=== PATIENT | female | born 1955 | race Caucasian/White ===

== ENCOUNTER 2019-08-17 17:48 | Outpatient (CLI) | payer MEDICARE, OTHER, SELFPAY ==
[2019-08-20 09:13] LABS: Basophils Absolute Auto 0.02 K/mm3 (0.00-0.10); Basophils Percent Auto 0.3 % (0.0-1.0); Eosinophils Absolute Auto 0.15 K/mm3 (0.02-0.50); Eosinophils Percent Auto 1.9 % (1.0-6.0); Hematocrit 47.8 % (35.0-42.0); Hemoglobin 15.8 g/dL (11.7-13.8); Immature Granulocyte Absolute 0.03 K/mm3 (0.00-0.00); Immature Granulocyte Percent A 0.4 % (0.0-0.0); Immature Platelet Fraction Pct 4.9 % (1.0-7.0); Lymphocytes Absolute Auto 1.18 K/mm3 (1.10-4.50); Lymphocytes Percent Auto 14.8 % (18.0-42.0); Mean Corpuscular HGB Conc 33.1 g/dL (32.0-36.0); Mean Corpuscular Hemoglobin 31.2 pg (27.0-31.0); Mean Corpuscular Volume 94.5 fL (78.0-102.0); Mean Platelet Volume 11.8 fl (9.2-11.8); Monocytes Absolute Auto 0.42 K/mm3 (0.10-0.90); Monocytes Percent Auto 5.3 % (2.0-11.0); Neutrophils Absolute Auto 6.2 K/mm3 (1.7-7.2); Neutrophils Percent Auto 77.3 % (50.0-70.0); Platelet Count Result 118 K/mm3 (150-420); Red Blood Count 5.06 M/mm3 (4.20-5.40); Red Cell Distribution Width 16.6 % (11.6-14.4)
[2019-08-20 09:23] LABS: Alanine Aminotransferase 21 U/L (14-59); Albumin Level 4.2 g/dL (3.4-5.0); Alkaline Phosphatase 131 U/L (46-116); Anion Gap 11.8 mmol/L (7-16); Aspartate Amino Transferase 27 U/L (15-37); Blood Urea Nitrogen 45 mg/dL (7-18); Calcium 9.1 mg/dL (8.5-10.1); Carbon Dioxide 37 mmol/L (21-32); Chloride 91 mmol/L (98-108); Estimated Glomerular Filt Rate 26; Glucose 164 mg/dL (70-99); Osmolality Calculated 299 mOsm/kg (285-295); Potassium 2.8 mmol/L (3.5-5.1); Sodium 137 mmol/L (136-145); Total Protein 7.3 g/dL (6.4-8.2)
[2019-08-22 01:04] LABS: Immunoglobulin E 194 kU/L (<=114)
== END 2019-08-17 17:49 | disposition home or self-care (01) ==
LOC: CHSLAB 18:00
PROVIDERS: Internal Medicine Cardiovascular Disease; PCP Nurse Practitioner Family
DX: J43.9 Emphysema, unspecified (principal); I48.19 Other persistent atrial fibrillation; I50.32 Chronic diastolic (congestive) heart failure; R19.7 Diarrhea, unspecified
CPT/HCPCS: 36415; 80053; 82785; 85025; 85055

== ENCOUNTER 2019-08-22 14:43 | Outpatient (CLI) | payer MEDICARE, SELFPAY ==
[2019-08-22 15:47] LABS: Anion Gap 13.6 mmol/L (7-16); Blood Urea Nitrogen 42 mg/dL (7-18); Calcium 8.8 mg/dL (8.5-10.1); Carbon Dioxide 32 mmol/L (21-32); Chloride 95 mmol/L (98-108); Estimated Glomerular Filt Rate 34; Glucose 132 mg/dL (70-99); Osmolality Calculated 296 mOsm/kg (285-295); Potassium 3.6 mmol/L (3.5-5.1); Sodium 137 mmol/L (136-145)
== END 2019-08-22 14:44 | disposition home or self-care (01) ==
LOC: CHSLAB 14:47
PROVIDERS: PCP Nurse Practitioner Family
DX: E87.6 Hypokalemia (principal)
CPT/HCPCS: 80048

== ENCOUNTER 2019-08-23 12:10 | Outpatient (CLI) | payer MEDICARE, OTHER, SELFPAY ==
--- NOTE | ~2019-08-23 | MM_ITS ---
EXAMINATION: MM screening chester BI w toan HISTORY: Screening mammogram TECHNIQUE: Craniocaudal and mediolateral oblique 3-D tomosynthesis images were obtained and synthetic 2-D images were generated. CAD analysis was submitted and interpreted. COMPARISON: 04/13/2010 bilateral digital screening mammogram BREAST PARENCHYMAL COMPOSITION: There are scattered areas of fibroglandular density. FINDINGS: Numerous bilateral benign calcified microhematomas. There is no evidence of suspicious mass , calcification, or architectural distortion to suggest malignancy in either breast. There has been n o suspicious interval change. IMPRESSION: 1. No mammographic evidence of malignancy. 2. Recommend routine screening mammography in one year. BI-RADS Category 2: Benign finding(s). Reviewed, dictated and finalized at location B. S MELT OPERATOR
== END 2019-08-23 12:11 | disposition home or self-care (01) ==
LOC: CHSIMG 12:12
PROVIDERS: PCP Nurse Practitioner Family; Visit Provider Nurse Practitioner Family
DX: Z12.31 Encounter for screening mammogram for malignant neoplasm of breast (principal)
CPT/HCPCS: 77063; 77067

== ENCOUNTER 2019-12-02 07:51 | Outpatient (CLI) | payer MEDICARE, OTHER, SELFPAY ==
--- NOTE | ~2019-12-02 | CT_ITS ---
EXAMINATION:CT chest w con DATE: 12/02/2019 08:43 INDICATION: Non-small cell left lung cancer. TECHNIQUE: Computed tomography (CT) of the chest was performed with 75 mL Omnipaque 350 intravenous c ontrast. Automated exposure control and iterative reconstruction technique were employed. The dose-le ngth product (DLP) was 880.10 mGy-cm. COMPARISON: Chest CT 08/06/2019 FINDINGS: There is mild emphysema. There is a 5 mm nodule in right lower lobe. There is a 4 mm nodule in right lower lobe. There is a 6 mm nodule in right lower lobe. There is a 6 mm nodule in left lowe r lobe. There is a 4 mm nodule in left upper lobe. There is a 12 mm nodule in left upper lobe, decrea sed from 26 mm on 08/06/2019. There are mild groundglass opacities in left upper lobe, likely radiatio n pneumonitis. No pleural effusion. There is a 10 x 14 mm left hilar lymph node. Cardiomegaly is note d. There are coronary artery calcifications. No pericardial effusion. There are calcifications of the aortic valve. The central pulmonary arteries are enlarged, consistent with pulmonary arterial hypert ension. There is levoscoliosis of upper thoracic spine and dextroscoliosis of mid thoracic spine. The re is severe thoracic spondylosis. IMPRESSION: 1. 12 mm nodule in left lung upper lobe with improvement from 26 mm, consistent with primary bronchog enic carcinoma. 2. Stable borderline enlarged left hilar lymph node, which is indeterminate for metastatic disease. 3. Worsened small pulmonary nodules, which may be granulomatous disease or metastatic disease. Reviewed, dictated and finalized at location E. IMPRESSION: 1. 12 mm nodule in left lung upper lobe with improvement from 26 mm, consistent with primary bronchogenic carcinoma. 2. Stable borderline enlarged left hilar lymph node, which is indeterminate for metastatic disease. 3. Worsened small pulmonary nodules, which may be granulomatous disease or meta static disease.
[2019-12-02 08:13] LABS: Estimated Glomerular Filt Rate 31
== END 2019-12-02 07:52 | disposition home or self-care (01) ==
PROVIDERS: PCP Nurse Practitioner Family; Visit Provider Internal Medicine Medical Oncology
DX: C34.92 Malignant neoplasm of unspecified part of left bronchus or lung (principal)
CPT/HCPCS: 71260; Q9965

== ENCOUNTER 2019-12-12 11:28 | Outpatient (CLI) | payer MEDICARE, SELFPAY ==
[2019-12-12 12:57] LABS: Anion Gap 15.4 mmol/L (7-16); Blood Urea Nitrogen 35 mg/dL (7-18); Carbon Dioxide 30 mmol/L (21-32); Chloride 96 mmol/L (98-108); Estimated Glomerular Filt Rate 34; Glucose 136 mg/dL (70-99); Osmolality Calculated 296 mOsm/kg (285-295); Potassium 3.4 mmol/L (3.5-5.1); Sodium 138 mmol/L (136-145)
== END 2019-12-12 11:29 | disposition home or self-care (01) ==
LOC: CHSLAB 11:31
PROVIDERS: PCP Nurse Practitioner Family; Visit Provider Nurse Practitioner Adult Health
DX: I50.32 Chronic diastolic (congestive) heart failure (principal)
CPT/HCPCS: 36415; 80048

== ENCOUNTER 2020-03-03 07:31 | Outpatient (CLI) | payer MEDICARE, OTHER, SELFPAY ==
--- NOTE | ~2020-03-03 | CT_ITS ---
EXAMINATION: CT chest w con EXAM DATE: 03/03/2020 08:39 INDICATION: Follow-up non-small cell lung cancer. COPD. TECHNIQUE: Spiral CT of the chest following intravenous injection of 75 mL Omnipaque 350. Axial, cor onal and sagittal images were reviewed. Coronal maximum intensity pixel images of chest reviewed. T alvaro dose-length product (DLP) for this examination was 992.81 mGy-cm. The exposure was tailored accor ding to patient size (auto mA exposure control), and iterative reconstruction (ASIR) was used as juan alberto tional dose reduction technique. Comparison is made to prior examination from 12/02/2019. FINDINGS: Previously seen round left upper lobe nodule at 12 mm diameter has continued to decrease i n size, now is more narrow in one dimension at 12 x 8 mm. Several other small pulmonary nodules, 4 mm or less unchanged. These could be granulomas but metastatic disease not excludable. Left lung linear atelectasis is unchanged. No new nodules identified. There is mild to moderate emphysema. There is been interval increase in size of left hilar lymph node, measuring 3.0 x 1.7 cm on this exam versus 1.8 x 0.8 on prior study, likely metastatic disease. No other pathologically enlarged lymph n odes. There are no pleural or pericardial effusions. Tracheobronchial tree is patent. There is no pneumothorax. Heart normal in size. There is mild coronary arterial calcification, arterial scle rosis. Low-density left adrenal gland lesion incompletely imaged but measuring about 2 cm, consisten t with adenoma. There is moderate thoracic spondylosis and mild to moderate upper thoracic levoscoli osis, mid thoracic dextroscoliosis. IMPRESSION: 1. Decrease in size of left upper lobe nodule consistent with primary bronchogenic carcinoma. 2. Increase in size of left hilar lymph node, now pathologically enlarged, metastatic. 3. Several small nodules unchanged. Granulomata or possibly metastatic. 4. Mild to moderate emphysema. Reviewed, dictated and finalized at location B. IMPRESSION: 1. Decrease in size of left upper lobe nodule consistent with primary bronchog enic carcinoma. 2. Increase in size of left hilar lymph node, now pathologically enlarged, met astatic. 3. Several small nodules unchanged. Granulomata or possibly metastatic. 4. Mild to moderate emphysema.
[2020-03-03 07:54] LABS: Estimated Glomerular Filt Rate 36
== END 2020-03-03 07:32 | disposition home or self-care (01) ==
PROVIDERS: PCP Nurse Practitioner Family; Visit Provider Internal Medicine Medical Oncology
DX: C34.92 Malignant neoplasm of unspecified part of left bronchus or lung (principal); C34.12 Malignant neoplasm of upper lobe, left bronchus or lung
CPT/HCPCS: 71260; Q9965

== ENCOUNTER 2020-03-06 12:55 | Outpatient (CLI) | payer MEDICARE, SELFPAY ==
[2020-03-06 13:10] LABS: Basophils Absolute Auto 0.02 K/mm3 (0.00-0.10); Basophils Percent Auto 0.3 % (0.0-1.0); Eosinophils Absolute Auto 0.17 K/mm3 (0.02-0.50); Eosinophils Percent Auto 2.6 % (1.0-6.0); Hematocrit 35.2 % (35.0-42.0); Hemoglobin 11.1 g/dL (11.7-13.8); Immature Granulocyte Absolute 0.03 K/mm3 (0.00-0.00); Immature Granulocyte Percent A 0.5 % (0.0-0.0); Lymphocytes Absolute Auto 0.89 K/mm3 (1.10-4.50); Lymphocytes Percent Auto 13.8 % (18.0-42.0); Mean Corpuscular HGB Conc 31.5 g/dL (32.0-36.0); Mean Corpuscular Volume 98.3 fL (78.0-102.0); Mean Platelet Volume 10.6 fl (9.2-11.8); Monocytes Absolute Auto 0.29 K/mm3 (0.10-0.90); Monocytes Percent Auto 4.5 % (2.0-11.0); Neutrophils Absolute Auto 5.1 K/mm3 (1.7-7.2); Neutrophils Percent Auto 78.3 % (50.0-70.0); Platelet Count Result 119 K/mm3 (150-420); Red Blood Count 3.58 M/mm3 (4.20-5.40); Red Cell Distribution Width 16.5 % (11.6-14.4); White Blood Count 6.5 K/mm3 (4.8-10.8)
[2020-03-06 14:41] LABS: Alanine Aminotransferase 25 U/L (14-59); Albumin Level 3.5 g/dL (3.4-5.0); Alkaline Phosphatase 91 U/L (46-116); Anion Gap 9 mmol/L (8-16); Aspartate Amino Transferase 27 U/L (15-37); Bilirubin,Total 0.9 mg/dL (0.00-1.00); Blood Urea Nitrogen 22 mg/dL (7-18); Calcium 8.5 mg/dL (8.5-10.1); Carbon Dioxide 29 mmol/L (21-32); Chloride 101 mmol/L (98-108); Estimated Glomerular Filt Rate 41; Glucose 167 mg/dL (70-99); Osmolality Calculated 295 mOsm/kg (285-295); Potassium 3.8 mmol/L (3.5-5.1); Sodium 139 mmol/L (136-145); Total Protein 6.6 g/dL (6.4-8.2)
== END 2020-03-06 12:56 | disposition home or self-care (01) ==
LOC: CHSLAB 12:59
PROVIDERS: PCP Nurse Practitioner Family; Visit Provider Internal Medicine Cardiovascular Disease
DX: I50.32 Chronic diastolic (congestive) heart failure (principal); D73.2 Chronic congestive splenomegaly
CPT/HCPCS: 36415; 80053; 85025

== ENCOUNTER 2020-05-05 10:11 | Emergency (ER) | payer MEDICARE, OTHER, SELFPAY ==
[2020-05-05 11:00] VITALS: BP 118/65; PULSE 100; RESP 20; TEMP 36.1; O2SAT 96
--- NOTE | 2020-05-05 11:01 | ED.RECABL ---
HPI - Recheck/Abnormal Lab/Rx General Chief Complaint: Recheck/Abnormal Lab/Rx Stated Complaint: High blood surgar Time Seen by Provider: 05/05/20 11:02 Source: patient Mode of arrival: wheelchair Limitations: no limitations History of Present Illness HPI narrative: 64-year-old woman being treated for a lung nodule with radio and chemotherapy comes in today complaining of an elevated blood sugar. She states she got chemotherapy and some fluids yesterday and labs there showed a blood sugar of 300. She rechecked her blood sugar this morning using her 's glucometer and it was a high reading. She denies history of diabetes and a family history of diabetes. She states she does not believe she is taking any steroids. MD complaint: abnormal lab Initial visit (ago): day(s) (1) Returns today for: called because of abnormal lab/test Symptoms since prior visit: no new symptoms Associated symptoms: shortness of breath (chronic) and nausea (and one episode of vomiting in the last day) Related Data Home Medications Medication Instructions Recorded Confirmed apixaban 5 mg tablet 5 mg PO BID 08/05/19 05/05/20 carvedilol 25 mg tablet 37.5 mg PO DAILY tablet 08/05/19 05/05/20 diltiazem HCl 240 mg 240 mg PO DAILY 08/05/19 05/05/20 capsule,extended release 24 hr magnesium oxide 400 mg PO DAILY 08/05/19 05/05/20 calcium carbonate 600 mg (1,500 1 cap PO BID cap 12/20/19 05/05/20 mg)-vitamin D3 500 unit capsule metolazone 5 mg tablet 5 mg PO DAILY 12/20/19 05/05/20 potassium chloride 10 mEq 20 meq PO BID cap 12/20/19 05/05/20 capsule,extended release Allergies Allergy/AdvReac Type Severity Reaction Status Date / Time acetaminophen [Vicodin] Allergy Intermediate unkown Verified 03/06/20 07:52 hydrocodone [Vicodin] Allergy Intermediate unknown Verified 03/06/20 07:52 Review of Systems Constitutional: Constitutional: Denies chills, Denies fever(s) and Denies weakness Eyes: Eyes: Denies change in vision and Denies photophobia ENT: Denies dysphagia, Denies nasal congestion and Denies sore throat Cardiovascular: Cardiovascular: Denies chest pain and Denies radiating jaw, neck or arm pain Respiratory: Respiratory: Denies cough, Denies dyspnea and Denies wheezing Gastrointestinal: Gastrointestinal: Denies abdominal pain, Reports nausea and Reports vomiting Genitourinary: Genitourinary: Denies nocturia and Denies dysuria Musculoskeletal: Musculoskeletal: Denies arthralgias and Denies joint swelling Integumentary/Breasts: Skin/Breast: Denies pruritus, Denies erythema and Denies rash Neurologic: Denies vertigo, Denies dizziness and Denies syncope Hematologic/Lymphatic: Hematologic/Lymphatic: Reports easy bleeding and Reports easy bruising (on Apixiban) Allergic/Immunologic: Allergic/Immunologic: Denies lip swelling and Denies tongue swelling PMF Past Medical History Medical History (Updated 05/05/20 @ 13:20 by Niraj Gonzalez MD) Afib Benign hypertension CHF (congestive heart failure) COPD (chronic obstructive pulmonary disease) Generalized anxiety disorder Ileostomy present Nicotine dependence Non-small cell lung cancer (NSCLC) Obesity, morbid, BMI 50 or higher On home oxygen therapy Peripheral neuropathy PVD (peripheral vascular disease) Sleep apnea with use of continuous positive airway pressure (CPAP) Surgical History Surgical History H/O of hysterectomy with bilateral oophorectomy (~2001) History of cholecystectomy History of colectomy (~2010) for diverticulitis History of knee replacement procedure of left knee History of knee replacement procedure of right knee Family History Family History Father Lung cancer Mother Lung cancer TIA (transient ischemic attack) Social History Social History Smoking pa
[2020-05-05 11:17] LABS: Glucose Point of Care 413 (65-105)
[2020-05-05 11:40] LABS: Basophils Absolute Auto 0.01 K/mm3 (0.00-0.10); Basophils Percent Auto 0.2 % (0.0-1.0); Hematocrit 30.3 % (35.0-42.0); Hemoglobin 10.3 g/dL (11.7-13.8); Immature Granulocyte Absolute 0.05 K/mm3 (0.00-0.00); Lymphocytes Absolute Auto 0.32 K/mm3 (1.10-4.50); Lymphocytes Percent Auto 6.6 % (18.0-42.0); Mean Corpuscular Hemoglobin 31.7 pg (27.0-31.0); Mean Corpuscular Volume 93.2 fL (78.0-102.0); Mean Platelet Volume 10.9 fl (9.2-11.8); Neutrophils Absolute Auto 4.4 K/mm3 (1.7-7.2); Neutrophils Percent Auto 90.2 % (50.0-70.0); Platelet Count Result 135 K/mm3 (150-420); Red Blood Count 3.25 M/mm3 (4.20-5.40); White Blood Count 4.9 K/mm3 (4.8-10.8)
[2020-05-05 11:49] LABS: Hemoglobin A1C 8.3 % (<5.7)
[2020-05-05 11:52] LABS: Alanine Aminotransferase 28 U/L (14-59); Albumin Level 3.6 g/dL (3.4-5.0); Alkaline Phosphatase 126 U/L (46-116); Anion Gap 12 mmol/L (8-16); Aspartate Amino Transferase 25 U/L (15-37); Bilirubin,Total 0.8 mg/dL (0.00-1.00); Blood Urea Nitrogen 41 mg/dL (7-18); Calcium 8.2 mg/dL (8.5-10.1); Carbon Dioxide 26 mmol/L (21-32); Chloride 90 mmol/L (98-108); Estimated CRCL calculation 38 ml/min; Estimated Glomerular Filt Rate 28; Osmolality Calculated 297 mOsm/kg (285-295); Potassium 3.7 mmol/L (3.5-5.1); Sodium 128 mmol/L (136-145); Total Protein 6.9 g/dL (6.4-8.2)
[2020-05-05 11:56] LABS: Glucose 481 mg/dL (70-99)
[2020-05-05] MEDS: SODIUM CHLORIDE 0.9% IV 1,000 ML 999 ML IV CONT (12:20)
[2020-05-05 12:22] LABS: Add Urine Microscopic? YES; Appearance Urine Clear (Clear); Bilirubin Urine Negative (Negative); Blood Urine Negative (Negative); Color Urine Yellow (Yellow); Glucose Urine UA 3+ (Negative); Ketones Urine Negative (Negative); Leukocyte Esterase Ur Negative (Negative); Nitrate Urine Negative (Negative); Protein Urine Negative (Negative); Urobilinogen Urine 0.2 mg/dL (0.2-1.0)
[2020-05-05 12:24] LABS: Lactic Acid Reflex 3.6 mmol/L (0.4-2.0)
[2020-05-05 12:40] LABS: Bacteria Urine None seen /hpf; RBC Urine 0-2 /hpf (0-2); Squamous Epithelial Cell Urine Rare /hpf (Few); WBC Urine 0-3 /hpf (0-3)
[2020-05-05 13:11] VITALS: BP 147/72; PULSE 81; RESP 20; O2SAT 98
[2020-05-05 15:08] LABS: Reflex Lactic Acid Yes or No Add Lactic
== END 2020-05-05 13:30 | disposition home or self-care (01) ==
PROVIDERS: Emergency Provider Emergency Medicine; PCP Nurse Practitioner Family
DX: R73.9 Hyperglycemia, unspecified (principal); E86.0 Dehydration; I48.91 Unspecified atrial fibrillation; I10 Essential (primary) hypertension; J44.9 Chronic obstructive pulmonary disease, unspecified; I50.9 Heart failure, unspecified; Z99.81 Dependence on supplemental oxygen; F17.200 Nicotine dependence, unspecified, uncomplicated
CPT/HCPCS: 36415; 80053; 81001; 83036; 83605; 85025; 87040; 96360; 99282; 99283; J7030

== ENCOUNTER 2020-05-08 13:38 | Outpatient (CLI) | payer MEDICARE, SELFPAY ==
[2020-05-08 14:28] LABS: Creatinine Urine 23.25 mg/dL (40-278); MALB Creatinine Ratio 55.9 mg/g (0-30); Microalbumin Urine Random < 13.0 mg/L
[2020-05-08 15:05] LABS: Alanine Aminotransferase 28 U/L (14-59); Albumin Level 3.9 g/dL (3.4-5.0); Alkaline Phosphatase 114 U/L (46-116); Anion Gap -3 mmol/L (8-16); Aspartate Amino Transferase 29 U/L (15-37); Blood Urea Nitrogen 32 mg/dL (7-18); Calcium 8.6 mg/dL (8.5-10.1); Carbon Dioxide 33 mmol/L (21-32); Chloride 99 mmol/L (98-108); Cholesterol 110 mg/dL (0-200); Estimated Glomerular Filt Rate 37; Glucose 213 mg/dL (70-99); HDL Direct 50 mg/dL (40-60); LDL Cholesterol Calculated 44 mg/dL (<130); Osmolality Calculated 280 mOsm/kg (285-295); Potassium 3.2 mmol/L (3.5-5.1); Sodium 129 mmol/L (136-145); Total Protein 6.6 g/dL (6.4-8.2); Triglycerides 79 mg/dL (0-150)
== END 2020-05-08 13:39 | disposition home or self-care (01) ==
LOC: CHSLAB 13:41
PROVIDERS: PCP Family Medicine; Visit Provider Family Medicine
DX: E87.1 Hypo-osmolality and hyponatremia (principal); I10 Essential (primary) hypertension; E11.9 Type 2 diabetes mellitus without complications; R30.0 Dysuria
CPT/HCPCS: 36415; 80053; 80061; 82043; 87077; 87086; 87088; 87186

== ENCOUNTER 2020-05-17 15:59 | Emergency (ER) | payer MEDICARE, OTHER, SELFPAY ==
--- NOTE | ~2020-05-17 | XR_ITS ---
XR chest 2V 05/17/2020 17:12 Indication: Altered mental status. COPD. Procedure: AP and lateral views of the chest Comparison: Comparison to multiple prior studies sequentially, with oldest reviewed study dated 11/09. Findings: Cardiomegaly. There are linear infiltrates of the left upper lobe, likely postsurgical. The mass identified on chest x-ray dated 08/05/2019 not identified on current study, likely surgically ab sent. There is mild interstitial edema. Impression: 1: Cardiomegaly with mild interstitial edema. 2: Linear infiltrates of the left upper lung zone may be postsurgical or status post radiation thera py. Reviewed, dictated and finalized at location A. EE WEIGHER Impression: 1: Cardiomegaly with mild interstitial edema. 2: Linear infiltrates of the left upper lung zone may be postsurgical or statu s post radiation therapy.
[2020-05-17 16:17] VITALS: BP 129/52; PULSE 95; RESP 20; TEMP 36.3; O2SAT 94
--- NOTE | 2020-05-17 16:28 | ECG_ITS ---
Measurements Intervals [place] Rate: 90 P: AR: 0 QRS: 32 QRSD: 93 T: 36 QT: 350 QTc: 429 Interpretive Statements ATRIAL FIBRILLATION LOW QRS VOLTAGE IN PRECORDIAL LEADS BORDERLINE ST-T WAVE ABNORMALITY- HIGH LATERAL LEADS BASELINE ARTIFACT- I, II, III, AVL, V1 ABNORMAL ECG Electronically Signed On 05-18-2020 7:23:44 SCHEDULING ASSISTANT by Charles Garcia D.O.
--- NOTE | 2020-05-17 16:32 | ED.AMS ---
HPI - Altered Mental Status General Chief Complaint: Unspecified Stated Complaint: dehydration,wants fluids Time Seen by Provider: 05/17/20 16:22 Source: patient and family Mode of arrival: wheelchair Limitations: no limitations History of Present Illness HPI narrative: 64-year-old woman with a history of COPD, radium a chemo treatment for non-small cell carcinoma, and atrial fibrillation comes in today complaining confusion. Her sent her here because she is not herself and feels weak. She was seen by her primary care doctor 1 week ago and placed on cephalexin for a UTI on 05/11. She denies nausea, vomiting, diarrhea, chest pain, new shortness of breath, dysuria, hematuria, black or bloody stools, and syncope. She was seen here 10 days ago with hyponatremia, hypokalemia, hyperglycemia, and dehydration. Her doctor placed her on Ozempic and metformin at that time. MD complaint: confusion Onset (ago): day(s) (1) Timing confirmed by: family member Severity: moderate Consistency of symptoms: getting Worse Context: diabetes Associated symptoms: malaise Related Data Home Medications Medication Instructions Recorded Confirmed apixaban 5 mg tablet 5 mg PO BID 08/05/19 05/17/20 carvedilol 25 mg tablet 37.5 mg PO DAILY tablet 08/05/19 05/17/20 diltiazem HCl 240 mg 240 mg PO DAILY 08/05/19 05/17/20 capsule,extended release 24 hr magnesium oxide 400 mg PO DAILY 08/05/19 05/17/20 calcium carbonate 600 mg (1,500 1 cap PO BID cap 12/20/19 05/17/20 mg)-vitamin D3 500 unit capsule metolazone 5 mg tablet 5 mg PO DAILY 12/20/19 05/17/20 potassium chloride 10 mEq 20 meq PO BID cap 12/20/19 05/17/20 capsule,extended release Allergies Allergy/AdvReac Type Severity Reaction Status Date / Time acetaminophen [Vicodin] Allergy Intermediate unkown Verified 05/17/20 16:22 hydrocodone [Vicodin] Allergy Intermediate unknown Verified 05/17/20 16:22 Review of Systems Constitutional: Constitutional: Denies chills, Denies fever(s) and Reports weakness Eyes: Eyes: Denies change in vision and Denies photophobia ENT: Denies dysphagia, Denies nasal congestion and Denies sore throat Cardiovascular: Cardiovascular: Denies chest pain and Denies radiating jaw, neck or arm pain Respiratory: Respiratory: Denies cough, Reports dyspnea (no more than usual) and Denies wheezing Gastrointestinal: Gastrointestinal: Denies abdominal pain, Denies diarrhea, Denies nausea and Denies vomiting Genitourinary: Genitourinary: Denies hematuria, Denies nocturia and Denies dysuria Musculoskeletal: Musculoskeletal: Denies arthralgias and Denies joint swelling Integumentary/Breasts: Skin/Breast: Denies pruritus, Denies erythema and Denies rash Neurologic: Reports as per HPI, Reports confusion, Denies vertigo, Denies dizziness and Denies syncope Endocrine: Endocrine: Denies polydipsia and Denies polyuria Hematologic/Lymphatic: Hematologic/Lymphatic: Denies easy bleeding and Reports easy bruising Allergic/Immunologic: Allergic/Immunologic: Denies lip swelling and Denies tongue swelling PMFSH Past Medical History Medical History Afib Benign hypertension CHF (congestive heart failure) COPD (chronic obstructive pulmonary disease) DM2 (diabetes mellitus, type 2) Generalized anxiety disorder Ileostomy present Nicotine dependence Non-small cell lung cancer (NSCLC) Obesity, morbid, BMI 50 or higher On home oxygen therapy Peripheral neuropathy PVD (peripheral vascular disease) Sleep apnea with use of continuous positive airway pressure (CPAP) Surgical History Surgical History H/O of hysterectomy with bilateral oophorectomy (~2001) History of cholecystectomy History of colectomy (~2010) for diverticulitis History of knee replacement procedure of left knee History of knee replacement procedure of right knee Family History Family Histor
[2020-05-17] MEDS: SODIUM CHLORIDE 0.9% IV 500 ML 999 ML IV CONT (16:42)
[2020-05-17 17:07] LABS: Hematocrit 28.3 % (35.0-42.0); Hemoglobin 9.3 g/dL (11.7-13.8); Mean Corpuscular HGB Conc 32.9 g/dL (32.0-36.0); Mean Corpuscular Hemoglobin 31.4 pg (27.0-31.0); Mean Corpuscular Volume 95.6 fL (78.0-102.0); Mean Platelet Volume 10.5 fl (9.2-11.8); Platelet Count Result 129 K/mm3 (150-420); Red Blood Count 2.96 M/mm3 (4.20-5.40); Red Cell Distribution Width 18.5 % (11.6-14.4)
[2020-05-17 17:20] LABS: Lactic Acid Reflex 2.7 mmol/L (0.4-2.0)
[2020-05-17 17:31] LABS: Alanine Aminotransferase 22 U/L (14-59); Albumin Level 3.5 g/dL (3.4-5.0); Alkaline Phosphatase 129 U/L (46-116); Anion Gap 9 mmol/L (8-16); Aspartate Amino Transferase 19 U/L (15-37); BNP 293 pg/mL (0-100); Blood Urea Nitrogen 47 mg/dL (7-18); Calcium 8.4 mg/dL (8.5-10.1); Carbon Dioxide 31 mmol/L (21-32); Chloride 94 mmol/L (98-108); Creatine Kinase 29 U/L (26-192); Estimated CRCL calculation 22 ml/min; Estimated Glomerular Filt Rate 15; Glucose 145 mg/dL (70-99); Osmolality Calculated 293 mOsm/kg (285-295); Potassium 3.6 mmol/L (3.5-5.1); Sodium 134 mmol/L (136-145); Total Protein 6.8 g/dL (6.4-8.2)
[2020-05-17 17:32] LABS: Ammonia < 10 umol/L (11-32); Troponin I < 0.02 ng/mL (0.00-0.056)
[2020-05-17 17:39] VITALS: BP 105/40; PULSE 75; RESP 18; O2SAT 99
[2020-05-17 17:45] LABS: Band Neutrophils Percent 0 % (0-6); Basophils Percent Manual 0 % (0-1); Eosinophils Absolute Manual 0.03 K/mm3 (0.02-0.5); Eosinophils Percent Manual 1 % (1-6); Lymphocytes Absolute Manual 0.66 K/mm3 (1.1-4.5); Lymphocytes Percent Manual 22 % (18-44); Monocytes Absolute Manual 0.15 K/mm3 (0.1-0.90); Monocytes Percent Manual 5 % (3-9); Neutrophils Absolute Manual 2.16 K/mm3 (1.7-7.2); Neutrophils Percent Manual 72 % (46-73); Platelet Estimate Adequate (Adequate); Total Cells Counted 100
[2020-05-17 17:50] LABS: Add Urine Microscopic? YES; Appearance Urine Clear (Clear); Bilirubin Urine 1+ (Negative); Blood Urine Negative (Negative); Color Urine Yellow (Yellow); Glucose Urine UA Negative (Negative); Ketones Urine Trace (Negative); Leukocyte Esterase Ur 1+ LEU/UL (Negative); Nitrate Urine Negative (Negative); Protein Urine Negative (Negative); Specific Grav Ur >= 1.030 (1.010-1.020); Urobilinogen Urine 0.2 mg/dL (0.2-1.0)
[2020-05-17] MEDS: SODIUM CHLORIDE 0.9% IV 1,000 ML 999 ML IV CONT (17:53)
[2020-05-17 17:57] LABS: Squamous Epithelial Cell Urine Moderate /hpf (Few)
[2020-05-17 17:58] LABS: Bacteria Urine 1+ /hpf
[2020-05-17 18:36] VITALS: BP 110/55; PULSE 74; RESP 18; TEMP 36.7; O2SAT 99
[2020-05-17 20:00] LABS: Reflex Lactic Acid Yes or No Add Lactic
--- NOTE | 2020-06-12 13:23 | PC.NURSE ---
LATE ENTRY This note is being entered to document information to the patient's record. The following information was omitted on 05/17/20, by AMY Nj. Pt received 1L NS infusion per EDP written order. Infusion completed 1 hr after initiation.
== END 2020-05-17 18:50 | disposition home or self-care (01) ==
PROVIDERS: Emergency Provider Emergency Medicine; PCP Family Medicine
DX: N17.9 Acute kidney failure, unspecified (principal); E86.0 Dehydration; E87.1 Hypo-osmolality and hyponatremia; I50.9 Heart failure, unspecified; F17.200 Nicotine dependence, unspecified, uncomplicated
CPT/HCPCS: 36415; 71046; 80053; 81001; 82140; 82550; 83605; 83880; 84443; 84484; 85025; 87040; 93005; 96360; 96361; 99283; 99284; J7030; J7040

== ENCOUNTER 2020-05-18 09:19 | Inpatient (IN) | payer MEDICARE, OTHER, SELFPAY ==
[2020-05-18] VITALS (22 sets, daily range): BP systolic 82–160; BP diastolic 38–110; PULSE 58–122; RESP 16–22; TEMP 35.7–37.1; O2SAT 89–98; BMI 52.1
--- NOTE | ~2020-05-18 | XR_ITS ---
EXAMINATION: XR chest 1V portable INDICATION: Worsening BNP, congestive heart failure TECHNIQUE: Portable AP chest at 0854 hours COMPARISON: 05/18/2020 FINDINGS: The heart size is upper limits of normal for technique. There is a mild diffuse interstitia l pattern. No pleural effusion or pneumothorax is identified. IMPRESSION: 1. Mild diffuse interstitial pattern, likely mild pulmonary edema. Reviewed, dictated and finalized at location A. GER APPLE
--- NOTE | ~2020-05-18 | XR_ITS ---
EXAMINATION: XR chest 1V portable EXAM DATE: 05/18/2020 10:14 INDICATION: Dyspnea. Weakness. Worsening confusion. TECHNIQUE: Portable AP frontal chest x-ray was obtained. Comparison is made to prior examination from 05/17/2020. FINDINGS: There is aortic arteriosclerosis. The lungs are clear. There are no pleural effusions. Ca rdiac silhouette is prominent but magnified on this AP technique. There is no pneumothorax suspecte d. The bones and soft tissues are unremarkable. There is aortic arteriosclerosis. There is no sig nificant interval change. IMPRESSION: No acute cardiopulmonary findings. Reviewed, dictated and finalized at location B. RUMENT INSTALLER
--- NOTE | 2020-05-18 09:36 | ECG_ITS ---
Measurements Intervals [place] Rate: 81 P: [place]: 0 QRS: 58 QRSD: 97 T: 78 QT: 372 QTc: 434 Interpretive Statements ATRIAL FIBRILLATION INCOMPLETE RIGHT BUNDLE BRANCH BLOCK BORDERLINE ST-T WAVE ABNORMALITY- HIGH LATERAL LEADS BASELINE ARTIFACT- I, II, III, AVR, AVL, AVF ABNORMAL ECG Electronically Signed On 05-18-2020 10:23:28 POWER PLANT OPERATOR by Charles Garcia D.O.
[2020-05-18] MEDS: IPRATROPIUM 0.5 MG/ALBUTEROL SULFATE 2.5 MG AMPUL.NEB 3 ML INHALATION (10:01)
[2020-05-18 10:06] LABS: Base Excess ABG -0.8 mmol/L (0-2); HCO3 ABG 23.4 mmol/L (23-29); Oxygen Content ABG 12.8 %vol (16.0-22.0); Oxygen Saturation ABG 96.3 % (95-97); Oxyhemoglobin 94.7 % (94-100); PCO2 ABG 36.9 mmHg (35-45); PO2 ABG 90.7 mmHg (75-85); Total Hemoglobin 9.5 g/dL; pH ABG 7.42 (7.35-7.45)
[2020-05-18 10:07] LABS: Modified Allen's Test Pass; Site Drawn RIGHT RADIAL
[2020-05-18] MEDS: methylPREDNISolone SOD SUCC 125 MG VIAL IV PUSH (10:07)
[2020-05-18 10:08] LABS: Device NASAL CANNULA
[2020-05-18 10:11] LABS: Hematocrit 24.9 % (35.0-42.0); Hemoglobin 8.3 g/dL (11.7-13.8); Mean Corpuscular HGB Conc 33.3 g/dL (32.0-36.0); Mean Corpuscular Hemoglobin 32.3 pg (27.0-31.0); Mean Corpuscular Volume 96.9 fL (78.0-102.0); Mean Platelet Volume 10.7 fl (9.2-11.8); Platelet Count Result 111 K/mm3 (150-420); Red Blood Count 2.57 M/mm3 (4.20-5.40); Red Cell Distribution Width 18.7 % (11.6-14.4); White Blood Count 3.2 K/mm3 (4.8-10.8)
--- NOTE | 2020-05-18 10:21 | PC.NURSE ---
daughter in with pt. awaiting diagnostic results. pt sitting up in the cot, head of bed elevated.
[2020-05-18 10:24] LABS: BNP 259 pg/mL (0-100)
[2020-05-18 10:28] LABS: Alanine Aminotransferase 21 U/L (14-59); Albumin Level 3.2 g/dL (3.4-5.0); Alkaline Phosphatase 119 U/L (46-116); Anion Gap 12 mmol/L (8-16); Aspartate Amino Transferase 15 U/L (15-37); Bilirubin,Total 0.9 mg/dL (0.00-1.00); Blood Urea Nitrogen 53 mg/dL (7-18); Calcium 8.3 mg/dL (8.5-10.1); Carbon Dioxide 27 mmol/L (21-32); Chloride 97 mmol/L (98-108); Estimated CRCL calculation 15 ml/min; Estimated Glomerular Filt Rate 9; Glucose 181 mg/dL (70-99); Magnesium 1.5 mg/dL (1.8-2.4); Osmolality Calculated 301 mOsm/kg (285-295); Sodium 136 mmol/L (136-145); Total Protein 6.4 g/dL (6.4-8.2)
[2020-05-18 10:29] LABS: Influenza Control Valid (Valid)
[2020-05-18 10:30] LABS: Troponin I < 0.02 ng/mL (0.00-0.056)
[2020-05-18 10:32] LABS: INR 1.3; Partial Thromboplastin Time 30.4 SEC (22.3-31.6); Prothrombin Time 13.1 Seconds (9.64-11.0)
[2020-05-18 10:40] LABS: Band Neutrophils Percent 2 % (0-6); Eosinophils Absolute Manual 0.03 K/mm3 (0.02-0.5); Eosinophils Percent Manual 1 % (1-6); Lymphocytes Absolute Manual 0.41 K/mm3 (1.1-4.5); Lymphocytes Percent Manual 13 % (18-44); Monocytes Absolute Manual 0.19 K/mm3 (0.1-0.90); Monocytes Percent Manual 6 % (3-9); Neutrophils Absolute Manual 2.56 K/mm3 (1.7-7.2); Neutrophils Percent Manual 78 % (46-73); Total Cells Counted 100
[2020-05-18] MEDS: SODIUM CHLORIDE 0.9% IV 1,000 ML 999 ML IV CONT ×2 (11:00→11:45)
--- NOTE | 2020-05-18 11:12 | PC.NURSE ---
report to arely kitchen
[2020-05-18 11:40] LABS: Lactic Acid Reflex 2.7 mmol/L (0.4-2.0)
--- NOTE | 2020-05-18 11:56 | ED.AMS ---
HPI - Altered Mental Status General Chief Complaint: Altered Mental Status Stated Complaint: AMBULANCE Source: patient and family Mode of arrival: EMS Limitations: no limitations and altered mental status History of Present Illness HPI narrative: this is a 64-year-old female with a history of COPD, CHF atrial fibrillation history of lung cancer and received chemotherapy at [facility],Patient is currently O2 dependent and went to the bathroom earlier this a.m. and forgot to put her O2 /oxygen back on and desatted and called EMS because of low O2 and confusion. Patient was put back on her oxygen and saturations currently 98% on 3L. The patient was seen in the emergency department on 05 17 yesterday and had episode of hyponatremia and was treated. Currently the patient with all her history of CHF and hypertension is on lisinopril, diltiazem, Coreg and metolazone. 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 Currently the patient is afebrile with no shortness of breath no chest pain no abdominal pain. The patient on her visit yesterday and earlier in April had a creatinine level of 1.41 and May 082019 and yesterday on 05/17 creatinine level of 3.14- and her current creatinine level has increased to 4.87 with a BUN 53. MD complaint: altered mental status Onset (ago): hour(s) Severity: moderate Consistency of symptoms: waxing and waning Associated symptoms: denies other symptoms and shortness of breath Related Data Home Medications Medication Instructions Recorded Confirmed apixaban 5 mg tablet 5 mg PO BID 08/05/19 05/18/20 carvedilol 25 mg tablet 37.5 mg PO DAILY tablet 08/05/19 05/18/20 diltiazem HCl 240 mg 240 mg PO DAILY 08/05/19 05/18/20 capsule,extended release 24 hr magnesium oxide 400 mg PO DAILY 08/05/19 05/18/20 calcium carbonate 600 mg (1,500 1 cap PO BID cap 12/20/19 05/18/20 mg)-vitamin D3 500 unit capsule metolazone 5 mg tablet 5 mg PO DAILY 12/20/19 05/18/20 potassium chloride 10 mEq 20 meq PO BID cap 12/20/19 05/18/20 capsule,extended release Allergies Allergy/AdvReac Type Severity Reaction Status Date / Time acetaminophen [Vicodin] Allergy Intermediate unkown Verified 05/17/20 16:22 hydrocodone [Vicodin] Allergy Intermediate unknown Verified 05/17/20 16:22 Review of Systems Review of Systems: All systems reviewed & are unremarkable except as noted in HPI and below PMFSH Past Medical History Medical History Afib Benign hypertension CHF (congestive heart failure) COPD (chronic obstructive pulmonary disease) DM2 (diabetes mellitus, type 2) Generalized anxiety disorder Ileostomy present Nicotine dependence Non-small cell lung cancer (NSCLC) Obesity, morbid, BMI 50 or higher On home oxygen therapy Peripheral neuropathy PVD (peripheral vascular disease) Sleep apnea with use of continuous positive airway pressure (CPAP) Surgical History Surgical History H/O of hysterectomy with bilateral oophorectomy (~2001) History of cholecystectomy History of colectomy (~2010) for diverticulitis History of knee replacement procedure of left knee History of knee replacement procedure of right knee Family History Family History Father Lung cancer Mother Lung cancer TIA (transient ischemic attack) Social History Social History Smoking packs per day: 1 Smoking cigarettes per day: 20.0 Years smoked: 50 Smoking pack-years: 50.00 Smoking status: Current every day smoker Tobacco type: cigarettes Alcohol intake: never Substance use: never Gender identity (if verbalized by the patient): Female Spiritual care concerns: No Exam Const: Gene
--- NOTE | 2020-05-18 14:00 | PC.NURSE ---
Patient brought to room from ED and transferred to bed using safe patient handling equipment. Patient oriented to room and call light.
[2020-05-18] MEDS: SODIUM CHLORIDE 0.9% IV 1,000 ML 100 ML IV CONT (14:10)
--- NOTE | 2020-05-18 14:10 | PM.IMHP ---
H&P: HPI History of Present Illness Date/Time: 05/18/20 14:10 Chief complaint: Acute Renal Failure,Dehydration,Hypotension Narrative: Kylee Brand is a 64 year old female who was in the ER day before for altered mental status dehydration acute on chronic kidney failure. The patient elected to go home rather than observation stay because she wanted to follow-up with her oncologist today. However patient and family member who is in the room today states that the patient had increased confusion compared to yesterday. Patient was trying to walk to her wheelchair and some a ended up on the floor for about half an hour before her and her children or able to pick her up. Patient states that she is undergoing chemotherapy and radiation therapy for a tumor in the upper left lung. She had this tumor surgically removed a few months ago. Also she recently was diagnosed with the urinary tract infection culture to be E coli per the family member in the room. She was put on Keflex 05/11/2020 and the daughter believes she still has 5 more days of the Keflex antibiotic left. At this time patient states she feels better and the daughter states her mentation is about back to normal. Patient complains of a little bit of throat pain. Patient states she has had fresh in the past but did not go to see her primary about this and treated herself at home. Patient states she is on 3 L nasal cannula at home and that is being continued here in the hospital. Denies any shortness of breath or increased work of breathing. Daughter states the patient had diarrhea over the past week. Patient has decreased appetite likely related to her chemotherapy. She says that the her left leg sometimes gets swollen but this is not the case this time. She states she has noticed a little a tremor in her right hand. Denies chest pain. Review of Systems Constitutional: Constitutional: Reports as per HPI [facility] Past Medical History Medical History Afib Benign hypertension CHF (congestive heart failure) COPD (chronic obstructive pulmonary disease) DM2 (diabetes mellitus, type 2) Generalized anxiety disorder Ileostomy present Nicotine dependence Non-small cell lung cancer (NSCLC) Obesity, morbid, BMI 50 or higher On home oxygen therapy Peripheral neuropathy PVD (peripheral vascular disease) Sleep apnea with use of continuous positive airway pressure (CPAP) Surgical History Surgical History H/O of hysterectomy with bilateral oophorectomy (~2001) History of cholecystectomy History of colectomy (~2010) for diverticulitis History of knee replacement procedure of left knee History of knee replacement procedure of right knee Family History Family History Father Lung cancer Mother Lung cancer TIA (transient ischemic attack) Social History Social History Smoking packs per day: 2 Smoking cigarettes per day: 40.0 Years smoked: 50 Smoking pack-years: 100.00 Smoking status: Former smoker Tobacco type: cigarettes Smoking end date: 12/16/19 Alcohol intake: never Substance use: never Gender identity (if verbalized by the patient): Female Spiritual care concerns: No Meds Home Medications and Allergies Home Medications Medication Instructions Recorded Confirmed Type albuterol sulfate 2.5 mg INHALATION DAILY #75 ml 08/05/19 05/18/20 Rx apixaban 5 mg tablet 5 mg PO BID 08/05/19 05/18/20 History carvedilol 25 mg tablet 37.5 mg PO DAILY tablet 08/05/19 05/18/20 History diltiazem HCl 240 mg 240 mg PO DAILY 08/05/19 05/18/20 History capsule,extended release 24 hr magnesium oxide 400 mg PO DAILY 08/05/19 05/18/20 History budesonide 0.25 mg/2 mL suspension 2 ml INHALATION BID #60 ml 08/14/19 05/18/20 R
[2020-05-18 14:34] LABS: Reflex Lactic Acid Yes or No Add Lactic
--- NOTE | 2020-05-18 15:12 | PHAR ---
05/18/20 - VERIFIED WITH SARAH MULTANI BOOKKEEPING MANAGER WANTS AMBIEN 10MG DOSE (VS. 5MG BASED ON AGE).
[2020-05-18] MEDS: MAGNESIUM SULF 4 GM/WATER100ML 4 GM/100 ML BAG IVPB (15:29)
[2020-05-18 16:57] LABS: Glucose Point of Care 313 (65-105)
[2020-05-18] MEDS: INDOMETHACIN 25 MG CAPSULE PO (17:52)
[2020-05-18] MEDS: GABAPENTIN 300 MG CAPSULE PO (17:53)
[2020-05-18] MEDS: POTASSIUM CHLORIDE 20 MEQ TABLET PO (17:53)
[2020-05-18] MEDS: ALBUTEROL SULFATE NEB 2.5 MG/3 ML INH INHALATION ×2 (17:57→22:49)
[2020-05-18] MEDS: BUDESONIDE RESPULE NEB 0.25 MG/2 ML AMP 0.5 MG INHALATION (18:05)
--- NOTE | 2020-05-18 18:42 | PC.NURSE ---
notified that patient is c/o pain and burning to the catheter site. New order to d/c catheter.
[2020-05-18] MEDS: APIXABAN 2.5 MG TABLET 5 MG BY MOUTH (20:47)
[2020-05-18] MEDS: CEPHALEXIN 500 MG CAPSULE PO (20:48)
[2020-05-18 21:19] LABS: Glucose Point of Care 316 (65-105)
[2020-05-19] VITALS (7 sets, daily range): BP systolic 75–80; BP diastolic 40–48; PULSE 80–103; RESP 20–22; TEMP 36.9; O2SAT 93–99
[2020-05-19] MEDS: SODIUM CHLORIDE 0.9% IV 1,000 ML 100 ML IV CONT (00:54)
--- NOTE | 2020-05-19 02:17 | PC.NURSE ---
pt sleeping, respirations even and regular, cpap on, no evidence of distress noted at this time.
[2020-05-19] MEDS: ALBUTEROL SULFATE NEB 2.5 MG/3 ML INH INHALATION (05:34)
[2020-05-19] MEDS: BUDESONIDE RESPULE NEB 0.25 MG/2 ML AMP 0.5 MG INHALATION (05:37)
[2020-05-19 05:43] LABS: Hematocrit 24.9 % (35.0-42.0); Immature Platelet Fraction Pct 3.1 % (1.0-7.0); Mean Corpuscular HGB Conc 32.1 g/dL (32.0-36.0); Mean Corpuscular Hemoglobin 31.1 pg (27.0-31.0); Mean Corpuscular Volume 96.9 fL (78.0-102.0); Mean Platelet Volume 10.8 fl (9.2-11.8); Platelet Count Result 99 K/mm3 (150-420); Red Blood Count 2.57 M/mm3 (4.20-5.40); Red Cell Distribution Width 18.5 % (11.6-14.4); White Blood Count 3.3 K/mm3 (4.8-10.8)
[2020-05-19 05:58] LABS: Alanine Aminotransferase 21 U/L (14-59); Alkaline Phosphatase 118 U/L (46-116); Anion Gap 13 mmol/L (8-16); Aspartate Amino Transferase 13 U/L (15-37); Bilirubin,Total 0.5 mg/dL (0.00-1.00); Blood Urea Nitrogen 57 mg/dL (7-18); Calcium 7.3 mg/dL (8.5-10.1); Carbon Dioxide 22 mmol/L (21-32); Chloride 98 mmol/L (98-108); Estimated CRCL calculation 23 ml/min; Estimated Glomerular Filt Rate 15; Glucose 278 mg/dL (70-99); Magnesium 2.4 mg/dL (1.8-2.4); Osmolality Calculated 301 mOsm/kg (285-295); Potassium 4.1 mmol/L (3.5-5.1); Sodium 133 mmol/L (136-145); Total Protein 5.7 g/dL (6.4-8.2)
[2020-05-19 06:00] LABS: BNP 611 pg/mL (0-100)
[2020-05-19 06:09] LABS: Band Neutrophils Percent 2 % (0-6); Basophils Percent Manual 0 % (0-1); Eosinophils Percent Manual 0 % (1-6); Lymphocytes Absolute Manual 0.42 K/mm3 (1.1-4.5); Lymphocytes Percent Manual 13 % (18-44); Monocytes Absolute Manual 0.16 K/mm3 (0.1-0.90); Monocytes Percent Manual 5 % (3-9); Neutrophils Percent Manual 80 % (46-73)
[2020-05-19 06:10] LABS: Nucleated Red Blood Cells 1 %; Platelet Estimate Decreased (Adequate)
[2020-05-19 06:13] LABS: Lactic Acid Reflex 2.7 mmol/L (0.4-2.0)
[2020-05-19 07:35] LABS: Glucose Point of Care 282 (65-105)
[2020-05-19] MEDS: FUROSEMIDE INJ 100 MG/10 ML VIAL 80 MG IV PUSH (08:26)
[2020-05-19] MEDS: APIXABAN 2.5 MG TABLET 5 MG BY MOUTH (08:26)
[2020-05-19] MEDS: POTASSIUM CHLORIDE 20 MEQ TABLET PO (08:27)
[2020-05-19] MEDS: CEPHALEXIN 500 MG CAPSULE PO (08:27)
[2020-05-19] MEDS: allopurinoL 300 MG TABLET PO (08:27)
[2020-05-19] MEDS: GABAPENTIN 300 MG CAPSULE PO (08:27)
[2020-05-19] MEDS: INDOMETHACIN 25 MG CAPSULE PO (08:27)
[2020-05-19] MEDS: MAGNESIUM OXIDE 400 MG TABLET PO (08:27)
[2020-05-19 08:40] LABS: Reflex Lactic Acid Yes or No Add Lactic
[2020-05-19] MEDS: SODIUM CHLORIDE 0.9% IV 1,000 ML 999 ML IV CONT (09:19)
[2020-05-19] MEDS: SALMETEROL XINAFOATE 50 MCG DISKUS 1 PUFF INHALATION (09:19)
[2020-05-19 10:28] LABS: Lactic Acid 2.8 mmol/L (0.4-2.0)
--- NOTE | 2020-05-19 10:45 | PC.NURSE ---
Face sheet faxed to [facility] in [place] for patient transfer.
[2020-05-19] MEDS: SODIUM CHLORIDE 0.9% IV 1,000 ML 125 ML IV CONT (10:48)
--- NOTE | 2020-05-19 11:20 | PC.NURSE ---
Amber from [facility] with bed assignment for patient, to call EMS prior to giving report for more accurate arrival time
--- NOTE | 2020-05-19 11:22 | PC.NURSE ---
[facility] paged for transfer
--- NOTE | 2020-05-19 12:20 | P.TS_ITS ---
Transfer Discharge Sum: Prov Provider Date of admission: 05/18/20 12:11 Primary care physician: Estevan Barrera DO Admitting clinician: Ariel Burnett MD DS: Admitting Diagnosis Admitting Diagnosis Admitting Diagnosis: Acute Renal Failure,Dehydration,Hypotension DS: Discharge Diagnosis Discharge Diagnosis (1) Acute kidney failure: Qualifiers: Acute renal failure type: unspecified Qualified Code(s): N17.9 - Acute kidney failure, unspecified Code(s): N17.9 - Acute kidney failure, unspecified Status: Acute Assessment and Plan: * Possibly secondary to dehydration * Patient baseline creatinine appears to be 1.50, on admission patient BUN 3.15, later increased to 4.87 currently 3.06 * Patient will be transferred to [facility] in [place] and nephrology will be consulted. * Patient bolused 1500 mL for being transferred today * Patient received 2 L boluses in ER yesterday (2) Acute dehydration: Code(s): E86.0 - Dehydration Status: Acute Assessment and Plan: * Secondary to diarrhea (3) Hypotensive episode: Code(s): I95.9 - Hypotension, unspecified Status: Acute Assessment and Plan: * Patient blood pressure 75/48 with a map of 57, patient bolused 1 L. Afterwards patient blood pressure 80/40 with a map of 53. * Spoke with cardiology at [facility] in [place] will accept patient. Recommended the patient be bolused an additional 500 mL before discharge * Patient accepted by Dr. Manzano hospitalist (4) Pancytopenia: Code(s): D61.818 - Other pancytopenia Status: Acute Assessment and Plan: * Possibly secondary to radiology and chemo treatment * Spoke with patient's oncologist Dr. Izaguirre he suggested patient be sent to [facility] so that he can monitor patient. * Patient oncologist Dr. Izaguirre will be following her at [facility] (5) Hypomagnesemia: Code(s): E83.42 - Hypomagnesemia Status: Acute (6) UTI (urinary tract infection): Code(s): N39.0 - Urinary tract infection, site not specified Status: Acute (7) DM2 (diabetes mellitus, type 2): Code(s): E11.9 - Type 2 diabetes mellitus without complications Status: Acute Assessment and Plan: * Patient culture shows the growth of E. coli patient prescribed Keflex 500 mg p.o. every 12 hours (8) Non-small cell lung cancer (NSCLC): Code(s): C34.90 - Malignant neoplasm of unspecified part of unspecified bronchus or lung Status: Acute Assessment and Plan: * Dr. Izaguirre patient's oncologist following and managing care * Patient was previously taking chemoradiation (9) Obesity, morbid, BMI 50 or higher: Code(s): E66.01 - Morbid (severe) obesity due to excess calories Status: Acute Assessment and Plan: * Patient educated on healthy lifestyle (10) On home oxygen therapy: Code(s): Z99.81 - Dependence on supplemental oxygen Status: Acute Assessment and Plan: * Continue (11) CHF (congestive heart failure): Code(s): I50.9 - Heart failure, unspecified Status: Acute Assessment and Plan: * Patient BMP on arrival to 259 increased to 611 * Chest x-ray shows mild pulmonary edema (12) COPD (chronic obstructive pulmonary disease): Code(s): J44.9 - Chronic obstructive pulmonary disease, unspecified Status: Acute Assessment and Plan: * Continue home medication and supplementary oxygen Transfer Discharge Sum: Med Medications
--- NOTE | 2020-05-19 12:20 | PM.TDS ---
Transfer Discharge Sum: Prov Provider Date of admission: 05/18/20 12:11 Primary care physician: Estevan Barrera DO Admitting clinician: Ariel Burnett MD DS: Admitting Diagnosis Admitting Diagnosis Admitting Diagnosis: Acute Renal Failure,Dehydration,Hypotension DS: Discharge Diagnosis Discharge Diagnosis (1) Acute kidney failure: Qualifiers: Acute renal failure type: unspecified Qualified Code(s): N17.9 - Acute kidney failure, unspecified Code(s): N17.9 - Acute kidney failure, unspecified Status: Acute Assessment and Plan: Possibly secondary to dehydration Patient baseline creatinine appears to be 1.50, on admission patient BUN 3.15, later increased to 4.87 currently 3.06 Patient will be transferred to [facility] in [place] and nephrology will be consulted. Patient bolused 1500 mL for being transferred today Patient received 2 L boluses in ER yesterday (2) Acute dehydration: Code(s): E86.0 - Dehydration Status: Acute Assessment and Plan: Secondary to diarrhea (3) Hypotensive episode: Code(s): I95.9 - Hypotension, unspecified Status: Acute Assessment and Plan: Patient blood pressure 75/48 with a map of 57, patient bolused 1 L. Afterwards patient blood pressure 80/40 with a map of 53. Spoke with cardiology at [facility] in [place] will accept patient. Recommended the patient be bolused an additional 500 mL before discharge Patient accepted by Dr. Manzano hospitalist (4) Pancytopenia: Code(s): D61.818 - Other pancytopenia Status: Acute Assessment and Plan: Possibly secondary to radiology and chemo treatment Spoke with patient's oncologist Dr. Izaguirre he suggested patient be sent to [facility] so that he can monitor patient. Patient oncologist Dr. Izaguirre will be following her at [facility] (5) Hypomagnesemia: Code(s): E83.42 - Hypomagnesemia Status: Acute (6) UTI (urinary tract infection): Code(s): N39.0 - Urinary tract infection, site not specified Status: Acute (7) DM2 (diabetes mellitus, type 2): Code(s): E11.9 - Type 2 diabetes mellitus without complications Status: Acute Assessment and Plan: Patient culture shows the growth of E. coli patient prescribed Keflex 500 mg p.o. every 12 hours (8) Non-small cell lung cancer (NSCLC): Code(s): C34.90 - Malignant neoplasm of unspecified part of unspecified bronchus or lung Status: Acute Assessment and Plan: Dr. Izaguirre patient's oncologist following and managing care Patient was previously taking chemoradiation (9) Obesity, morbid, BMI 50 or higher: Code(s): E66.01 - Morbid (severe) obesity due to excess calories Status: Acute Assessment and Plan: Patient educated on healthy lifestyle (10) On home oxygen therapy: Code(s): Z99.81 - Dependence on supplemental oxygen Status: Acute Assessment and Plan: Continue (11) CHF (congestive heart failure): Code(s): I50.9 - Heart failure, unspecified Status: Acute Assessment and Plan: Patient BMP on arrival to 259 increased to 611 Chest x-ray shows mild pulmonary edema (12) COPD (chronic obstructive pulmonary disease): Code(s): J44.9 - Chronic obstructive pulmonary disease, unspecified Status: Acute Assessment and Plan: Continue home medication and supplementary oxygen Transfer Discharge Sum: Med Medications Active and Home Medications: Home Medications albuterol sulfate 2.5 mg INHALATION DAILY #75 ml 08/05/19 [Rx Confirmed 05/18/20] apixaban 5 mg tablet 5 mg PO BID 08/05/19 [History Confirmed 05/18/20] carvedilol 25 mg tablet 37.5 mg PO DAILY tablet 08/05/19 [History Confirmed 05/18/20] diltiazem HCl 240 mg capsule,extended release 24 hr 240 mg PO DAILY 08/05/19 [History Confirmed 05/18/20] magnesium oxide 400 mg PO DAILY 08/05/19 [Histor
--- NOTE | 2020-05-19 12:24 | PC.NURSE ---
report called to [facility], ICU. EMS here to transport pt. pt made safe exit form unit via stretcher accompanied by 2 paramedics.
== END 2020-05-19 12:20 | disposition short-term general hospital (02) | DRG 683 ==
LOC: CHSED 12:06 → CHS2ND 12:20
PROVIDERS: Nurse Practitioner Family; Admitting Provider Emergency Medicine; Emergency Provider Emergency Medicine; PCP Family Medicine; Visit Provider Emergency Medicine
DX: N17.9 Acute kidney failure, unspecified (principal); I48.20 Chronic atrial fibrillation, unspecified; C34.12 Malignant neoplasm of upper lobe, left bronchus or lung; C34.90 Malignant neoplasm of unspecified part of unspecified bronchus or lung; I11.0 Hypertensive heart disease with heart failure; N39.0 Urinary tract infection, site not specified; I13.0 Hypertensive heart and chronic kidney disease with heart failure and stage 1 through stage 4 chronic kidney disease, or unspecified chronic kidney disease; I73.9 Peripheral vascular disease, unspecified; D61.818 Other pancytopenia; E86.0 Dehydration; N18.9 Chronic kidney disease, unspecified; E66.01 Morbid (severe) obesity due to excess calories; I50.9 Heart failure, unspecified; I95.9 Hypotension, unspecified; J44.9 Chronic obstructive pulmonary disease, unspecified; E11.22 Type 2 diabetes mellitus with diabetic chronic kidney disease; E11.42 Type 2 diabetes mellitus with diabetic polyneuropathy; E11.51 Type 2 diabetes mellitus with diabetic peripheral angiopathy without gangrene; E83.42 Hypomagnesemia; G47.30 Sleep apnea, unspecified; F41.1 Generalized anxiety disorder; F17.210 Nicotine dependence, cigarettes, uncomplicated; Z99.81 Dependence on supplemental oxygen; Z93.2 Ileostomy status; Z96.653 Presence of artificial knee joint, bilateral; Z92.3 Personal history of irradiation
CPT/HCPCS: 36415; 36600; 71045; 80053; 82805; 83605; 83735; 83880; 84484; 85025; 85055; 85610; 85730; 87804; 93005; 94640; 96361; 96374; 99285; A9270; J1815; J1940; J2930; J3475; J7030

== ENCOUNTER 2020-05-22 18:25 | Inpatient (IN) | payer MEDICARE, OTHER, SELFPAY ==
--- NOTE | 2020-05-22 18:45 | ADMGEN ---
This patient, Kylee Brand, was admitted to 2nd Floor Room 204-2. Patient/family oriented to hospital policies and general routines including ID bracelet, bed and alarms, visiting hours, pain management, procedures, bathroom and other care routines, personal items, smoking policy, room service/diet, and visiting hours. pt here to visit, she has her cpap with her, resp called to set up Information on how to activate the Rapid Response Team has been discussed. Patient/Family are encouraged to report perceived risks to care and to ask questions if they do not understand what they are told or what they should do.
[2020-05-22 18:48] VITALS: BMI 53.5
[2020-05-22 21:00] VITALS: BP 90/37; PULSE 75; RESP 20; TEMP 35.8; O2SAT 93
[2020-05-22] MEDS: CEPHALEXIN 500 MG CAPSULE PO (21:12)
[2020-05-22] MEDS: DOCUSATE SODIUM 100 MG CAPSULE PO (21:12)
[2020-05-22] MEDS: APIXABAN 2.5 MG TABLET 5 MG PO (21:13)
[2020-05-22] MEDS: INSULIN GLARGINE (*BKC) 100 UNITS/ML 8 UNITS SUB-Q (21:13)
[2020-05-22 21:20] LABS: Glucose Point of Care 128 (65-105)
[2020-05-22] MEDS: ACETAMINOPHEN 325 MG TABLET 650 MG PO (21:22)
[2020-05-22] MEDS: ONDANSETRON HCL ODT 4 MG TABLET PO (21:23)
[2020-05-23] VITALS (8 sets, daily range): BP systolic 86–97; BP diastolic 56–63; PULSE 72–84; RESP 20–28; TEMP 35.9–36.2; O2SAT 93–95
--- NOTE | 2020-05-23 01:21 | PC.NURSE ---
Pt sitting up at the bedside and states her stomach is bothering her. VS taken and pt was told she could have TUMs tablets for her stomach. Pt said she didnt want them. Pt given white soda at this time.
--- NOTE | 2020-05-23 02:44 | PC.NURSE ---
Pt asleep in the chair and no signs of discomfort or shortness of breath noted. Pt doesnt have her oxygen or C-pap on at this time.
[2020-05-23] MEDS: SALMETEROL XINAFOATE 50 MCG DISKUS 1 PUFF INHALATION ×2 (06:19→17:43)
--- NOTE | 2020-05-23 07:09 | WPDREHABHP ---
H&P: HPI History of Present Illness Date/Time: 05/23/20 07:09 Chief complaint: REHAB Narrative: Kylee Brand is a 64 year old female that came to [facility] ED on 05/18/20 and was admitted for acute renal failure,dehydration and hypotension. During her stay patient hypotension worsened blood pressure 75/48 with a map of 57, at that time patient was transferred to [facility] to the ICU department in [facility]. Patient has return back to our hospital as a swing bed patient. Patient admitted in swing bed for rehabilitation due to decreased balance decreased mobility in severe limited function endurant and/or mobility. At this time patient only complaint is she has an upset stomach she notes that condition improved. The patient denies SOB, CP, palpitation, extremity numbness, lightheadedness, dizziness, constipation, diarrhea, chills, or fever. Patient denies having any allergies to Tylenol or hydrocodone. Review of Systems Review of Systems All systems reviewed & are unremarkable except as noted in HPI and below (10 point system review) [facility] Past Medical History Medical History Afib Benign hypertension CHF (congestive heart failure) COPD (chronic obstructive pulmonary disease) DM2 (diabetes mellitus, type 2) Generalized anxiety disorder Ileostomy present Nicotine dependence Non-small cell lung cancer (NSCLC) Obesity, morbid, BMI 50 or higher On home oxygen therapy Peripheral neuropathy PVD (peripheral vascular disease) Sleep apnea with use of continuous positive airway pressure (CPAP) Surgical History Surgical History H/O of hysterectomy with bilateral oophorectomy (~2001) History of cholecystectomy History of colectomy (~2010) for diverticulitis History of knee replacement procedure of left knee History of knee replacement procedure of right knee Family History Family History Father Lung cancer Mother Lung cancer TIA (transient ischemic attack) Social History Social History Smoking packs per day: 2 Smoking cigarettes per day: 40.0 Years smoked: 50 Smoking pack-years: 100.00 Smoking status: Former smoker Tobacco type: cigarettes Second hand tobacco smoke exposure: Yes Smoking end date: 12/16/19 Alcohol intake: never Substance use: never Substance use type: does not use Gender identity (if verbalized by the patient): Female Spiritual care concerns: No Meds Home Medications and Allergies Home Medications Medication Instructions Recorded Confirmed Type apixaban 5 mg tablet 5 mg PO BID 08/05/19 05/22/20 History carvedilol 25 mg tablet 37.5 mg PO BID tablet 08/05/19 05/22/20 History diltiazem HCl 240 mg 240 mg PO DAILY 08/05/19 05/22/20 History capsule,extended release 24 hr eszopiclone 1 mg tablet 1 mg PO .qhs #30 tablet 05/08/20 05/22/20 Rx cephalexin 500 mg capsule 500 mg PO Q12H #10 cap 05/11/20 05/22/20 Rx Xylocaine Viscous 15 ml TIDWMEAL 05/22/20 05/22/20 History allopurinol 300 mg PO DAILY 05/22/20 05/22/20 History docusate sodium [Colace] 100 mg PO BID 05/22/20 05/22/20 History fluconazole [Diflucan] 100 mg PO DAILY 05/22/20 05/22/20 History furosemide [Lasix] 40 mg PO DAILY 05/22/20 05/22/20 History gabapentin 300 mg PO BID 05/22/20 05/22/20 History insulin glargine [Lantus Solostar 8 unit SUBCUT HS 05/22/20 05/22/20 History U-100 Insulin] ipratropium-albuterol [DuoNeb] 3 ml INHALATION Q6H PRN 05/22/20 05/22/20 History ondansetron 8 mg BYMOUTH PRN PRN 05/22/20 05/22/20 History oxycodone 5 mg PO Q6H PRN 05/22/20 05/22/20 History Allergies Allergy/AdvReac Type Severity Reaction Status Date / Time acetaminophen [Vicodin] Allergy Intermediate unkown Verified 05/17/20 16:22 hydrocodone [Vicodin] Allergy Intermediate un
[2020-05-23 07:48] LABS: Hematocrit 27.8 % (35.0-42.0); Immature Platelet Fraction Pct 3.1 % (1.0-7.0); Mean Corpuscular HGB Conc 32.4 g/dL (32.0-36.0); Mean Corpuscular Hemoglobin 31.9 pg (27.0-31.0); Mean Corpuscular Volume 98.6 fL (78.0-102.0); Mean Platelet Volume 10.1 fl (9.2-11.8); Platelet Count Result 76 K/mm3 (150-420); Red Blood Count 2.82 M/mm3 (4.20-5.40); Red Cell Distribution Width 20.3 % (11.6-14.4); White Blood Count 4.3 K/mm3 (4.8-10.8)
[2020-05-23 07:59] LABS: Alanine Aminotransferase 10 U/L (14-59); Albumin Level 3.1 g/dL (3.4-5.0); Alkaline Phosphatase 121 U/L (46-116); Anion Gap 13 mmol/L (8-16); Aspartate Amino Transferase 13 U/L (15-37); Bilirubin,Total 0.8 mg/dL (0.00-1.00); Blood Urea Nitrogen 32 mg/dL (7-18); Calcium 8.8 mg/dL (8.5-10.1); Carbon Dioxide 23 mmol/L (21-32); Chloride 103 mmol/L (98-108); Estimated CRCL calculation 49 ml/min; Estimated Glomerular Filt Rate 37; Glucose 125 mg/dL (70-99); Osmolality Calculated 295 mOsm/kg (285-295); Potassium 3.8 mmol/L (3.5-5.1); Sodium 139 mmol/L (136-145); Total Protein 6.4 g/dL (6.4-8.2)
[2020-05-23 08:01] LABS: BNP 318 pg/mL (0-100)
[2020-05-23] MEDS: allopurinoL 300 MG TABLET PO (08:10)
[2020-05-23] MEDS: APIXABAN 2.5 MG TABLET 5 MG PO ×2 (08:30→20:25)
[2020-05-23] MEDS: FLUCONAZOLE 100 MG TABLET PO (08:30)
[2020-05-23] MEDS: CEPHALEXIN 500 MG CAPSULE PO ×2 (08:30→20:25)
[2020-05-23] MEDS: carvediloL 12.5 MG TABLET 25 MG PO ×2 (08:30→20:26)
[2020-05-23] MEDS: GABAPENTIN 300 MG CAPSULE PO ×2 (08:30→17:42)
[2020-05-23] MEDS: FUROSEMIDE 40 MG TABLET PO (08:30)
[2020-05-23] MEDS: LIDOCAINE HCL 2% VISC SOLN 15 ML UDC PO (08:30)
--- NOTE | 2020-05-23 15:34 | PC.NURSE ---
notified that patient's stated she takes Clariton at home for allergies. New order received for Clariton prn daily.
[2020-05-23 16:34] LABS: Glucose Point of Care 150 (65-105)
--- NOTE | 2020-05-23 17:46 | PC.NURSE ---
Up to bathroom on her own, transfers from chair to auto wheel chair, then to bathroom, takes steps on her own, no assist needed from staff, oxygen on when back in chair, denies needs, evening meds administered
[2020-05-23] MEDS: ACETAMINOPHEN 325 MG TABLET 650 MG PO (18:42)
[2020-05-23] MEDS: INSULIN GLARGINE (*BKC) 100 UNITS/ML 8 UNITS SUB-Q (20:24)
[2020-05-23 20:41] LABS: Glucose Point of Care 128 (65-105)
[2020-05-24] VITALS (7 sets, daily range): BP systolic 88–110; BP diastolic 53–57; PULSE 72–100; RESP 16–20; TEMP 35.7–36.8; O2SAT 95–98
[2020-05-24] MEDS: SALMETEROL XINAFOATE 50 MCG DISKUS 1 PUFF INHALATION ×2 (05:58→18:23)
[2020-05-24] MEDS: CEPHALEXIN 500 MG CAPSULE PO ×2 (08:15→20:18)
[2020-05-24] MEDS: allopurinoL 300 MG TABLET PO (08:15)
[2020-05-24] MEDS: FLUCONAZOLE 100 MG TABLET PO (08:15)
[2020-05-24] MEDS: APIXABAN 2.5 MG TABLET 5 MG PO ×2 (08:15→20:19)
[2020-05-24] MEDS: carvediloL 12.5 MG TABLET 25 MG PO ×2 (08:15→20:20)
[2020-05-24] MEDS: FUROSEMIDE 40 MG TABLET PO (08:15)
[2020-05-24] MEDS: GABAPENTIN 300 MG CAPSULE PO ×2 (08:15→16:40)
[2020-05-24] MEDS: LORATADINE 10 MG TABLET PO (09:36)
[2020-05-24 16:37] LABS: Glucose Point of Care 164 (65-105)
[2020-05-24] MEDS: ACETAMINOPHEN 325 MG TABLET 650 MG PO (20:18)
[2020-05-24] MEDS: INSULIN GLARGINE (*BKC) 100 UNITS/ML 8 UNITS SUB-Q (20:20)
[2020-05-24 20:31] LABS: Glucose Point of Care 147 (65-105)
[2020-05-25] MEDS: SALMETEROL XINAFOATE 50 MCG DISKUS 1 PUFF INHALATION ×2 (05:39→17:41)
[2020-05-25 08:00] VITALS: BP 90/51; PULSE 92; RESP 16; TEMP 36; O2SAT 93
[2020-05-25 08:49] VITALS: PULSE 92
[2020-05-25] MEDS: CEPHALEXIN 500 MG CAPSULE PO ×2 (08:49→21:35)
[2020-05-25] MEDS: FLUCONAZOLE 100 MG TABLET PO (08:49)
[2020-05-25] MEDS: allopurinoL 300 MG TABLET PO (08:49)
[2020-05-25] MEDS: carvediloL 12.5 MG TABLET 25 MG PO ×2 (08:49→21:36)
[2020-05-25] MEDS: LORATADINE 10 MG TABLET PO (08:49)
[2020-05-25] MEDS: FUROSEMIDE 40 MG TABLET PO (08:49)
[2020-05-25] MEDS: APIXABAN 2.5 MG TABLET 5 MG PO ×2 (08:50→21:36)
[2020-05-25] MEDS: GABAPENTIN 300 MG CAPSULE PO ×2 (08:50→17:41)
[2020-05-25 09:23] LABS: Glucose Point of Care 198 (65-105)
[2020-05-25] MEDS: oxyCODONE/ACETAMINOPHEN (*CRX) 5-325 MG TABLET 1 TABLET PO (10:28)
[2020-05-25 11:57] LABS: Glucose Point of Care 135 (65-105)
[2020-05-25 16:00] VITALS: BP 94/41; PULSE 72; RESP 18; TEMP 35.8; O2SAT 95
[2020-05-25 16:57] LABS: Glucose Point of Care 135 (65-105)
[2020-05-25 19:38] VITALS: PULSE 72; RESP 20; O2SAT 95
[2020-05-25 20:47] LABS: Glucose Point of Care 130 (65-105)
[2020-05-25 20:47] LABS: Glucose Point of Care 143 (65-105)
[2020-05-25 20:47] LABS: Glucose Point of Care 145 (65-105)
[2020-05-25 20:48] LABS: Glucose Point of Care 134 (65-105)
[2020-05-25] MEDS: INSULIN GLARGINE (*BKC) 100 UNITS/ML 8 UNITS SUB-Q (21:35)
[2020-05-25 21:36] VITALS: PULSE 82
[2020-05-25 21:40] LABS: Glucose Point of Care 139 (65-105)
[2020-05-26] VITALS: BP 98/61; PULSE 86; RESP 20; TEMP 35.7; O2SAT 93
[2020-05-26] MEDS: SALMETEROL XINAFOATE 50 MCG DISKUS 1 PUFF INHALATION (05:47)
[2020-05-26 07:34] LABS: Glucose Point of Care 139 (65-105)
[2020-05-26 08:00] VITALS: BP 96/54; PULSE 98; RESP 20; TEMP 36; O2SAT 96
[2020-05-26] MEDS: APIXABAN 2.5 MG TABLET 5 MG PO (09:31)
[2020-05-26 09:32] VITALS: PULSE 89
[2020-05-26] MEDS: carvediloL 12.5 MG TABLET 25 MG PO (09:32)
[2020-05-26] MEDS: DOCUSATE SODIUM 100 MG CAPSULE PO (09:32)
[2020-05-26] MEDS: ACETAMINOPHEN 325 MG TABLET 650 MG PO (09:32)
[2020-05-26] MEDS: FUROSEMIDE 40 MG TABLET PO (09:33)
[2020-05-26] MEDS: GABAPENTIN 300 MG CAPSULE PO (09:33)
[2020-05-26] MEDS: LORATADINE 10 MG TABLET PO (09:33)
[2020-05-26] MEDS: LIDOCAINE HCL 2% VISC SOLN 15 ML UDC PO (09:33)
[2020-05-26] MEDS: CEPHALEXIN 500 MG CAPSULE PO (09:33)
[2020-05-26] MEDS: allopurinoL 300 MG TABLET PO (09:33)
[2020-05-26 11:31] LABS: Glucose Point of Care 140 (65-105)
--- NOTE | 2020-05-26 15:38 | PM.DS ---
DS: Admitting Diagnosis Admitting Diagnosis Admitting Diagnosis: REHAB DS: Discharge Diagnosis Discharge Diagnosis (1) Hodan albicans infection: Code(s): B37.9 - Candidiasis, unspecified Status: Acute Assessment and Plan: 05/26/2020 patient received Diflucan until 05/25/2020 (2) CHF (congestive heart failure): Code(s): I50.9 - Heart failure, unspecified Status: Acute Assessment and Plan: 05/26/2020 no reports of breathing difficulty, no peripheral edema, patient is on nasal cannula at same rate she uses at home with SpO2 93% or better (3) Pancytopenia: Code(s): D61.818 - Other pancytopenia Status: Acute Assessment and Plan: 05/26/2020 this has been stable (4) Acute kidney failure: Qualifiers: Acute renal failure type: unspecified Qualified Code(s): N17.9 - Acute kidney failure, unspecified Code(s): N17.9 - Acute kidney failure, unspecified Status: Acute Assessment and Plan: 05/26/2020 renal function has improved, BUN/Cr 28/1.35 (5) DM2 (diabetes mellitus, type 2): Code(s): E11.9 - Type 2 diabetes mellitus without complications Status: Acute Assessment and Plan: 05/26/2020 primary care provider prescribed metformin which the patient never took because she read something on the Internet saying it can cause cancer, at this time she is more amicable to trying this medication but would like to follow-up with her primary care provider, patient was informed to schedule appointment within the next couple days (6) Non-small cell lung cancer (NSCLC): Code(s): C34.90 - Malignant neoplasm of unspecified part of unspecified bronchus or lung Status: Acute Assessment and Plan: 05/26/2020 patient is to restart her chemotherapy upon discharge and she has a follow-up with her oncologist (7) Obesity, morbid, BMI 50 or higher: Code(s): E66.01 - Morbid (severe) obesity due to excess calories Status: Acute Assessment and Plan: Patient educated on healthy lifestyle (8) Sleep apnea with use of continuous positive airway pressure (CPAP): Code(s): G47.30 - Sleep apnea, unspecified Status: Acute Assessment and Plan: 05/26/2020 patient has been using her CPAP while in house this stay (9) PVD (peripheral vascular disease): Code(s): I73.9 - Peripheral vascular disease, unspecified Status: Acute Assessment and Plan: 05/26/2020 patient is to follow-up with primary care provider (10) Peripheral neuropathy: Code(s): G62.9 - Polyneuropathy, unspecified Status: Acute Assessment and Plan: 05/26/2020 Continue gabapentin and follow-up with primary care provider (11) Generalized anxiety disorder: Code(s): F41.1 - Generalized anxiety disorder Status: Acute Assessment and Plan: Ativan as needed (12) Afib: Code(s): I48.91 - Unspecified atrial fibrillation Status: Acute Assessment and Plan: 05/26/2020 vital signs have been stable, no reports of elevated heart rate (13) COPD (chronic obstructive pulmonary disease): Code(s): J44.9 - Chronic obstructive pulmonary disease, unspecified Status: Acute Assessment and Plan: Continue 3 L nasal cannula with inhalers, patient to continue oxygen at home and her home meds (14) Weakness: Code(s): R53.1 - Weakness Status: Acute Assessment and Plan: 05/26/2020 reports from PT OT state patient has been doing well and meeting goals (15) Gout: Code(s): M10.9 - Gout, unspecified Status: Acute Assessment and Plan: Continue allopurinol Will periodically check renal function DS: Summary Time Spent with Patient Time attestation: Total time spent providing and/or coordinating discharge services:< 30 min Exam Const: General: cooperative, comfortable and no acute distress Nutritional Appearance:
[2020-05-26 15:40] LABS: Anion Gap 10 mmol/L (8-16); Blood Urea Nitrogen 28 mg/dL (7-18); Calcium 8.2 mg/dL (8.5-10.1); Carbon Dioxide 24 mmol/L (21-32); Chloride 102 mmol/L (98-108); Estimated CRCL calculation 53 ml/min; Estimated Glomerular Filt Rate 39; Glucose 129 mg/dL (70-99); Osmolality Calculated 289 mOsm/kg (285-295); Potassium 3.5 mmol/L (3.5-5.1); Sodium 136 mmol/L (136-145)
== END 2020-05-26 16:30 | disposition home or self-care (01) | DRG 948 ==
PROVIDERS: Nurse Practitioner; Nurse Practitioner Family; Admitting Provider Family Medicine; PCP Family Medicine; Visit Provider Family Medicine
DX: R53.1 Weakness (principal); N17.9 Acute kidney failure, unspecified; I48.20 Chronic atrial fibrillation, unspecified; C34.90 Malignant neoplasm of unspecified part of unspecified bronchus or lung; D61.818 Other pancytopenia; I11.0 Hypertensive heart disease with heart failure; I50.9 Heart failure, unspecified; J44.9 Chronic obstructive pulmonary disease, unspecified; E66.9 Obesity, unspecified; E11.42 Type 2 diabetes mellitus with diabetic polyneuropathy; E11.51 Type 2 diabetes mellitus with diabetic peripheral angiopathy without gangrene; M10.9 Gout, unspecified; B37.9 Candidiasis, unspecified; G47.30 Sleep apnea, unspecified; F41.1 Generalized anxiety disorder; Z96.653 Presence of artificial knee joint, bilateral; Z99.81 Dependence on supplemental oxygen; Z93.2 Ileostomy status; Z87.891 Personal history of nicotine dependence
CPT/HCPCS: 36415; 80048; 80053; 83880; 85027; 85055; 97110; 97161; 97165; 97530; 97535; A9270; J1815

== ENCOUNTER 2020-06-03 13:39 | Emergency (ER) | payer MEDICARE, OTHER, SELFPAY ==
[2020-06-03] VITALS (8 sets, daily range): BP systolic 106–174; BP diastolic 52–92; PULSE 73–89; RESP 16–20; TEMP 36.7; O2SAT 96–100
--- NOTE | ~2020-06-03 | XR_ITS ---
EXAMINATION: XR chest 1V portable EXAM DATE: 06/03/2020 14:30 INDICATION: Shortness of breath, increasing oxygen demand. Lung cancer. TECHNIQUE: Portable AP frontal chest x-ray was obtained. Comparison is made to prior examination from 05/19/2020. FINDINGS: Mild cardiomegaly. There is pulmonary vascular congestion. Possible mild pulmonary edema. N o confluent consolidation, pneumothorax or pleural effusion suspected. There are no osseous abnormali ties identified. IMPRESSION: Congestive changes, possible mild CHF. Reviewed, dictated and finalized at location A. ORESIST PRINTER
--- NOTE | 2020-06-03 13:57 | ECG_ITS ---
Measurements Intervals [place] Rate: 86 P: SC: 0 QRS: 50 QRSD: 91 T: 87 QT: 344 QTc: 412 Interpretive Statements ATRIAL FIBRILLATION INCOMPLETE RIGHT BUNDLE BRANCH BLOCK BORDERLINE T WAVE ABNORMALITY- ANT/HIGH LAT LEADS ABNORMAL ECG Electronically Signed On 06-03-2020 15:52:00 DATA CODER OPERATOR by Charles Garcia D.O.
--- NOTE | 2020-06-03 14:01 | ED.GENADULT ---
HPI - General Adult General Chief complaint: Shortness of Breath/Dyspnea Stated complaint: having trouble breathing Source: patient and family Mode of arrival: ambulatory Limitations: no limitations History of Present Illness HPI narrative: Kylee presented to the ER with worsening fatigue, SOB and increased oxygen demand. She has an extensive PMH most significant for non-small lung cancer being treated with radiation and chemo as well as COPD and CHF. She has has had worsening SOB and fatigue for the last 1.5 weeks, but especially over the last day or so. She is normally on 3L but has had to bump it up to 4L and more with activity. She denies any CP, N/V, syncope, fevers and chills. She admits chronic diarrhea. Related Data Home Medications Medication Instructions Recorded Confirmed apixaban 5 mg tablet 5 mg PO BID 08/05/19 06/03/20 diltiazem HCl 240 mg 240 mg PO DAILY 08/05/19 06/03/20 capsule,extended release 24 hr allopurinol 300 mg PO DAILY 05/22/20 06/03/20 furosemide [Lasix] 40 mg PO DAILY 05/22/20 06/03/20 gabapentin 300 mg PO BID 05/22/20 06/03/20 ipratropium-albuterol 3 ml INHALATION Q6H PRN 05/22/20 06/03/20 ondansetron 8 mg BYMOUTH PRN PRN 05/22/20 06/03/20 oxycodone 5 mg PO Q6H PRN 05/22/20 06/03/20 carvedilol 25 mg tablet 25 mg PO BID tablet 06/01/20 06/03/20 semaglutide 0.25 mg SUBCUT WEEKLY 06/01/20 06/03/20 Allergies Allergy/AdvReac Type Severity Reaction Status Date / Time acetaminophen [Vicodin] Allergy Intermediate unkown Verified 06/01/20 08:05 hydrocodone [Vicodin] Allergy Intermediate unknown Verified 06/01/20 08:05 Review of Systems Constitutional: Constitutional: Denies chills, Reports fatigue, Denies fever(s) and Reports weakness Eyes: Eyes: Reports no additional eye complaints ENT: Reports system reviewed and no additional complaints, except as documented Cardiovascular: Cardiovascular: Reports as per HPI Respiratory: Respiratory: Reports as per HPI Gastrointestinal: Gastrointestinal: Denies abdominal pain, Reports diarrhea, Denies nausea and Denies vomiting Genitourinary: Genitourinary: Reports no additional female genitourinary complaints Musculoskeletal: Musculoskeletal: Reports no additional musculoskeletal complaints Integumentary/Breasts: Skin/Breast: Reports system reviewed and no additional complaints, except as docu Neurologic: Reports system reviewed and no additional complaints, except as documented Psychiatric: Psychiatric: Reports no additional psychiatric complaints Endocrine: Endocrine: Reports no additional endocrine complaints Hematologic/Lymphatic: Hematologic/Lymphatic: Reports no additional hematologic/lymphatic complaints Allergic/Immunologic: Allergic/Immunologic: Reports no additional allergic/immunologic complaints [facility] Past Medical History Medical History Afib Benign hypertension CHF (congestive heart failure) COPD (chronic obstructive pulmonary disease) DM2 (diabetes mellitus, type 2) Generalized anxiety disorder Ileostomy present Nicotine dependence Non-small cell lung cancer (NSCLC) Obesity, morbid, BMI 50 or higher On home oxygen therapy Peripheral neuropathy PVD (peripheral vascular disease) Sleep apnea with use of continuous positive airway pressure (CPAP) Surgical History Surgical History H/O of hysterectomy with bilateral oophorectomy (~2001) History of cholecystectomy History of colectomy (~2010) for diverticulitis History of knee replacement procedure of left knee History of knee replacement procedure of right knee Family History Family History Father Lung cancer Mother Lung cancer TIA (transient ischemic attack) Social History Social History Smoking packs per day: 2 Smoking cigaret
[2020-06-03 14:26] LABS: Base Excess ABG -4.1 mmol/L (0-2); HCO3 ABG 21.2 mmol/L (23-29); Oxygen Content ABG 11.9 %vol (16.0-22.0); Oxygen Saturation ABG 97.1 % (95-97); Oxyhemoglobin 95.7 % (94-100); PCO2 ABG 39.5 mmHg (35-45); PO2 ABG 97.4 mmHg (75-85); Total Hemoglobin 8.7 g/dL; pH ABG 7.35 (7.35-7.45)
[2020-06-03 14:30] LABS: Device NASAL CANNULA; Modified Allen's Test Pass; Site Drawn LEFT RADIAL
[2020-06-03 14:31] LABS: Hematocrit 25.4 % (35.0-42.0); Hemoglobin 7.8 g/dL (11.7-13.8); Mean Corpuscular HGB Conc 30.7 g/dL (32.0-36.0); Mean Corpuscular Hemoglobin 32.2 pg (27.0-31.0); Mean Platelet Volume 10.3 fl (9.2-11.8); Platelet Count Result 111 K/mm3 (150-420); Red Blood Count 2.42 M/mm3 (4.20-5.40); Red Cell Distribution Width 21.5 % (11.6-14.4); White Blood Count 2.9 K/mm3 (4.8-10.8)
[2020-06-03 14:45] LABS: INR 1.4; Prothrombin Time 14.8 Seconds (9.64-11.0)
[2020-06-03 14:48] LABS: Alanine Aminotransferase 15 U/L (14-59); Albumin Level 2.7 g/dL (3.4-5.0); Alkaline Phosphatase 195 U/L (46-116); Anion Gap 8 mmol/L (8-16); Aspartate Amino Transferase 17 U/L (15-37); Bilirubin,Total 0.4 mg/dL (0.00-1.00); Blood Urea Nitrogen 24 mg/dL (7-18); Calcium 8.4 mg/dL (8.5-10.1); Carbon Dioxide 26 mmol/L (21-32); Chloride 105 mmol/L (98-108); Estimated CRCL calculation 44 ml/min; Estimated Glomerular Filt Rate 33; Glucose 191 mg/dL (70-99); Osmolality Calculated 297 mOsm/kg (285-295); Potassium 5.1 mmol/L (3.5-5.1); Sodium 139 mmol/L (136-145); Total Protein 6.1 g/dL (6.4-8.2)
[2020-06-03 14:50] LABS: Troponin I < 0.02 ng/mL (0.00-0.056)
[2020-06-03 14:51] LABS: BNP 509 pg/mL (0-100)
[2020-06-03 14:57] LABS: Influenza Control Valid (Valid); SARS-CoV-2 Ag Negative (Negative)
[2020-06-03 15:06] LABS: Band Neutrophils Percent 1 % (0-6); Basophils Percent Manual 0 % (0-1); Eosinophils Absolute Manual 0.05 K/mm3 (0.02-0.5); Eosinophils Percent Manual 2 % (1-6); Lymphocytes Absolute Manual 0.23 K/mm3 (1.1-4.5); Lymphocytes Percent Manual 8 % (18-44); Monocytes Absolute Manual 0.14 K/mm3 (0.1-0.90); Monocytes Percent Manual 5 % (3-9); Neutrophils Absolute Manual 2.46 K/mm3 (1.7-7.2); Neutrophils Percent Manual 84 % (46-73); Platelet Estimate Adequate (Adequate); Total Cells Counted 100
[2020-06-03] MEDS: IPRATROPIUM 0.5 MG/ALBUTEROL SULFATE 2.5 MG AMPUL.NEB 3 ML INHALATION (15:14)
[2020-06-03] MEDS: FUROSEMIDE INJ 40 MG/4 ML VIAL IV PUSH (15:16)
[2020-06-03] MEDS: MORPHINE SULFATE (*CRX) 4 MG/ML INJ IV PUSH (15:16)
== END 2020-06-03 16:28 | disposition home or self-care (01) ==
PROVIDERS: Emergency Provider Family Medicine; PCP Family Medicine
DX: I50.9 Heart failure, unspecified (principal); Z20.828 Contact with and (suspected) exposure to other viral communicable diseases; I48.91 Unspecified atrial fibrillation; I11.0 Hypertensive heart disease with heart failure; E11.9 Type 2 diabetes mellitus without complications; Z87.891 Personal history of nicotine dependence
CPT/HCPCS: 36415; 36600; 71045; 80053; 82805; 83880; 84484; 85025; 85610; 87426; 87804; 93005; 94640; 96374; 96375; 99283; 99284; J1940; J2270

== ENCOUNTER 2020-06-05 09:33 | Outpatient (CLI) | payer MEDICARE, OTHER, SELFPAY ==
[2020-06-05 09:59] LABS: Hematocrit 25.2 % (35.0-42.0); Hemoglobin 7.7 g/dL (11.7-13.8); Mean Corpuscular HGB Conc 30.6 g/dL (32.0-36.0); Mean Corpuscular Hemoglobin 32.2 pg (27.0-31.0); Mean Corpuscular Volume 105.4 fL (78.0-102.0); Mean Platelet Volume 10.5 fl (9.2-11.8); Platelet Count Result 138 K/mm3 (150-420); Red Blood Count 2.39 M/mm3 (4.20-5.40); Red Cell Distribution Width 21.8 % (11.6-14.4); White Blood Count 2.5 K/mm3 (4.8-10.8)
[2020-06-05 11:04] LABS: Cholesterol 93 mg/dL (0-200); HDL Direct 37 mg/dL (40-60); LDL Cholesterol Calculated 38 mg/dL (<130); Triglycerides 90 mg/dL (0-150)
--- NOTE | 2020-06-05 13:35 | PC.NURSE ---
Presents for OP blood, transfuse order for 1 unit
[2020-06-05 13:51] LABS: Folic Acid 4.8 ng/mL (8.6->20); Vitamin B12 261 pg/mL (193-986)
--- NOTE | 2020-06-05 14:06 | PC.NURSE ---
consent for blood transfusion signed by patient at [id number]
[2020-06-05] MEDS: ACETAMINOPHEN 325 MG TABLET 650 MG PO (14:15)
[2020-06-05] MEDS: SODIUM CHLORIDE 0.9% IV 250 ML 10 ML IVPB (14:16)
[2020-06-05] MEDS: diphenhydrAMINE HCl CAP 25 MG CAPSULE PO (14:16)
[2020-06-05 14:34] VITALS: BP 95/46; PULSE 80; RESP 20; TEMP 36.2; O2SAT 90
[2020-06-05 14:41] VITALS: BP 96/54; PULSE 80; RESP 20; TEMP 36.6; O2SAT 90
--- NOTE | 2020-06-05 14:42 | PC.NURSE ---
Transfusion started, denies needs at this time, comfortable in recliner chair, home oxygen on
[2020-06-05 14:56] VITALS: BP 105/45; PULSE 77; RESP 20; TEMP 36.2; O2SAT 90
[2020-06-05 15:56] VITALS: BP 118/56; PULSE 70; RESP 20; TEMP 36.1; O2SAT 94
[2020-06-05 16:56] VITALS: BP 124/74; PULSE 80; RESP 22; TEMP 36.6; O2SAT 92
[2020-06-05 18:26] LABS: Hematocrit 28.2 % (35.0-42.0); Hemoglobin 8.7 g/dL (11.7-13.8)
== END 2020-06-05 09:34 | disposition home or self-care (01) ==
LOC: CHSLAB 09:37 → CHSTREATRM 13:21
PROVIDERS: PCP Family Medicine; Visit Provider Family Medicine
DX: D64.9 Anemia, unspecified (principal); I10 Essential (primary) hypertension; J44.9 Chronic obstructive pulmonary disease, unspecified
CPT/HCPCS: 36415; 36430; 80061; 82607; 82746; 85014; 85018; 85027; 86850; 86900; 86901; 86923; A9270; J7050; P9016

== ENCOUNTER 2020-06-10 14:48 | Outpatient (NON) | payer MEDICARE, SELFPAY | END 2020-06-10 14:49 | LOC: CHSLAB 14:51 | PROVIDERS: Visit Provider Family Medicine | DX: N39.0 Urinary tract infection, site not specified (principal) | CPT/HCPCS: 87077; 87086; 87088; 87186 ==

== ENCOUNTER 2020-06-15 14:26 | Observation (INO) | payer MEDICARE, OTHER, SELFPAY ==
--- NOTE | ~2020-06-15 | XR_ITS ---
XR chest 1V portable 06/15/2020 14:59 Indication: Increasing shortness of breath. COPD exacerbation. Procedure: AP portable chest Comparison: Comparison to multiple prior studies sequentially, with oldest reviewed study dated 07/2019. Findings: Borderline heart size. Left lung clear. Persistent right basilar airspace disease unchanged from 06/03/2020. No pleural effusion or pneumothorax. Impression: 1: Persistent right basilar airspace disease may represent atelectasis or pneumonia. Reviewed, dictated and finalized at location B. OGRAMMER Impression: 1: Persistent right basilar airspace disease may represent atelectasis or pneum onia.
--- NOTE | 2020-06-15 14:45 | ECG_ITS ---
Measurements Intervals [place] Rate: 91 P: [place]: 0 QRS: 62 QRSD: 93 T: 94 QT: 367 QTc: 452 Interpretive Statements ATRIAL FIBRILLATION INCOMPLETE RIGHT BUNDLE BRANCH BLOCK BORDERLINE ST-T WAVE ABNORMALITY- HIGH LATERAL LEADS ABNORMAL ECG Electronically Signed On 06-15-2020 15:36:54 SLITTER CUT OFF OPERATOR by Charles Garcia D.O.
[2020-06-15 15:13] LABS: Hematocrit 28.7 % (35.0-42.0); Hemoglobin 8.7 g/dL (11.7-13.8); Mean Corpuscular HGB Conc 30.3 g/dL (32.0-36.0); Mean Corpuscular Hemoglobin 32.8 pg (27.0-31.0); Mean Corpuscular Volume 108.3 fL (78.0-102.0); Mean Platelet Volume 10.1 fl (9.2-11.8); Platelet Count Result 141 K/mm3 (150-420); Red Blood Count 2.65 M/mm3 (4.20-5.40); Red Cell Distribution Width 22.9 % (11.6-14.4); White Blood Count 3.1 K/mm3 (4.8-10.8)
[2020-06-15 15:25] LABS: INR 1.2; Prothrombin Time 13.6 Seconds (9.50-12.10)
--- NOTE | 2020-06-15 15:26 | PM.IMHP ---
H&P: HPI History of Present Illness Date/Time: 06/15/20 15:26 <MARIAH Cesar - Last Filed: 06/15/20 16:08> Chief complaint: extra water <MARIAH Cesar - Last Filed: 06/15/20 16:08> Narrative: Kylee Brand is a 64 year old female. was called today by Dr. Barrera for direct admit for this patient. Patient has had a 10 lb weight gain over about a week period of time. reported BMI currently 55 office report says patient is not adhering to fluid restrictions. Patient has shortness of breath however this is at patient's baseline. Patient has chronic kidney disease and is taking chemotherapy and received a transfusion last week. <MARIAH Cesar - Last Filed: 06/15/20 16:08> Review of Systems Constitutional: Constitutional: Denies fatigue, Denies fever(s) and Denies headache(s) <MARIAH Cesar - Last Filed: 06/15/20 16:08> Comments: 15 lb weight gain over the last 1-2 weeks <MARIAH Cesar - Last Filed: 06/15/20 16:08> Cardiovascular: Cardiovascular: Reports no additional cardiovascular complaints, Denies chest pain, Denies chest pain at rest and Denies chest pain with activity <MARIAH Cesar - Last Filed: 06/15/20 16:08> Respiratory: Respiratory: Reports dyspnea (patient states this is normal for her COPD) <MARIAH Cesar - Last Filed: 06/15/20 16:08> Gastrointestinal: Comments: patient states her belly has gotten bigger over the last 1-2 weeks <MARIAH Cesar - Last Filed: 06/15/20 16:08> Musculoskeletal: Comments: patient admits to being wheelchair bound, currently very limited with moving around, states she will need assistance getting from the bed to the bedside commode, has difficulty moving her legs due to the swelling <MARIAH Cesar - Last Filed: 06/15/20 16:08> [facility] Past Medical History Medical History: Medical History Afib Benign hypertension CHF (congestive heart failure) COPD (chronic obstructive pulmonary disease) DM2 (diabetes mellitus, type 2) Generalized anxiety disorder Ileostomy present Nicotine dependence Non-small cell lung cancer (NSCLC) Obesity, morbid, BMI 50 or higher On home oxygen therapy Peripheral neuropathy PVD (peripheral vascular disease) Sleep apnea with use of continuous positive airway pressure (CPAP) <MAIRAH Cesar - Last Filed: 06/15/20 16:08> Surgical History Surgical History: Surgical History H/O of hysterectomy with bilateral oophorectomy (~2001) History of cholecystectomy History of colectomy (~2010) for diverticulitis History of knee replacement procedure of left knee History of knee replacement procedure of right knee <MARIAH Cesar - Last Filed: 06/15/20 16:08> Family History Family History: Family History Father Lung cancer Mother Lung cancer TIA (transient ischemic attack) <MARIAH Cesar - Last Filed: 06/15/20 16:08> Social History Social History: Social History Smoking packs per day: 2 Smoking cigarettes per day: 40.0 Years smoked: 40 Smoking pack-years: 80.00 Smoking status: Former smoker Tobacco type: cigarettes Second hand tobacco smoke exposure: Yes Smoking end date: 12/16/19 Alcohol intake: never Substance use: never Substance use type: does not use Gender identity (if verbalized by the patient): Female Spiritual care concerns: No <MARIAH Cesar - Last Filed: 06/15/20 16:08> Meds Home Medications and Allergies Home medications: Home Medications Medication Instructions Recorded Confirmed Type apixaban 5 mg tablet 5 mg PO BID 08/05/19 06/15/20 History diltiazem HCl 240 mg 240 mg PO DAILY 08/05/19 06/15/20 Hi
[2020-06-15 15:28] LABS: BNP 544 pg/mL (0-100)
[2020-06-15 15:30] LABS: Alanine Aminotransferase 14 U/L (14-59); Albumin Level 3.2 g/dL (3.4-5.0); Alkaline Phosphatase 195 U/L (46-116); Anion Gap 8 mmol/L (8-16); Aspartate Amino Transferase 23 U/L (15-37); Bilirubin,Total 0.7 mg/dL (0.00-1.00); Blood Urea Nitrogen 35 mg/dL (7-18); Calcium 8.6 mg/dL (8.5-10.1); Carbon Dioxide 29 mmol/L (21-32); Chloride 104 mmol/L (98-108); Estimated Glomerular Filt Rate 23; Glucose 133 mg/dL (70-99); Osmolality Calculated 302 mOsm/kg (285-295); Potassium 4.6 mmol/L (3.5-5.1); Sodium 141 mmol/L (136-145); Total Protein 6.6 g/dL (6.4-8.2)
[2020-06-15 15:40] LABS: Troponin I < 0.0 ng/L (0.00-60.4)
[2020-06-15 15:57] LABS: Band Neutrophils Percent 0 % (0-6); Basophils Percent Manual 0 % (0-1); Eosinophils Absolute Manual 0.06 K/mm3 (0.02-0.5); Eosinophils Percent Manual 2 % (1-6); Lymphocytes Percent Manual 13 % (18-44); Monocytes Absolute Manual 0.21 K/mm3 (0.1-0.90); Monocytes Percent Manual 7 % (3-9); Neutrophils Absolute Manual 2.41 K/mm3 (1.7-7.2); Neutrophils Percent Manual 78 % (46-73); Platelet Estimate Adequate (Adequate); Total Cells Counted 100
[2020-06-15 15:58] LABS: Anisocytosis 2+ (NORMAL)
[2020-06-15 16:00] VITALS: PULSE 82; BMI 55.6
[2020-06-15 16:15] VITALS: O2SAT 97
[2020-06-15 16:50] VITALS: PULSE 86; RESP 22; O2SAT 97
[2020-06-15] MEDS: FUROSEMIDE INJ 40 MG/4 ML VIAL IV PUSH (17:31)
--- NOTE | 2020-06-15 19:18 | PM.EVENT ---
Event Note Event Note Event Note: I have examined the patient and reviewed the chart. I discussed the patient's care with Rebekah Joe APN and agree with his assessment and plan.
[2020-06-15 20:00] VITALS: PULSE 68
[2020-06-15] MEDS: BUDESONIDE/FORMOTEROL (*SP) 160-4.5 MCG 6 GM INH 2 PUFF INHALATION (20:34)
[2020-06-15 20:56] LABS: Add Urine Microscopic? YES; Appearance Urine Clear (Clear); Bilirubin Urine Negative (Negative); Blood Urine Negative (Negative); Color Urine Yellow (Yellow); Glucose Urine UA Negative (Negative); Ketones Urine Negative (Negative); Leukocyte Esterase Ur 1+ (Negative); Nitrate Urine Negative (Negative); Protein Urine Negative (Negative); Urobilinogen Urine 0.2 mg/dL (0.2-1.0)
[2020-06-15 21:00] LABS: RBC Urine 0-2 /hpf (0-2)
[2020-06-15 21:01] LABS: Bacteria Urine Trace /hpf; Squamous Epithelial Cell Urine Few /hpf (Few); WBC Clumps Urine Present /hpf; WBC Urine 21-30 /hpf (0-3)
[2020-06-15] MEDS: PROCHLORPERAZINE MALEATE 5 MG TABLET 10 MG PO (23:18)
[2020-06-16] VITALS (7 sets, daily range): BP systolic 115–125; BP diastolic 66–71; PULSE 73–103; RESP 18–20; TEMP 36.3–36.4; O2SAT 91–94
--- NOTE | 2020-06-16 00:07 | PC.NURSE ---
7408. in with patient. sitting up on side of bed. pt tearful and depressed. concerned cant get well enough to get radiation and chemo. wanting to know how she is going to urinate if she is on fluid restriction. explained need for fluid restriction and fluid retention. explained medication process and how it will assist with fluid restriction. pt voiced understanding. no longer tearful when this newspaper writer left room.
--- NOTE | 2020-06-16 00:20 | PC.NURSE ---
no complaint of nausea. pt laying down , asleep
--- NOTE | 2020-06-16 01:20 | PC.NURSE ---
pt awake , sitting on side of bed, requested nasal cannula oxygen applied. watching tv.
--- NOTE | 2020-06-16 02:50 | PC.NURSE ---
pt sleeping sitting up in bed, oxygen on. left undisturbed. call saucedo in reach.
--- NOTE | 2020-06-16 03:40 | PC.NURSE ---
pt awake sitting up in bed style. watching tv. requesting when she will be able to have a drink. explained fluid restriction.
--- NOTE | 2020-06-16 04:17 | PC.NURSE ---
pt sleeping sitting up in bed. easily awakened. no reuqests at this time. continues sinus rhythm on monitor
--- NOTE | 2020-06-16 05:44 | PC.NURSE ---
pt awake and watching tv, not happy with fluid restriction as ordered.
[2020-06-16 06:04] LABS: Hematocrit 26.1 % (35.0-42.0); Hemoglobin 7.8 g/dL (11.7-13.8); Mean Corpuscular HGB Conc 29.9 g/dL (32.0-36.0); Mean Corpuscular Hemoglobin 32.4 pg (27.0-31.0); Mean Corpuscular Volume 108.3 fL (78.0-102.0); Mean Platelet Volume 10.4 fl (9.2-11.8); Platelet Count Result 136 K/mm3 (150-420); Red Blood Count 2.41 M/mm3 (4.20-5.40); Red Cell Distribution Width 22.5 % (11.6-14.4); White Blood Count 2.9 K/mm3 (4.8-10.8)
--- NOTE | 2020-06-16 06:04 | PC.NURSE ---
pt sitting up in bed with cpap on , requested medication for nausea at this time.
[2020-06-16] MEDS: PROCHLORPERAZINE MALEATE 5 MG TABLET 10 MG PO (06:12)
[2020-06-16 06:24] LABS: Alanine Aminotransferase 17 U/L (14-59); Albumin Level 3.3 g/dL (3.4-5.0); Alkaline Phosphatase 193 U/L (46-116); Anion Gap 9 mmol/L (8-16); Aspartate Amino Transferase 21 U/L (15-37); Blood Urea Nitrogen 35 mg/dL (7-18); Calcium 8.3 mg/dL (8.5-10.1); Carbon Dioxide 29 mmol/L (21-32); Chloride 105 mmol/L (98-108); Estimated CRCL calculation 36 ml/min; Estimated Glomerular Filt Rate 24; Glucose 118 mg/dL (70-99); Osmolality Calculated 305 mOsm/kg (285-295); Potassium 3.7 mmol/L (3.5-5.1); Sodium 143 mmol/L (136-145); Total Protein 6.1 g/dL (6.4-8.2)
[2020-06-16 06:26] LABS: Band Neutrophils Percent 2 % (0-6); Basophils Absolute Manual 0.02 K/mm3 (0-0.1); Basophils Percent Manual 1 % (0-1); Eosinophils Absolute Manual 0.02 K/mm3 (0.02-0.5); Eosinophils Percent Manual 1 % (1-6); Lymphocytes Absolute Manual 0.55 K/mm3 (1.1-4.5); Lymphocytes Percent Manual 19 % (18-44); Monocytes Percent Manual 7 % (3-9); Neutrophils Absolute Manual 2.08 K/mm3 (1.7-7.2); Neutrophils Percent Manual 70 % (46-73); Platelet Estimate Adequate (Adequate); Total Cells Counted 100
[2020-06-16] MEDS: BUDESONIDE/FORMOTEROL (*SP) 160-4.5 MCG 6 GM INH 2 PUFF INHALATION (06:42)
--- NOTE | 2020-06-16 06:44 | PC.NURSE ---
pt concerned why spacer is being used with inhalers. explained reasoning for spacer use. pt voiced understanding.
--- NOTE | 2020-06-16 06:58 | PC.NURSE ---
Report to AMY Samuel
--- NOTE | 2020-06-16 07:00 | ECHO_ITS ---
Patient Info Name: Kylee Brand Age: 64 years : 1955 Gender: Female Ht: 64 in Wt: 324 lbs BSA: 2.67 m2 HR: 84 bpm BP: 125 / 71 mmHg Technical Quality: Good Exam Date: 06/16/2020 1:42 PM Exam Location: [facility] Patient Status: Outpatient Admit Date: 06/15/2020 Staff Ordering Physician: Niraj Gonzalez MD Studio Assistant: Sin Alejo RDCS, RT Attending Provider: Niraj Gonzalez MD Referring Physician: Carlos SORENSEN; Exam Type: CA echo doppler color flow Study Info Indications I50.9 - Heart failure, unspecified Complete two-dimensional, color flow and Doppler transthoracic echocardiogram is performed. Summary 1. Complete two-dimensional, color flow and Doppler transthoracic echocardiogram is performed. 2. Left ventricular chamber dimension is normal. 3. Left ventricular systolic function is normal, estimated at 55-60%. 4. There is mildly increased left ventricular wall thickness. 5. Left ventricular septal wall motion is abnormal with septal motion related to bundle branch block. 6. The left ventricular diastolic function is abnormal. 7. E/e' 12 is mildly elevated. 8. Probably in atrial fibrillation. 9. Right ventricular systolic function is moderate reduced with TAPSE 1.3 cm. 10. Right ventricular chamber dimension is moderately enlarged. 11. Left atrial chamber dimension is severely enlarged. 12. Right atrial chamber dimension is severely enlarged. 13. There is mild aortic valve sclerosis. 14. The mitral valve has moderately calcified annulus. 15. There is mild tricuspid valve regurgitation. 16. Mild pulmonary hypertension, estimated pulmonary arterial systolic pressure is 47 mmHg. Left Ventricle E/e' 12 is mildly elevated. Probably in atrial fibrillation. Left ventricular chamber dimension is normal. Left ventricular systolic function is normal, estimated at 55-60%. There is mildly increased left ventricular wall thickness. Left ventricular septal wall motion is abnormal with septal motion related to bundle branch block. The left ventricular diastolic function is abnormal. Right Ventricle Right ventricular systolic function is moderate reduced with TAPSE 1.3 cm. Right ventricular chamber dimension is moderately enlarged. Left Atria Left atrial chamber dimension is severely enlarged. Right Atria Right atrial chamber dimension is severely enlarged. Aortic Valve The aortic valve is not well visualized. There is mild aortic valve sclerosis. There is no aortic valve stenosis. There is no aortic valve regurgitation. Pulmonic Valve There is no pulmonic regurgitation. Mitral Valve The mitral valve has moderately calcified annulus. There is no mitral valve stenosis. There is no mitral valve regurgitation. Tricuspid Valve There is mild tricuspid valve regurgitation. Mild pulmonary hypertension, estimated pulmonary arterial systolic pressure is 47 mmHg. Pericardium/Pleural There is no pericardial effusion. Inferior Vena Cava Normal inferior vena cava with >50% collapse upon inspiration consistent with normal right atrial pressure, 5 mmHg. Aorta The aortic root size at the sinus of Valsalva is normal. Left Ventricular Outflow Tract Name Value Normal LVOT 2D
--- NOTE | 2020-06-16 08:12 | PC.NURSE ---
sitting on edge of bed, SBA up to commode for BM, oxygen on at 4 L NC
[2020-06-16 08:17] LABS: BNP 381 pg/mL (0-100)
--- NOTE | 2020-06-16 08:50 | P.DS_ITS ---
DS: Admitting Diagnosis Admitting Diagnosis Admitting Diagnosis: CHF Exacerbation DS: Discharge Diagnosis Discharge Diagnosis (1) CKD (chronic kidney disease): Code(s): N18.9 - Chronic kidney disease, unspecified Status: Acute Assessment and Plan: * Chronic * Baseline creatinine 1.30-1.40 * Currently 2.04 has improved since admission * On discharge patient will have to follow-up with neurologist (2) Anemia: Code(s): D64.9 - Anemia, unspecified Status: Acute (3) Acute exacerbation of CHF (congestive heart failure): Code(s): I50.9 - Heart failure, unspecified Status: Acute Assessment and Plan: * ECHO- from outside hospital difficult due to patient's body habitus, indicated prior to tricuspid regurgitation, aortic valve sclerosis mild, left ventricle systolic function appears to be normal. * Continue Lasix * BMP has improved since admission * Echo pending we will send results to for follow-up (4) Weakness: Code(s): R53.1 - Weakness Status: Acute Assessment and Plan: * Improved * Corrected the underlying condition (5) Pancytopenia: Code(s): D61.818 - Other pancytopenia Status: Acute Assessment and Plan: * secondary to radiology and chemo treatment * Followed by Dr. Izaguirre oncologist * Patient WBC 4.3 RBC 2.82 and platelets 76 (6) DM2 (diabetes mellitus, type 2): Code(s): E11.9 - Type 2 diabetes mellitus without complications Status: Acute Assessment and Plan: * Controlled * Continue diabetic diet * Continue home medication * Hemoglobin A1c 9.0 at outside hospital (7) Mass of lung: Code(s): R91.8 - Other nonspecific abnormal finding of lung field Status: Acute Assessment and Plan: * Patient oncologist Dr. Izaguirre will be following up on discharge * Patient was previously taking chemoradiation * Patient currently not taking chemoradiation due to recent exposure to COVID-19 (8) Obesity, morbid, BMI 50 or higher: Code(s): E66.01 - Morbid (severe) obesity due to excess calories Status: Acute Assessment and Plan: * Patient educated on healthy lifestyle (9) On home oxygen therapy: Code(s): Z99.81 - Dependence on supplemental oxygen Status: Acute Assessment and Plan: * Secondary to COPD and lung CA (10) Nicotine dependence: Code(s): F17.200 - Nicotine dependence, unspecified, uncomplicated Status: Acute Assessment and Plan: * Patient educated on smoking cessation (11) Peripheral neuropathy: Code(s): G62.9 - Polyneuropathy, unspecified Status: Acute Assessment and Plan: * Continue gabapentin (12) Generalized anxiety disorder: Code(s): F41.1 - Generalized anxiety disorder Status: Acute Assessment and Plan: * Continue home medication (13) Benign hypertension: Code(s): I10 - Essential (primary) hypertension Status: Acute Assessment and Plan: * Stable * Continue home medication * Follow-up with primary care physician (14) Afib: Code(s): I48.91 - Unspecified atrial fibrillation Status: Acute Assessment and Plan: * Controlled * Continue home medication follow-up with primary care physician (15) COPD (chronic obstructive pulmonary disease): Code(s): J44.9 - Chronic obstructive pulmonary disease, unspecified Status: Acute Assessment and Plan: * Stable * Continue home medica
--- NOTE | 2020-06-16 08:50 | PM.DS ---
DS: Admitting Diagnosis Admitting Diagnosis Admitting Diagnosis: CHF Exacerbation DS: Discharge Diagnosis Discharge Diagnosis (1) CKD (chronic kidney disease): Code(s): N18.9 - Chronic kidney disease, unspecified Status: Acute Assessment and Plan: Chronic Baseline creatinine 1.30-1.40 Currently 2.04 has improved since admission On discharge patient will have to follow-up with neurologist (2) Anemia: Code(s): D64.9 - Anemia, unspecified Status: Acute (3) Acute exacerbation of CHF (congestive heart failure): Code(s): I50.9 - Heart failure, unspecified Status: Acute Assessment and Plan: ECHO- from outside hospital difficult due to patient's body habitus, indicated prior to tricuspid regurgitation, aortic valve sclerosis mild, left ventricle systolic function appears to be normal. Continue Lasix BMP has improved since admission Echo pending we will send results to for follow-up (4) Weakness: Code(s): R53.1 - Weakness Status: Acute Assessment and Plan: Improved Corrected the underlying condition (5) Pancytopenia: Code(s): D61.818 - Other pancytopenia Status: Acute Assessment and Plan: secondary to radiology and chemo treatment Followed by Dr. Izaguirre oncologist Patient WBC 4.3 RBC 2.82 and platelets 76 (6) DM2 (diabetes mellitus, type 2): Code(s): E11.9 - Type 2 diabetes mellitus without complications Status: Acute Assessment and Plan: Controlled Continue diabetic diet Continue home medication Hemoglobin A1c 9.0 at outside hospital (7) Mass of lung: Code(s): R91.8 - Other nonspecific abnormal finding of lung field Status: Acute Assessment and Plan: Patient oncologist Dr. Izaguirre will be following up on discharge Patient was previously taking chemoradiation Patient currently not taking chemoradiation due to recent exposure to COVID-19 (8) Obesity, morbid, BMI 50 or higher: Code(s): E66.01 - Morbid (severe) obesity due to excess calories Status: Acute Assessment and Plan: Patient educated on healthy lifestyle (9) On home oxygen therapy: Code(s): Z99.81 - Dependence on supplemental oxygen Status: Acute Assessment and Plan: Secondary to COPD and lung CA (10) Nicotine dependence: Code(s): F17.200 - Nicotine dependence, unspecified, uncomplicated Status: Acute Assessment and Plan: Patient educated on smoking cessation (11) Peripheral neuropathy: Code(s): G62.9 - Polyneuropathy, unspecified Status: Acute Assessment and Plan: Continue gabapentin (12) Generalized anxiety disorder: Code(s): F41.1 - Generalized anxiety disorder Status: Acute Assessment and Plan: Continue home medication (13) Benign hypertension: Code(s): I10 - Essential (primary) hypertension Status: Acute Assessment and Plan: Stable Continue home medication Follow-up with primary care physician (14) Afib: Code(s): I48.91 - Unspecified atrial fibrillation Status: Acute Assessment and Plan: Controlled Continue home medication follow-up with primary care physician (15) COPD (chronic obstructive pulmonary disease): Code(s): J44.9 - Chronic obstructive pulmonary disease, unspecified Status: Acute Assessment and Plan: Stable Continue home medication Follow-up with primary care physician (16) UTI (urinary tract infection): Code(s): N39.0 - Urinary tract infection, site not specified Status: Acute Assessment and Plan: Patient complains of dysuria Previously diagnosed with a urinary tract infection treated with Bactrim Patient will discharge home today with Levaquin 750 mg x 7 days DS: Summary Time Spent with Patient Time attestation: Total time spent providing and/or coordinating discharge servi
[2020-06-16] MEDS: levoFLOXacin TAB 500 MG, levoFLOXacin TAB 250 MG 750 MG PO (09:31)
[2020-06-16] MEDS: POTASSIUM CHLORIDE 20 MEQ TABLET PO (09:31)
[2020-06-16] MEDS: carvediloL 12.5 MG TABLET 37.5 MG PO (09:31)
[2020-06-16] MEDS: LORATADINE 10 MG TABLET PO (09:32)
[2020-06-16] MEDS: allopurinoL 300 MG TABLET PO (09:32)
[2020-06-16] MEDS: MAGNESIUM OXIDE 400 MG TABLET PO (09:32)
[2020-06-16] MEDS: GABAPENTIN 300 MG CAPSULE PO (09:33)
[2020-06-16] MEDS: DIGOXIN TAB 125 MCG TABLET PO (09:33)
[2020-06-16] MEDS: APIXABAN 2.5 MG TABLET 5 MG PO (09:33)
[2020-06-16] MEDS: CALCIUM CARBONATE (OSCAL) 500 MG TABLET PO (09:33)
[2020-06-16] MEDS: FUROSEMIDE 40 MG TABLET PO (10:54)
--- NOTE | 2020-06-16 12:22 | PC.NURSE ---
Awaiting echo to be done before patient can discharge home
--- NOTE | 2020-06-16 14:30 | PC.NURSE ---
discharge to home via own home wheel chair, no questions on discharge instructions, verbalized understanding, no pain, no sob, feeling good on dc to home
--- NOTE | 2020-06-19 14:49 | PC.NURSE ---
Unable to contact for discharge call back.
== END 2020-06-16 14:30 | disposition home health service (06) ==
PROVIDERS: Nurse Practitioner; Nurse Practitioner Family; Admitting Provider Emergency Medicine; PCP Family Medicine; Visit Provider Emergency Medicine
DX: I13.0 Hypertensive heart and chronic kidney disease with heart failure and stage 1 through stage 4 chronic kidney disease, or unspecified chronic kidney disease (principal); I50.9 Heart failure, unspecified; N39.0 Urinary tract infection, site not specified; N18.9 Chronic kidney disease, unspecified; C34.90 Malignant neoplasm of unspecified part of unspecified bronchus or lung; D61.818 Other pancytopenia; I27.20 Pulmonary hypertension, unspecified; I35.8 Other nonrheumatic aortic valve disorders; J44.9 Chronic obstructive pulmonary disease, unspecified; E11.42 Type 2 diabetes mellitus with diabetic polyneuropathy; E11.22 Type 2 diabetes mellitus with diabetic chronic kidney disease; E11.51 Type 2 diabetes mellitus with diabetic peripheral angiopathy without gangrene; E66.9 Obesity, unspecified; G47.30 Sleep apnea, unspecified; F41.1 Generalized anxiety disorder; Z90.710 Acquired absence of both cervix and uterus; Z99.81 Dependence on supplemental oxygen; Z93.2 Ileostomy status; Z90.722 Acquired absence of ovaries, bilateral; Z96.653 Presence of artificial knee joint, bilateral; Z90.49 Acquired absence of other specified parts of digestive tract; Z87.891 Personal history of nicotine dependence
CPT/HCPCS: 36415; 71045; 80053; 81001; 83880; 84484; 85025; 85610; 93005; 93306; 96374; A9270; G0378; J1940

== ENCOUNTER 2020-06-23 14:25 | Emergency (ER) | payer MEDICARE, OTHER, SELFPAY ==
--- NOTE | ~2020-06-23 | XR_ITS ---
XR chest 1V portable DATE: 06/23/2020 15:28 INDICATION: Shortness of breath, weakness. History of COPD, congestive heart failure, atrial fibrilla tion. TECHNIQUE: Portable upright AP chest on 06/23/2020 at 1534 hours COMPARISON: 06/15/2020 portable AP chest FINDINGS: Cardiomegaly. Aortic arch calcification. There is pulmonary vascular congestion and redistr ibution, consistent with mild congestive heart failure. There is minimal infiltrate or atelectasis in the lower lung zones. Small pleural effusions are not e xcluded. No pneumothorax. Prominent thoracic scoliosis. Diffuse osteopenia. IMPRESSION: Cardiomegaly, pulmonary vascular congestion and redistribution, consistent with mild gee estive heart failure Suggestion of mild infiltrate or atelectasis the lung bases Reviewed, dictated and finalized at location A. EM ARCHITECT IMPRESSION: Cardiomegaly, pulmonary vascular congestion and redistribution, con sistent with mild congestive heart failure Suggestion of mild infiltrate or atelectasis the lung bases
[2020-06-23 14:34] VITALS: BP 90/53; PULSE 82; RESP 20; TEMP 36.1; O2SAT 99
[2020-06-23] MEDS: SODIUM CHLORIDE 0.9% IV 1,000 ML 999 ML IV CONT (15:23)
[2020-06-23 15:24] LABS: Basophils Absolute Auto 0.01 K/mm3 (0.00-0.10); Basophils Percent Auto 0.2 % (0.0-1.0); Eosinophils Absolute Auto 0.03 K/mm3 (0.02-0.50); Eosinophils Percent Auto 0.6 % (1.0-6.0); Hemoglobin 8.2 g/dL (11.7-13.8); Immature Granulocyte Absolute 0.03 K/mm3 (0.00-0.00); Immature Granulocyte Percent A 0.6 % (0.0-0.0); Lymphocytes Absolute Auto 0.54 K/mm3 (1.10-4.50); Lymphocytes Percent Auto 11.7 % (18.0-42.0); Mean Corpuscular HGB Conc 29.3 g/dL (32.0-36.0); Mean Corpuscular Hemoglobin 32.8 pg (27.0-31.0); Mean Platelet Volume 10.7 fl (9.2-11.8); Monocytes Absolute Auto 0.22 K/mm3 (0.10-0.90); Monocytes Percent Auto 4.8 % (2.0-11.0); Neutrophils Absolute Auto 3.8 K/mm3 (1.7-7.2); Neutrophils Percent Auto 82.1 % (50.0-70.0); Platelet Count Result 108 K/mm3 (150-420); Red Cell Distribution Width 22.6 % (11.6-14.4); White Blood Count 4.6 K/mm3 (4.8-10.8)
[2020-06-23 15:30] VITALS: BP 91/61; PULSE 84; RESP 20; O2SAT 98
[2020-06-23 15:32] LABS: Add Urine Microscopic? YES; Appearance Urine Clear (Clear); Bilirubin Urine Negative (Negative); Blood Urine Negative (Negative); Color Urine Yellow (Yellow); Glucose Urine UA Negative (Negative); Ketones Urine Trace (Negative); Leukocyte Esterase Ur Negative LEU/UL (Negative); Nitrate Urine Negative (Negative); Protein Urine Negative (Negative); Specific Grav Ur 1.025 (1.010-1.020); Urobilinogen Urine 0.2 mg/dL (0.2-1.0)
--- NOTE | 2020-06-23 15:32 | ED.WEAKNESS ---
HPI - Weakness General Chief complaint: Weakness Stated complaint: Ambulance Source: patient Mode of arrival: ambulatory Limitations: no limitations History of Present Illness MD Complaint: generalized weakness, focal weakness, numbness, tingling, lack of energy and difficulty walking Onset (ago): week(s) (2) Duration: constant Migration: none Severity: moderate Relieving factors: none Associated symptoms: denies other symptoms and myalgias Related Data Home Medications Medication Instructions Recorded Confirmed apixaban 5 mg tablet 5 mg PO BID 08/05/19 06/23/20 diltiazem HCl 240 mg 240 mg PO DAILY 08/05/19 06/23/20 capsule,extended release 24 hr allopurinol 300 mg PO DAILY 05/22/20 06/23/20 ipratropium-albuterol 3 ml INHALATION Q6H PRN 05/22/20 06/23/20 ondansetron 8 mg BYMOUTH PRN PRN 05/22/20 06/23/20 oxycodone 5 mg PO Q6H PRN 05/22/20 06/23/20 acetaminophen 300 mg-codeine 30 mg 1 tablet PO Q8H PRN 06/09/20 06/23/20 tablet budesonide-formoterol HFA 160 2 puff INHALATION Q12H 06/09/20 06/23/20 mcg-4.5 mcg/actuation aerosol inhaler calcium carbonate 500 mg calcium 500 mg PO BID 06/09/20 06/23/20 (1,250 mg) tablet carvedilol 25 mg tablet 37.5 mg PO BID tablet 06/09/20 06/23/20 digoxin 125 mcg (0.125 mg) tablet 125 mcg PO DAILY 06/09/20 06/23/20 furosemide 40 mg tablet 40 mg PO BID tablet 06/09/20 06/23/20 gabapentin 300 mg capsule 300 mg PO TID cap 06/09/20 06/23/20 loratadine 10 mg tablet 10 mg PO DAILY 06/09/20 06/23/20 magnesium oxide 400 mg PO DAILY 06/09/20 06/23/20 potassium chloride 20 mEq 20 meq PO BID tablet 06/09/20 06/23/20 tablet,extended release prochlorperazine maleate 10 mg 10 mg PO Q6H PRN 06/09/20 06/23/20 tablet metformin 500 mg PO BID 06/23/20 06/23/20 semaglutide [Ozempic] 0.25 mg SUBCUT WEEKLY 06/23/20 06/23/20 Allergies Allergy/AdvReac Type Severity Reaction Status Date / Time hydrocodone [Vicodin] Allergy Intermediate unknown Verified 06/23/20 14:46 Review of Systems Review of Systems: All systems reviewed & are unremarkable except as noted in HPI and below Constitutional: Constitutional: Reports as per HPI, Reports fatigue and Reports weakness Eyes: Eyes: Reports no additional eye complaints ENT: Reports system reviewed and no additional complaints, except as documented Cardiovascular: Cardiovascular: Reports no additional cardiovascular complaints Respiratory: Respiratory: Reports no additional respiratory complaints Gastrointestinal: Gastrointestinal: Reports no additional gastrointestinal complaints Genitourinary: Genitourinary: Reports no additional female genitourinary complaints Musculoskeletal: Comments: shaky all over and very weak, unable to stand up Integumentary/Breasts: Comments: skin very dry- worse than normal Neurologic: Reports as per HPI, Denies confusion, Denies vertigo, Denies dizziness, Denies syncope, Denies headache(s), Denies focal weakness, Denies numbness and Reports weakness Psychiatric: Psychiatric: Reports no additional psychiatric complaints Endocrine: Endocrine: Reports no additional endocrine complaints Hematologic/Lymphatic: Hematologic/Lymphatic: Reports no additional hematologic/lymphatic complaints Allergic/Immunologic: Allergic/Immunologic: Reports no additional allergic/immunologic complaints PMFSH Past Medical History Medical History Afib Benign hypertension CHF (congestive heart failure) COPD (chronic obstructive pulmonary disease) DM2 (diabetes mellitus, type 2) Generalized anxiety disorder Ileostomy present Nicotine dependence Non-small cell lung cancer (NSCLC) Obesity, morbid, BMI 50 or higher On home oxygen therapy Peripheral neuropathy PVD (peripheral vascular disease) Sleep apnea with use of continuous positive airway pressure (CPAP) Surgical History Surgical History H/O of hysterectomy
[2020-06-23 15:41] LABS: RBC Urine None seen /hpf (0-2)
[2020-06-23 15:42] LABS: Amorphous Sediment Urine Moderate; Squamous Epithelial Cell Urine Occasional /hpf (Few); WBC Urine None seen /hpf (0-3)
[2020-06-23 15:45] LABS: Alanine Aminotransferase 12 U/L (14-59); Alkaline Phosphatase 153 U/L (46-116); Anion Gap 10 mmol/L (8-16); Aspartate Amino Transferase 12 U/L (15-37); Bilirubin,Total 0.6 mg/dL (0.00-1.00); Blood Urea Nitrogen 64 mg/dL (7-18); Calcium 8.6 mg/dL (8.5-10.1); Carbon Dioxide 30 mmol/L (21-32); Chloride 101 mmol/L (98-108); Estimated CRCL calculation 16 ml/min; Estimated Glomerular Filt Rate 10; Glucose 123 mg/dL (70-99); Osmolality Calculated 311 mOsm/kg (285-295); Potassium 5.1 mmol/L (3.5-5.1); Sodium 141 mmol/L (136-145); Total Protein 6.4 g/dL (6.4-8.2)
[2020-06-23 16:30] VITALS: BP 86/48; PULSE 73; RESP 20; O2SAT 98
--- NOTE | 2020-06-23 16:52 | PC.NURSE ---
[address] Lewis to call ER
[2020-06-23 17:25] LABS: Magnesium 1.7 mg/dL (1.8-2.4)
[2020-06-23 17:30] VITALS: BP 160/55; PULSE 73; RESP 20; O2SAT 96
[2020-06-23 17:34] LABS: BNP 362 pg/mL (0-100)
--- NOTE | 2020-06-23 18:38 | PC.NURSE ---
up to bedside commode at 1835
== END 2020-06-23 18:59 | disposition short-term general hospital (02) ==
PROVIDERS: Emergency Provider Emergency Medicine; PCP Family Medicine
DX: N17.9 Acute kidney failure, unspecified (principal); I50.9 Heart failure, unspecified; Z87.891 Personal history of nicotine dependence
CPT/HCPCS: 36415; 71045; 80053; 81001; 83735; 83880; 85025; 96360; 99285; J7030

== ENCOUNTER 2020-06-23 20:33 | Inpatient (IN) | payer MEDICARE, OTHER, SELFPAY ==
--- NOTE | ~2020-06-23 | XR_ITS ---
EXAMINATION: XR chest 1V portable DATE: 06/30/2020 05:49 INDICATION: Congestive heart failure. TECHNIQUE: A single frontal view of the chest was obtained. COMPARISON: Chest single view 06/29/2020, chest CT 03/03/2020 FINDINGS: There are patchy airspace opacities in all lung zones bilaterally, worst in right lower wale g zone. No pleural effusion or pneumothorax. Cardiomegaly is noted. A left internal jugular central v enous catheter is seen with tip at the superior cavoatrial junction. IMPRESSION: 1. Worsened diffuse lung disease, consistent with pulmonary edema versus pneumonia. 2. Cardiomegaly. Reviewed, dictated and finalized at location A. ROAD POLICE OFFICER IMPRESSION: 1. Worsened diffuse lung disease, consistent with pulmonary edema versus pneumo elliot. 2. Cardiomegaly.
--- NOTE | ~2020-06-23 | XR_ITS ---
EXAMINATION: XR chest port-a-cath/central INDICATION: Cole catheter insertion TECHNIQUE: Portable AP chest obtained on two radiographs COMPARISON: 06/23/2020 FINDINGS: A large bore right internal jugular Cole catheter ends with its tip in the distal superi or vena cava. No pneumothorax is identified. No pleural effusion is identified. There is stable cardi omegaly. A mild diffuse interstitial pattern persists without significant change. There are minimal a irspace opacities of the lung bases. IMPRESSION: 1. Right internal jugular catheter insertion without pneumothorax. 2. Cardiomegaly with mild pulmonary edema. 3. Bibasilar airspace opacities, consistent with atelectasis versus pneumonia. Reviewed, dictated and finalized at location A. ING AND UNLOADING SUPERVISOR
--- NOTE | ~2020-06-23 | XR_ITS ---
EXAMINATION: XR chest 1V portable DATE: 06/28/2020 06:02 INDICATION: COVID TECHNIQUE: frontal view of the chest was obtained. COMPARISON: Chest radiograph dated 06/27/2020 FINDINGS: Right internal jugular central venous catheter with distal tip at the midsuperior vena cava. No signi ficant interval change in airspace opacities in the left mid and right lower lung zone. Interval deve lopment of new subtle groundglass opacity in the right midlung zone. No pneumothorax or definitive pl eural effusion. Cardiomegaly. IMPRESSION: 1. Bilateral airspace opacities with slight increase in the right midlung zone which could represent pneumonia and/or atelectasis. Reviewed, dictated and finalized at location A. RIFUGAL SPINNER
--- NOTE | ~2020-06-23 | XR_ITS ---
EXAMINATION: XR chest ET placement DATE: 07/03/2020 05:50 INDICATION: Intubation. COVID-19 pneumonia. Lung cancer. TECHNIQUE: A single frontal view of the chest was obtained. COMPARISON: Chest single view 07/02/2020 FINDINGS: There are airspace and interstitial opacities throughout the lungs bilaterally, right worse than left. No pleural effusion or pneumothorax. Cardiomegaly is noted. The endotracheal tube tip is 4.7 cm above the windy. The nasogastric tube tip is beyond the inferior margin of the radiograph, bu t at least to the stomach. A right internal jugular central venous catheter is seen with tip at the s uperior cavoatrial junction. A left internal jugular central venous catheter is seen with tip at the superior cavoatrial junction. IMPRESSION: 1. Worsened diffuse lung disease, consistent with pneumonia versus pulmonary edema. 2. Cardiomegaly. Reviewed, dictated and finalized at location A. T RAIL OPERATOR IMPRESSION: 1. Worsened diffuse lung disease, consistent with pneumonia versus pulmonary ed eyad. 2. Cardiomegaly.
--- NOTE | ~2020-06-23 | XR_ITS ---
EXAMINATION: XR chest 1V portable DATE: 07/04/2020 06:33 INDICATION: COVID-19 pneumonia. Acute respiratory failure. Lung cancer. TECHNIQUE: A single frontal view of the chest was obtained. COMPARISON: Chest single view 07/03/2020, chest CT 03/03/2020 FINDINGS: There are airspace opacities in all lung zones bilaterally. There is a small right pleural effusion. No pneumothorax. Cardiomegaly is noted. The endotracheal tube tip is 2.7 cm above the anival a. The nasogastric tube tip is beyond the inferior margin of the radiograph, but at least to the stom ach. A right internal jugular central venous catheter is seen with tip at the superior cavoatrial rosemarie ction. IMPRESSION: 1. Diffuse lung disease with improvement at left lung base, consistent with pneumonia versus pulmonar y edema. 2. Small right pleural effusion. 3. Cardiomegaly. Reviewed, dictated and finalized at location A. R IMPRESSION: 1. Diffuse lung disease with improvement at left lung base, consistent with pne umonia versus pulmonary edema. 2. Small right pleural effusion. 3. Cardiomegaly.
--- NOTE | ~2020-06-23 | XR_ITS ---
XR chest 1V portable 06/29/2020 07:54 Indication: Covid Procedure: AP portable chest Comparison: Comparison to multiple prior studies sequentially, with oldest reviewed study dated 05/19. Findings: Cardiomegaly. Mild pulmonary vascular congestion. Focal consolidation right lower lung zone . Interval removal of central line. No pneumothorax. No pleural effusion. Impression: 1: Focal consolidation right lower lung zone which may represent atelectasis or pneumonia. 2: Cardiomegaly. Reviewed, dictated and finalized at location A. ET CHARGING MACHINE OPERATOR Impression: 1: Focal consolidation right lower lung zone which may represent atelectasis or pneumonia. 2: Cardiomegaly.
--- NOTE | ~2020-06-23 | XR_ITS ---
XR chest port-a-cath/central DATE: 07/03/2020 13:48 INDICATION: Central line insertion TECHNIQUE: Portable AP chest on 07/03/2020 at 1341 hours COMPARISON: 07/03/2020 portable AP chest at 0512 hours FINDINGS: Interval placement of a left internal jugular central venous catheter, the catheter tip orville arently at the superior vena cava. Right internal jugular central venous catheter is noted in the upper right atrium. ET tube tip 3.5 cm above windy. NG tube noted passing toward the stomach, the distal portion not included in this examination. Extensive patchy bilateral pulmonary infiltrates are noted, right greater than left, increased on the left since 0512 hours today. Cardiomegaly. Aortic calcification. Diffuse osteopenia. IMPRESSION: Placement of left internal jugular central venous catheter in superior vena cava; no pneu mothorax Extensive bilateral pulmonary infiltrates, right greater than left, increased on the left since earli er today Reviewed, dictated and finalized at Location A. Reviewed, dictated and finalized at location B. ANY DANCER IMPRESSION: Placement of left internal jugular central venous catheter in super ior vena cava; no pneumothorax Extensive bilateral pulmonary infiltrates, right greater than left, increased o n the left since earlier today
--- NOTE | ~2020-06-23 | US_ITS ---
EXAMINATION: US venous doppler [facility] DATE: 06/27/2020 15:01 INDICATION: Lower limb pain and swelling TECHNIQUE: Grayscale ultrasound images without and with compression and Doppler ultrasound images of the bilateral lower extremity veins were obtained. COMPARISON: None. FINDINGS: The visualized portions of right common femoral vein, profunda (deep) femoral vein, femoral vein, pop liteal vein, posterior tibial veins, peroneal veins, gastrocnemius vein and greater saphenous vein ou tflow are patent. The visualized portions of left common femoral vein, profunda femoral vein, femoral vein, popliteal v ein, posterior tibial veins, peroneal veins, gastrocnemius vein and greater saphenous vein outflow ar e patent. IMPRESSION: 1. No deep venous thrombosis in either lower limb. Reviewed, dictated and finalized at location A. EE ATTENDANT
--- NOTE | ~2020-06-23 | US_ITS ---
EXAMINATION: US renal BI DATE: 06/24/2020 09:01 INDICATION: Acute on chronic renal failure. TECHNIQUE: Multiple ultrasound grayscale images of the kidneys were obtained. COMPARISON: CT abdomen and pelvis 10/03/2018 FINDINGS: The right kidney measures 11.9 x 5.1 x 5.9 cm. The left kidney measures 9.5 x 5.8 x 5.8 cm. The kidne ys demonstrate normal parenchymal echogenicity. There is cortical thinning of the kidneys. There are cysts in right kidney measuring up to 2.6 cm. There is no hydronephrosis. The bladder is decompressed . There is a small volume of ascites in left upper quadrant. IMPRESSION: 1. Mild atrophy of the kidneys. No hydronephrosis. 2. Small volume of ascites. Reviewed, dictated and finalized at location B. FARMER
--- NOTE | ~2020-06-23 | XR_ITS ---
EXAMINATION: XR chest port-a-cath/central DATE: 06/29/2020 11:47 INDICATION: Verify left Cole catheter placement TECHNIQUE: frontal view of the chest was obtained. COMPARISON: Chest radiograph dated 06/29/2020 FINDINGS: Large-bore left internal jugular central venous catheter with distal tip at the superior cavoatrial j unction. Opacities at the lower lung zone and in the left midlung zone projecting over the hilum. No pleural effusion or pneumothorax. Cardiomegaly. IMPRESSION: 1. Airspace opacities in the left mid and right lower lung zones which could represent atelectasis an d/or pneumonia. The opacity at the left hilum could also represent metastatic disease with enlarged m ediastinal lymph node at this location on prior CT. 2. Cardiomegaly. Reviewed, dictated and finalized at location B. E SETTER METAL OPTICAL FRAMES IMPRESSION: 1. Airspace opacities in the left mid and right lower lung zones which could re present atelectasis and/or pneumonia. The opacity at the left hilum could also represent metastatic disease with enlarged mediastinal lymph node at this locat ion on prior CT. 2. Cardiomegaly.
--- NOTE | ~2020-06-23 | XR_ITS ---
EXAMINATION: XR chest 1V portable DATE: 07/02/2020 08:58 INDICATION: COVID-19 pneumonia. Lung cancer. TECHNIQUE: A single frontal view of the chest was obtained. COMPARISON: Chest single view 06/30/2020 FINDINGS: There is a diffuse interstitial pattern in the lungs. There are patchy airspace opacities i n all lung zones with a lower lung predominance. No pleural effusion or pneumothorax. Cardiomegaly is noted. There is a prominent left paracardial fat pad. IMPRESSION: 1. Diffuse lung disease with slight worsening at left lung base, likely a combination of pneumonia an d pulmonary edema. 2. Cardiomegaly. Reviewed, dictated and finalized at location A. E EXTRA IMPRESSION: 1. Diffuse lung disease with slight worsening at left lung base, likely a combi nation of pneumonia and pulmonary edema. 2. Cardiomegaly.
--- NOTE | ~2020-06-23 | XR_ITS ---
EXAMINATION: XR abdomen NG/feed tube insert DATE: 07/03/2020 05:50 INDICATION: Nasogastric tube placement. TECHNIQUE: A supine view of the abdomen was obtained. COMPARISON: None. FINDINGS: The lower abdomen and right lateral aspect of the abdomen are excluded. The nasogastric tub e tip is in the stomach. IMPRESSION: 1. Nasogastric tube tip in the stomach. Reviewed, dictated and finalized at location A. PUDDLER
--- NOTE | 2020-06-23 20:26 | ADMGEN ---
This patient, Kylee Brand, was admitted to Medical Room 247-. Patient/family oriented to hospital policies and general routines including ID bracelet, bed and alarms, visiting hours, pain management, procedures, bathroom and other care routines, personal items, smoking policy, room service/diet, and visiting hours. Information on how to activate the Rapid Response Team has been discussed. Patient/Family are encouraged to report perceived risks to care and to ask questions if they do not understand what they are told or what they should do.
[2020-06-23 20:33] VITALS: BP 103/46; PULSE 74; RESP 16; TEMP 36.6; O2SAT 97; BMI 56.5
--- NOTE | 2020-06-23 20:37 | PM.IMHP ---
H&P: HPI History of Present Illness Date/Time: 06/23/20 20:37 Chief complaint: Acute Renal Failure, CHF Narrative: Kylee Brand is a 65 year old female renal failure in congestive heart failure. Patient recently was diagnosed with urinary tract infection was started on Levaquin. The patient had been admitted to [facility] on 06/15/2020 she had been a direct admit from the doctor's office. She had a 10 lb weight gain over week. At that time. Is reported that she is not adhering to her fluid restrictions. Patient also is receiving chemotherapy through the [facility] by Dr. Izaguirre for non small cell lung cancer. She has gotten blood transfusions in the past. Patient's baseline creatinine is typically around 1.3 and 1.4. Her creatinine was 2.04 lb discharged from [facility] on 06/16 on discharge she was supposed to follow with a neurologist. She did have an echo from outside facility but it was very difficult due to her habitus. She has had some prior tricuspid regurgitation aortic valve sclerosis mild left ventricle systolic function appears to be normal. She had been taking Lasix and her echo was pending. The patient had been started on Levaquin for the UTI. She also had Bactrim as well. The patient does wear oxygen at home approximately 5 L per nasal cannula. The patient did see her primary care doctor today. However it looks like the patient then went to [facility] after that. Of breath and was very weak and lacking energy. She was having difficulty walking. Patient's legs and abdomen are very edematous. 4.50 today with a GFR 16. Glucose 123 calculated osmolarity 311 magnesium 1.7. BNP was only 363, H&H is 8.2 and 28.0 which appears to be her baseline. Arch calcification pulmonary vascular congestion and redistribution consistent with mild congestive heart failure suggestive of mild infiltrate or atelectasis in the lung bases. The patient was a direct admit from [facility] per Dr. Lewis into inpatient status on the date of service is 06/23/2020 Review of Systems Review of Systems: All systems reviewed & are unremarkable except as noted in HPI and below Constitutional: Constitutional: Reports as per HPI and Reports no additional constitutional complaints Eyes: Eyes: Reports as per HPI and Reports no additional eye complaints ENT: Reports system reviewed and no additional complaints, except as documented and Reports Normal hearing present Cardiovascular: Cardiovascular: Reports no additional cardiovascular complaints Respiratory: Respiratory: Reports no additional respiratory complaints and Reports no additional respiratory complaints Gastrointestinal: Gastrointestinal: Reports as per HPI and Reports no additional gastrointestinal complaints Musculoskeletal: Musculoskeletal: Reports no additional musculoskeletal complaints Integumentary/Breasts: Skin/Breast: Reports system reviewed and no additional complaints, except as docu and Reports as per HPI Neurologic: Reports system reviewed and no additional complaints, except as documented, Reports as per HPI and Reports Normal hearing present Psychiatric: Psychiatric: Reports no additional psychiatric complaints and Reports as per HPI Endocrine: Endocrine: Reports no additional endocrine complaints Hematologic/Lymphatic: Hematologic/Lymphatic: Reports no additional hematologic/lymphatic complaints Allergic/Immunologic: Allergic/Immunologic: Reports no additional allergic/immunologic complaints [facility] Past Medical History Medical History (Updated 06/23/20 @ 21:00 by Kinga Moreno NP) Afib Benign hypertension CHF (congestive heart failure) COPD (chronic obstructive pulmonary disease) DM2 (diabetes mellitus, type 2) Generalized anxiety disorder Ileostomy present Nicotine dependence Non-small cell lung cancer (NSCLC) Obesity, morbid, BMI 50 or higher On home oxygen therapy Peripheral neuropathy PVD (peripheral vascular disease) Sleep
[2020-06-23 20:47] VITALS: BP 126/82; PULSE 82; RESP 16; TEMP 36.6; O2SAT 98
[2020-06-23 20:49] LABS: Basophils Percent Auto 0.2 % (0.2-1.2); Eosinophils Percent Auto 0.6 % (0-4.4); Hematocrit 26.7 % (37.0-47.0); Hemoglobin 8.3 g/dL (12.0-15.0); Immature Granulocyte Absolute 0.02 K/mm3 (0.00-0.031); Immature Granulocyte Percent A 0.4 % (0-0.5); Lymphocytes Absolute Auto 0.43 K/mm3 (0.9-3.2); Lymphocytes Percent Auto 8.9 % (18.3-44.2); Mean Corpuscular HGB Conc 31.1 g/dl (32-36); Mean Corpuscular Hemoglobin 33.6 pg (26-34); Mean Corpuscular Volume 108.1 fl (80-100); Mean Platelet Volume 9.9 fl (7.4-10.4); Monocytes Absolute Auto 0.2 K/mm3 (0.1-0.6); Monocytes Percent Auto 3.5 % (2.6-8.5); Neutrophils Absolute Auto 4.2 K/mm3 (1.3-6.7); Neutrophils Percent Auto 86.4 % (45.5-73.1); Platelet Count Result 96 k/mm3 (150-375); Red Blood Count 2.47 M/mm3 (4.2-5.4); Red Cell Distribution Width 22.4 % (11.5-14.5); White Blood Count 4.8 K/mm3 (4.5-10.0)
[2020-06-23 21:00] LABS: Anion Gap 11 mmol/L (8-16); Blood Urea Nitrogen 63 mg/dL (7-17); Calcium 8.3 mg/dL (8.4-10.2); Carbon Dioxide 28 mmol/L (22-30); Chloride 97 mmol/L (98-107); Estimated Glomerular Filt Rate 11; Glucose 132 mg/dL (65-105); Phosphorus 6.5 mg/dL (2.5-4.5); Potassium 4.9 mmol/L (3.4-5.0); Sodium 136 mmol/L (137-145)
[2020-06-23 21:45] VITALS: O2SAT 90
[2020-06-23] MEDS: MAGNESIUM SULF 2 GM/WATER 50ML 2 GM/50 ML BAG IVPB (21:50)
[2020-06-23] MEDS: WATER FOR IRRIGATION, STERILE 1,000 ML BOTTLE 1000 ML (21:51)
[2020-06-23 22:10] VITALS: PULSE 83; O2SAT 90
[2020-06-23 22:32] VITALS: PULSE 74
[2020-06-24] VITALS (18 sets, daily range): BP systolic 100–138; BP diastolic 29–108; PULSE 62–104; RESP 18–22; TEMP 35.8–36.9; O2SAT 92–98
[2020-06-24] MEDS: oxyCODONE HCL (*CRX) 5 MG TAB IR PO (01:59)
[2020-06-24 05:56] LABS: Basophils Percent Auto 0.2 % (0.2-1.2); Eosinophils Percent Auto 0.7 % (0-4.4); Hematocrit 26.3 % (37.0-47.0); Immature Granulocyte Absolute 0.02 K/mm3 (0.00-0.031); Immature Granulocyte Percent A 0.5 % (0-0.5); Lymphocytes Absolute Auto 0.44 K/mm3 (0.9-3.2); Lymphocytes Percent Auto 10.4 % (18.3-44.2); Mean Corpuscular HGB Conc 30.4 g/dl (32-36); Mean Corpuscular Hemoglobin 33.6 pg (26-34); Mean Corpuscular Volume 110.5 fl (80-100); Monocytes Absolute Auto 0.2 K/mm3 (0.1-0.6); Monocytes Percent Auto 4.5 % (2.6-8.5); Neutrophils Absolute Auto 3.6 K/mm3 (1.3-6.7); Neutrophils Percent Auto 83.7 % (45.5-73.1); Nucleated Red Blood Cells Perc 0.5 % (0.0-0.2); Platelet Count Result 97 k/mm3 (150-375); Red Blood Count 2.38 M/mm3 (4.2-5.4); Red Cell Distribution Width 22.2 % (11.5-14.5); White Blood Count 4.2 K/mm3 (4.5-10.0)
[2020-06-24 06:04] LABS: CRP 2.4 mg/dL (<1.0); Magnesium 1.9 mg/dL (1.6-2.3)
[2020-06-24 08:39] LABS: Free T4 Free Thyroxine Reflex 1.15 ng/dL (0.78-2.19)
[2020-06-24 08:47] LABS: Anion Gap 11 mmol/L (8-16); Blood Urea Nitrogen 68 mg/dL (7-17); Calcium 8.2 mg/dL (8.4-10.2); Carbon Dioxide 27 mmol/L (22-30); Chloride 98 mmol/L (98-107); Estimated CRCL calculation 17 ml/min; Estimated Glomerular Filt Rate 10; Glucose 126 mg/dL (65-105); Potassium 4.8 mmol/L (3.4-5.0); Sodium 136 mmol/L (137-145)
[2020-06-24 08:49] LABS: Glucose Point of Care 138 (65-105)
[2020-06-24] MEDS: TOLNAFTATE 1% POWDER 45 GM BTL 1 APPLIC TOPICAL ×2 (09:16→20:53)
[2020-06-24] MEDS: carvediloL 12.5 MG TABLET 37.5 MG PO ×2 (09:16→20:50)
[2020-06-24] MEDS: CALCIUM CARBONATE (OSCAL) 500 MG TABLET PO ×2 (09:17→17:17)
[2020-06-24] MEDS: metOLazone 2.5 MG TABLET BY MOUTH (09:17)
[2020-06-24] MEDS: LORATADINE 10 MG TABLET PO (09:17)
[2020-06-24] MEDS: GABAPENTIN 300 MG CAPSULE PO ×3 (09:17→17:17)
[2020-06-24] MEDS: DIGOXIN TAB 125 MCG TABLET PO (09:17)
[2020-06-24] MEDS: allopurinoL 300 MG TABLET PO (09:17)
[2020-06-24] MEDS: MAGNESIUM OXIDE 400 MG TABLET PO (09:17)
[2020-06-24] MEDS: FUROSEMIDE INJ 40 MG/4 ML VIAL IV PUSH ×2 (09:18→17:17)
[2020-06-24] MEDS: POTASSIUM CHLORIDE 20 MEQ TABLET.ER PO ×2 (09:18→17:17)
[2020-06-24] MEDS: APIXABAN 5 MG TABLET PO ×2 (09:18→17:17)
--- NOTE | 2020-06-24 10:17 | PCRCNOTE ---
Window of time for administration has passed. See next scheduled administration.
[2020-06-24 11:47] LABS: Glucose Point of Care 142 (65-105)
[2020-06-24 11:55] LABS: Total Triiodothyronine (T3) 0.94 NG/ML (0.97-1.69)
--- NOTE | 2020-06-24 13:11 | P.PNIM_ITS ---
Progress Note: A&P Assessment and Plan (1) CHF (congestive heart failure): Qualifiers: Heart failure chronicity: acute on chronic Heart failure type: unspecified Qualified Code(s): I50.9 - Heart failure, unspecified Code(s): I50.9 - Heart failure, unspecified Status: Inactive Assessment and Plan: Secondary to increased sodium intake and noncompliance with fluid restriction. We discussed appropriate dietary restrictions. Echo on 06/16/20 showed EF of 55- 60% with abnormal LV diastolic function. * Continue with IV lasix at this time as patient is quite fluid overloaded. Cautious use with diuresis given patients acute on chronic kidney disease. * Continue coreg and metolazone * Appreciate cardiology and nephrology input. * Daily weights, heart healthy diet, and strict I&O monitoring. Elevate extremities. (2) CKD (chronic kidney disease): Code(s): N18.9 - Chronic kidney disease, unspecified Status: Acute Assessment and Plan: Baseline appears to be quite variable, however recently creatinine was around 2.1. Upon presentation, creatinine was 4.58. Renal ultrasound showed mild atrophy of the kidneys with no hydronephrosis. * Nephrology has been consulted and their input is appreciated. * Continue with diuresis at this time monitoring renal function closely. (3) DM2 (diabetes mellitus, type 2): Code(s): E11.9 - Type 2 diabetes mellitus without complications Status: Acute Assessment and Plan: A1c is 6.0. blood sugars have been generally well controlled. * Continue Accu-Cheks ACHS, SSI, and hypoglycemia protocol * metformin is on hold * patient's weekly injectable Ozempic is non formulary. (4) Non-small cell lung cancer (NSCLC): Code(s): C34.90 - Malignant neoplasm of unspecified part of unspecified bronchus or lung Status: Acute Assessment and Plan: The patient is current with Dr. Izaguirre at [facility]. She has expressed that she may be seeking a new oncologist, however she declined to speak with the oncologist here. * She will need outpatient follow-up. (5) Hypomagnesemia: Code(s): E83.42 - Hypomagnesemia Status: Acute Assessment and Plan: Magnesium is 1.9 today. * Continue with oral magnesium supplement (6) On home oxygen therapy: Code(s): Z99.81 - Dependence on supplemental oxygen Status: Acute Assessment and Plan: She is on 5 L per nasal cannula at home. Suspect chronic respiratory failure is secondary to COPD, MARIANA, and CHF. She is currently maintaining adequate oxygen saturations on her typical 5 L. * Continue supplemental O2 as needed with goal saturation 90% or above. Wean to goal. (7) Afib: Code(s): I48.91 - Unspecified atrial fibrillation Status: Chronic Assessment and Plan: Rate is controlled. * The patient is Coreg, digoxin, and diltiazem * Continue eliquis * Continue monitoring on telemetry until cardiology evaluation. (8) COPD (chronic obstructive pulmonary disease): Code(s): J44.9 - Chronic obstructive pulmonary disease, unspecified Status: Acute Assessment and Plan: Chronic and stable. Does not appear to be in acute exacerbation. * Continue supplemental O2 as above. * Continue bronchodilators (9) Benign hypertension: Code(s): I10 - Essential (primary) hypertension Status: Acute Assessment and Plan: blood pressure evaluated today and sta
--- NOTE | 2020-06-24 13:11 | PM.IMPN ---
Progress Note: A&P Assessment and Plan (1) CHF (congestive heart failure): Qualifiers: Heart failure chronicity: acute on chronic Heart failure type: unspecified Qualified Code(s): I50.9 - Heart failure, unspecified Code(s): I50.9 - Heart failure, unspecified Status: Inactive Assessment and Plan: Secondary to increased sodium intake and noncompliance with fluid restriction. We discussed appropriate dietary restrictions. Echo on 06/16/20 showed EF of 55-60% with abnormal LV diastolic function. Continue with IV lasix at this time as patient is quite fluid overloaded. Cautious use with diuresis given patients acute on chronic kidney disease. Continue coreg and metolazone Appreciate cardiology and nephrology input. Daily weights, heart healthy diet, and strict I&O monitoring. Elevate extremities. (2) CKD (chronic kidney disease): Code(s): N18.9 - Chronic kidney disease, unspecified Status: Acute Assessment and Plan: Baseline appears to be quite variable, however recently creatinine was around 2.1. Upon presentation, creatinine was 4.58. Renal ultrasound showed mild atrophy of the kidneys with no hydronephrosis. Nephrology has been consulted and their input is appreciated. Continue with diuresis at this time monitoring renal function closely. (3) DM2 (diabetes mellitus, type 2): Code(s): E11.9 - Type 2 diabetes mellitus without complications Status: Acute Assessment and Plan: A1c is 6.0. blood sugars have been generally well controlled. Continue Accu-Cheks ACHS, SSI, and hypoglycemia protocol metformin is on hold patient's weekly injectable Ozempic is non formulary. (4) Non-small cell lung cancer (NSCLC): Code(s): C34.90 - Malignant neoplasm of unspecified part of unspecified bronchus or lung Status: Acute Assessment and Plan: The patient is current with Dr. Izaguirre at [facility]. She has expressed that she may be seeking a new oncologist, however she declined to speak with the oncologist here. She will need outpatient follow-up. (5) Hypomagnesemia: Code(s): E83.42 - Hypomagnesemia Status: Acute Assessment and Plan: Magnesium is 1.9 today. Continue with oral magnesium supplement (6) On home oxygen therapy: Code(s): Z99.81 - Dependence on supplemental oxygen Status: Acute Assessment and Plan: She is on 5 L per nasal cannula at home. Suspect chronic respiratory failure is secondary to COPD, MARAINA, and CHF. She is currently maintaining adequate oxygen saturations on her typical 5 L. Continue supplemental O2 as needed with goal saturation 90% or above. Wean to goal. (7) Afib: Code(s): I48.91 - Unspecified atrial fibrillation Status: Chronic Assessment and Plan: Rate is controlled. The patient is Coreg, digoxin, and diltiazem Continue eliquis Continue monitoring on telemetry until cardiology evaluation. (8) COPD (chronic obstructive pulmonary disease): Code(s): J44.9 - Chronic obstructive pulmonary disease, unspecified Status: Acute Assessment and Plan: Chronic and stable. Does not appear to be in acute exacerbation. Continue supplemental O2 as above. Continue bronchodilators (9) Benign hypertension: Code(s): I10 - Essential (primary) hypertension Status: Acute Assessment and Plan: blood pressure evaluated today and stable at 100/63. Continue antihypertensive regimen of Lasix, Coreg, and diltiazem monitor blood pressure daily Subjective Date/time seen: 06/24/20 13:11 Interval history: Date of service: 06/24/2020 Kylee Brand is a 65 year old male with a history of atrial fibrillation, HTN, CHF, COPD, Type 2 DM, non-small cell lung cancer, and multiple other comorbidities who is seen in follow up for CHF exacerbation. She is feeling short of breath
--- NOTE | 2020-06-24 15:52 | PM.CNCAR ---
Assessment and Plan Assessment and plan (1) Chronic diastolic CHF (congestive heart failure): Code(s): I50.32 - Chronic diastolic (congestive) heart failure Status: Acute Assessment and Plan: Patient has chronic diastolic CHF and definitely is volume overloaded. However her renal function suggests that she has intravascular volume depletion. It may be that her metolazone appears to have been increased from 5 mg on Wednesdays and Fridays to 5 mg daily on her recent discharge. In addition her main complaints were weakness and she is having myoclonic jerks suggesting some metabolic abnormality. I think we should back off on diuretics (I have held them today) and give her a chance to Re-equilibrate intravascularly, make sure her renal function is stable, and resume diuretics in another day or 2. Will see what nephrology suggests as well. In addition, she has been on digoxin and we should check a digoxin level. Hold digoxin. (2) Hypovolemia: Code(s): E86.1 - Hypovolemia Status: Acute Assessment and Plan: I think the patient may be intravascularly dry. (3) Acute kidney injury superimposed on chronic kidney disease: Code(s): N17.9 - Acute kidney failure, unspecified; N18.9 - Chronic kidney disease, unspecified Status: Acute Assessment and Plan: Significant rise in BUN and creatinine over the last week perhaps due to over diuresis. Check a CMP in the morning. (4) Lung cancer: Code(s): C34.90 - Malignant neoplasm of unspecified part of unspecified bronchus or lung Status: Acute Assessment and Plan: Lung cancer with localized progression and new lymph node by PET scanning, on chemotherapy, last dose probably end of each May. (5) Exposure to COVID-19 virus: Code(s): Z20.828 - Contact with and (suspected) exposure to other viral communicable diseases Status: Acute Assessment and Plan: Daughter was positive for COVID today. Screen for COVID. History of Present Illness History of Present Illness Consult date/time: 06/24/20 15:52 Consult reason: congestive heart failure Reason For Visit: Acute Renal Failure, CHF Narrative: Date of service: 06/24/2020 Kylee Granado is an unfortunate 65-year-old white female with a history of CHF, atrial fibrillation, lung cancer on chemo, morbid obesity and sleep apnea. We were asked to see her at the request of the hospitalists for advice and opinion regarding for swelling and CHF in consultation. The patient was hospitalized overnight at [facility] [facility] for edema and CHF. She had not been watching her fluid intake. Looks like she was discharged on furosemide 40 mg b.i.d. and her metolazone was increased to 5 mg daily. (She usually takes metolazone 5 mg on Wednesdays and Fridays.) The patient's mental status is a bit hazy and she cannot tell me with certainty what diuretics she is taking. Her creatinine on discharge was 2 .0 with a BUN of 35. She is now 4.3 with a BUN of 68. Since then she has been watching her fluids and remains on a low-salt diet. She went to the emergency room because of generalized weakness and jerking of her arms and legs. Her legs would not bear weight. She has had a poor appetite the last few days. She also has edema and chronic WELLS, with chronic orthopnea. Her weight is up 13 kilos since her office visit with me in February, and 3 kilos since her discharge on June 16. She does have COPD and is on home O2 at 5 L. She states she has been compliant with her CPAP. Of note she does found out her daughter tested positive for COVID today. She does not live with her daughter but they see each other frequently. The patient denies any fevers. She has a mild chronic cough. In addition she was found have non-small cell lung cancer in August 2019 treated
--- NOTE | 2020-06-24 17:58 | P.CONNP_ITS ---
Assessment and Plan Assessment and plan (1) NILSON (acute kidney injury): Code(s): N17.9 - Acute kidney failure, unspecified Status: Acute Assessment and Plan: * suspect overdiuresis in spite of the fact she appears volume overloaded * I agree with Dr. Young -- suspect the patient is intravascularly dry despi te the fact she has outward signs of volume overload * difficult situation but it seems reasonable to hold diuresis for a few days in effort to allow her volume status to equilibrate prior to re-initiation of diuretic therapy * she may need IVFs but hold that intervention for now given her cardiac history and tenuous respiratory status * renal ultrasound * check urine electrolytes tomorrow as suspect maybe difficult to interpret since was on diuretic therapy * follow trend of repeat labs (2) CKD (chronic kidney disease): Code(s): N18.9 - Chronic kidney disease, unspecified Status: Chronic Assessment and Plan: * unclear what her baseline creatinine truely is * her creatinine has fluctuated to extremes since earlier this * best guess is that she runs ~ 1.5 - 2.0mg/dl * presumably due to CHF, necessity of diuretics, DM, and HTN (3) Chronic diastolic CHF (congestive heart failure): Code(s): I50.32 - Chronic diastolic (congestive) heart failure Status: Acute Assessment and Plan: * recent admission for volume overload requiring increased diuretic therapy * Cardiology following (4) Anemia: Code(s): D64.9 - Anemia, unspecified Status: Acute Assessment and Plan: * related to NILSON, CKD, and perhaps acute illness * consider empiric Epogen * follow trend of H/H (5) Lung cancer: Code(s): C34.90 - Malignant neoplasm of unspecified part of unspecified bronchus or lung Status: Acute Assessment and Plan: * on chemotherapy (6) Exposure to COVID-19 virus: Code(s): Z20.828 - Contact with and (suspected) exposure to other viral communicable diseases Status: Acute Assessment and Plan: * follow-up on COVID testing Will continue to follow. History of Present Illness Reason for Consult Consult date: 06/24/20 Reason for consult: acute renal failure (on chronic kidney disease) Chief Complaint Chief complaint: Acute Renal Failure, CHF History of Present Illness Narrative: The patient is an unfortunate 65-year-old female with a past medical history as outlined below who was transferred form [facility] for further evaluation of her CHF exacerbation in association with acute renal failure. From review of her records, the patient was just recently hospitalized at [facility] for CHF exacerbation. By the time of discharge her creatinine was a little bit higher at around 2.0 mg/dL and she was discharged on metolazone once a day as opposed to 3 times a week previously. She returned to [facility] Emergency room 2 days ago with complaints of shortness of breath and feeling very weak in association with lack of energy. She reported difficulty walking and worsening swelling in her lower extremities and abdomen. Workup and evaluation there demonstrated the patient to have evidence of fluid overload in association with acute renal failure as her creatinine was up to 4.3 mg/dL in comparison to what it was on discharge not too long ago. She apparently has been watching her fluid intake and despite the higher doses/frequency of diuretics, it would seem that her overall fluid status has de teriorated possibly worsened by her renal dysfunction. Other associat
--- NOTE | 2020-06-24 17:58 | PM.CNNEP ---
Assessment and Plan Assessment and plan (1) NILSON (acute kidney injury): Code(s): N17.9 - Acute kidney failure, unspecified Status: Acute Assessment and Plan: suspect overdiuresis in spite of the fact she appears volume overloaded I agree with Dr. Young -- suspect the patient is intravascularly dry despite the fact she has outward signs of volume overload difficult situation but it seems reasonable to hold diuresis for a few days in effort to allow her volume status to equilibrate prior to re-initiation of diuretic therapy she may need IVFs but hold that intervention for now given her cardiac history and tenuous respiratory status renal ultrasound check urine electrolytes tomorrow as suspect maybe difficult to interpret since was on diuretic therapy follow trend of repeat labs (2) CKD (chronic kidney disease): Code(s): N18.9 - Chronic kidney disease, unspecified Status: Chronic Assessment and Plan: unclear what her baseline creatinine truely is her creatinine has fluctuated to extremes since earlier this best guess is that she runs ~ 1.5 - 2.0mg/dl presumably due to CHF, necessity of diuretics, DM, and HTN (3) Chronic diastolic CHF (congestive heart failure): Code(s): I50.32 - Chronic diastolic (congestive) heart failure Status: Acute Assessment and Plan: recent admission for volume overload requiring increased diuretic therapy Cardiology following (4) Anemia: Code(s): D64.9 - Anemia, unspecified Status: Acute Assessment and Plan: related to NILSON, CKD, and perhaps acute illness consider empiric Epogen follow trend of H/H (5) Lung cancer: Code(s): C34.90 - Malignant neoplasm of unspecified part of unspecified bronchus or lung Status: Acute Assessment and Plan: on chemotherapy (6) Exposure to COVID-19 virus: Code(s): Z20.828 - Contact with and (suspected) exposure to other viral communicable diseases Status: Acute Assessment and Plan: follow-up on COVID testing Will continue to follow. History of Present Illness Reason for Consult Consult date: 06/24/20 Reason for consult: acute renal failure (on chronic kidney disease) Chief Complaint Chief complaint: Acute Renal Failure, CHF History of Present Illness Narrative: The patient is an unfortunate 65-year-old female with a past medical history as outlined below who was transferred form [facility] for further evaluation of her CHF exacerbation in association with acute renal failure. From review of her records, the patient was just recently hospitalized at [facility] for CHF exacerbation. By the time of discharge her creatinine was a little bit higher at around 2.0 mg/dL and she was discharged on metolazone once a day as opposed to 3 times a week previously. She returned to [facility] Emergency room 2 days ago with complaints of shortness of breath and feeling very weak in association with lack of energy. She reported difficulty walking and worsening swelling in her lower extremities and abdomen. Workup and evaluation there demonstrated the patient to have evidence of fluid overload in association with acute renal failure as her creatinine was up to 4.3 mg/dL in comparison to what it was on discharge not too long ago. She apparently has been watching her fluid intake and despite the higher doses/frequency of diuretics, it would seem that her overall fluid status has deteriorated possibly worsened by her renal dysfunction. Other associated complaints including jerking of her arms and legs as well as poor appetite and worsening of her baseline dyspnea on exertion and orthopnea. Given these issues, she was transferred to [facility] for further evaluation and treatment. Renal consultation was requested due to her acute kidney injury on top of her baseline kidney disease. From review of her jerald
[2020-06-24 18:10] LABS: Glucose Point of Care 152 (65-105)
--- NOTE | 2020-06-24 18:18 | PC.NURSE ---
This patient, Kylee Brand, was [facility] on 06/24/20 at 1818. Personal belongings sent with patient. Report given to Calli Berg. Appropriate documentation sent with patient.
--- NOTE | 2020-06-24 18:54 | PC.NURSE ---
This patient, Kylee Brand, was received from [[address] [place] [address]] on 06/24/20 at 1840. Patient/family oriented to unit policies and routines
[2020-06-25] VITALS (10 sets, daily range): BP systolic 102–152; BP diastolic 46–116; PULSE 76–100; RESP 14–20; TEMP 35.9–36.8; O2SAT 89–95
[2020-06-25 06:54] LABS: Hematocrit 26.9 % (37.0-47.0); Hemoglobin 8.2 g/dL (12.0-15.0); Mean Corpuscular HGB Conc 30.5 g/dl (32-36); Mean Corpuscular Volume 111.6 fl (80-100); Mean Platelet Volume 11.2 fl (7.4-10.4); Platelet Count Result 85 k/mm3 (150-375); Red Blood Count 2.41 M/mm3 (4.2-5.4); Red Cell Distribution Width 21.8 % (11.5-14.5); White Blood Count 4.3 K/mm3 (4.5-10.0)
[2020-06-25 06:57] LABS: Alanine Aminotransferase 9 U/L (4-35); Albumin Level 3.1 g/dL (3.5-5.1); Alkaline Phosphatase 122 U/L (38-126); Anion Gap 8 mmol/L (8-16); Aspartate Amino Transferase 20 U/L (14-36); Bilirubin,Total 0.7 mg/dL (0.2-1.3); Blood Urea Nitrogen 71 mg/dL (7-17); Calcium 8.2 mg/dL (8.4-10.2); Carbon Dioxide 29 mmol/L (22-30); Chloride 98 mmol/L (98-107); Estimated CRCL calculation 14 ml/min; Estimated Glomerular Filt Rate 8; Glucose 138 mg/dL (65-105); Potassium 5.8 mmol/L (3.4-5.0); Sodium 135 mmol/L (137-145)
[2020-06-25 07:19] LABS: Digoxin < 0.4 ng/mL (0.8-2.0)
[2020-06-25] MEDS: APIXABAN 5 MG TABLET PO ×2 (07:37→16:34)
[2020-06-25] MEDS: allopurinoL 300 MG TABLET PO (07:37)
[2020-06-25] MEDS: POTASSIUM CHLORIDE 20 MEQ TABLET.ER PO (07:37)
[2020-06-25] MEDS: carvediloL 12.5 MG TABLET 37.5 MG PO ×2 (07:38→20:33)
[2020-06-25] MEDS: FUROSEMIDE INJ 40 MG/4 ML VIAL IV PUSH (07:38)
[2020-06-25] MEDS: CALCIUM CARBONATE (OSCAL) 500 MG TABLET PO ×2 (07:38→16:34)
[2020-06-25] MEDS: MAGNESIUM OXIDE 400 MG TABLET PO (07:39)
[2020-06-25] MEDS: GABAPENTIN 300 MG CAPSULE PO ×3 (07:39→16:35)
[2020-06-25] MEDS: LORATADINE 10 MG TABLET PO (07:39)
[2020-06-25] MEDS: INSULIN HUMAN REGULAR (*BKC) 100 UNITS/ML 10 UNITS SUB-Q (09:53)
[2020-06-25] MEDS: CALCIUM GLUC 1,000 MG/NS 50 ML 1,000 MG/50 ML BAG 100 MG IVPB (09:54)
[2020-06-25] MEDS: SODIUM BICARBONATE 8.4% 50 MEQ/50 ML VIAL IV PUSH (09:54)
[2020-06-25] MEDS: DEXTROSE 50% 25 GM/50 ML SYRINGE IV PUSH (10:06)
[2020-06-25] MEDS: TOLNAFTATE 1% POWDER 45 GM BTL 1 APPLIC TOPICAL ×2 (10:07→20:34)
[2020-06-25 12:34] LABS: Glucose Point of Care 130 (65-105)
[2020-06-25 13:23] LABS: Anion Gap 7 mmol/L (8-16); Blood Urea Nitrogen 77 mg/dL (7-17); Calcium 8.3 mg/dL (8.4-10.2); Carbon Dioxide 31 mmol/L (22-30); Chloride 97 mmol/L (98-107); Estimated CRCL calculation 14 ml/min; Estimated Glomerular Filt Rate 8; Glucose 109 mg/dL (65-105); Potassium 5.7 mmol/L (3.4-5.0); Sodium 135 mmol/L (137-145)
--- NOTE | 2020-06-25 14:01 | PM.IMPN ---
Progress Note: A&P Assessment and Plan (1) CHF (congestive heart failure): Qualifiers: Heart failure chronicity: acute on chronic Heart failure type: unspecified Qualified Code(s): I50.9 - Heart failure, unspecified Code(s): I50.9 - Heart failure, unspecified Status: Inactive Assessment and Plan: chronic diastolic CHF. It appears that she has non compliant with her dietary restrictions and medications. Echo on 06/16/20 showed EF of 55-60% with abnormal LV diastolic function. Diuretics have been held per cardiology and nephrology recommendations in light of acute kidney injury. Appreciate cardiology and nephrology input. Daily weights, heart healthy diet, and strict I&O monitoring. Elevate extremities. (2) CKD (chronic kidney disease): Code(s): N18.9 - Chronic kidney disease, unspecified Status: Chronic Assessment and Plan: Baseline appears to be quite variable, however recently creatinine was around 2.1. Upon presentation, creatinine was 4.58. patient likely intravascularly dry. Renal ultrasound showed mild atrophy of the kidneys with no hydronephrosis. Slight increase in BUN and creatinine today. Nephrology And cardiology following as noted above. Input is appreciated. Continue to hold on diuresis. Continue to monitor renal function closely. Renally dose medications and avoid nephrotoxins. (3) Hyperkalemia: Code(s): E87.5 - Hyperkalemia Status: Acute Assessment and Plan: Potassium elevated at 5.8 this morning. likely secondary to kidney injury. Calcium gluconate, insulin and dextrose, and IV bicarb administered. potassium monitored after treatment with very slight improvement continue monitoring on telemetry for any evidence of arrhythmia. repeat potassium this evening Low potassium diet (4) DM2 (diabetes mellitus, type 2): Code(s): E11.9 - Type 2 diabetes mellitus without complications Status: Acute Assessment and Plan: A1c is 6.0. blood sugars have been generally well controlled. Continue Accu-Cheks ACHS, SSI, and hypoglycemia protocol metformin is on hold patient's weekly injectable Ozempic is non formulary. (5) Non-small cell lung cancer (NSCLC): Code(s): C34.90 - Malignant neoplasm of unspecified part of unspecified bronchus or lung Status: Acute Assessment and Plan: The patient is current with Dr. Izaguirre at [facility]. She has expressed that she may be seeking a new oncologist, however she declined to speak with the oncologist here. She will need outpatient follow-up. (6) Hypomagnesemia: Code(s): E83.42 - Hypomagnesemia Status: Acute Assessment and Plan: Magnesium stable. Continue to monitor. (7) On home oxygen therapy: Code(s): Z99.81 - Dependence on supplemental oxygen Status: Acute Assessment and Plan: She is on 5 L per nasal cannula at home. Suspect chronic respiratory failure is secondary to COPD, MARIANA, and CHF. She is currently maintaining adequate oxygen saturations on her typical 5 L. Continue supplemental O2 as needed with goal saturation 90% or above. Wean to goal. (8) Afib: Code(s): I48.91 - Unspecified atrial fibrillation Status: Chronic Assessment and Plan: Rate is controlled. Review of telemetry shows patient to be in atrial fibrillation. The patient is on Coreg, digoxin, and diltiazem Continue eliquis (9) COPD (chronic obstructive pulmonary disease): Code(s): J44.9 - Chronic obstructive pulmonary disease, unspecified Status: Acute Assessment and Plan: Chronic and stable. Does not appear to be in acute exacerbation. Continue supplemental O2 as above. Continue bronchodilators (10) Benign hypertension: Code(s): I10 - Essential (primary) hypertension Status: Acute Assessment and Plan: b
[2020-06-25 17:45] LABS: Glucose Point of Care 120 (65-105)
--- NOTE | 2020-06-25 18:03 | PM.PNNEP ---
Progress Note: A&P Assessment and Plan (1) NILSON (acute kidney injury): Code(s): N17.9 - Acute kidney failure, unspecified Status: Acute Assessment and Plan: suspicion falls on overdiuresis in spite of the fact she appears volume overloaded - suspect the patient is intravascularly dry despite the fact she has outward signs of volume overload hold diuresis for a few days in effort to allow her volume status to equilibrate prior to re-initiation of diuretic therapy she may need IVFs but hold that intervention for now given her cardiac history and tenuous respiratory status renal ultrasound results noted check urine electrolytes tomorrow as suspect maybe difficult to interpret since was on diuretic therapy follow trend of repeat labs (2) CKD (chronic kidney disease): Code(s): N18.9 - Chronic kidney disease, unspecified Status: Chronic Assessment and Plan: unclear what her baseline creatinine truely is her creatinine has fluctuated to extremes since earlier this best guess is that she runs ~ 1.5 - 2.0mg/dl presumably due to CHF, necessity of diuretics, DM, and HTN (3) Chronic diastolic CHF (congestive heart failure): Code(s): I50.32 - Chronic diastolic (congestive) heart failure Status: Acute Assessment and Plan: recent admission for volume overload requiring increased diuretic therapy Cardiology following (4) Anemia: Code(s): D64.9 - Anemia, unspecified Status: Acute Assessment and Plan: related to NILSON, CKD, and perhaps acute illness consider empiric Epogen follow trend of H/H (5) Lung cancer: Code(s): C34.90 - Malignant neoplasm of unspecified part of unspecified bronchus or lung Status: Acute Assessment and Plan: on chemotherapy (6) Exposure to COVID-19 virus: Code(s): Z20.828 - Contact with and (suspected) exposure to other viral communicable diseases Status: Acute Assessment and Plan: follow-up on COVID testing Long and extensive discussion with patient regarding her renal dysfunction and worsening trend -- voiced my hope that her kidney function will get better but also discussed the possibility of renal replacement therapy/dialysis if she runs into trouble with hyperkalemia, uremia, or volume overload. She appeared to voice understanding. Will continue to follow. Subjective Date/time seen: 06/25/20 15:30 In spite of her numerous issues and acute illness at this time, she feels reasonably well; swelling/edema seems stable and her breathing is at baseline; unfortunately, her kidney function has worsened as noted by AM labs; received medical management for her hyperkalemia; Objective Data Vital Signs Vital Signs: Vital Signs Temp Pulse Resp BP Pulse Ox 06/25/20 12:00 35.9 C L 82 20 102/82 89 L 06/25/20 08:00 36.7 C 80 14 136/100 H 95 06/25/20 07:38 90 06/25/20 04:00 35.9 C L 89 20 110/50 L 91 06/25/20 00:00 96 06/24/20 23:14 36.3 C L 86 22 H 137/86 97 06/24/20 20:50 78 97 06/24/20 20:00 35.8 C L 84 22 H 138/94 H 95 06/24/20 18:40 36.9 C 70 20 120/98 H 93 Intake/Output Intake/Output: Intake & Output 06/22/20 06/23/20 06/24/20 06/25/20 23:59 23:59 23:59 23:59 Intake Total 50 1220 1140 Output Total 101 Balance 50 1119 1140 Meds/Results Medications: Active Medications Generic Name Dose Route Start Last Admin Trade Name Freq PRN Reason Stop Dose Admin Acetaminophen/Codeine Phosphate 1 tab 06/24/20 00:51 Acetaminophen/Codeine (*Crx) 300/30 Mg Tablet PO Q8H PRN Pain Rated 4-6 Albuterol 2.5 mg 06/24/20 01:13 Albuterol Sulfate Neb 2.5 Mg/0.5 Ml Inh INHALATION Q6HRT PRN Shortness Of Breath Allopurinol 300 mg 06/24/20 08:00 06/25/20 07:37 Allopurinol 300 Mg Tablet PO 300 mg DAILY@0800 OSCAR Administration Apixaban 5 mg 06/24/20 09:00
[2020-06-25 18:28] LABS: Potassium 5.8 mmol/L (3.4-5.0)
[2020-06-25 20:04] LABS: SARS-CoV-2 RNA PCR Positive
[2020-06-25] MEDS: MELATONIN 5 MG TABLET PO (20:34)
[2020-06-25 21:37] LABS: Glucose Point of Care 165 (65-105)
[2020-06-26] VITALS (11 sets, daily range): BP systolic 96–105; BP diastolic 48–81; PULSE 73–98; RESP 18–24; TEMP 36.4–36.8; O2SAT 90–98; BMI 10.0
[2020-06-26 06:31] LABS: Hematocrit 25.5 % (37.0-47.0); Mean Corpuscular HGB Conc 31.4 g/dl (32-36); Mean Corpuscular Volume 108.5 fl (80-100); Mean Platelet Volume 11.4 fl (7.4-10.4); Platelet Count Result 77 k/mm3 (150-375); Red Blood Count 2.35 M/mm3 (4.2-5.4); Red Cell Distribution Width 21.3 % (11.5-14.5); White Blood Count 4.5 K/mm3 (4.5-10.0)
[2020-06-26 06:58] LABS: Anion Gap 8 mmol/L (8-16); Blood Urea Nitrogen 80 mg/dL (7-17); Calcium 8.2 mg/dL (8.4-10.2); Carbon Dioxide 28 mmol/L (22-30); Chloride 98 mmol/L (98-107); Estimated CRCL calculation 13 ml/min; Estimated Glomerular Filt Rate 7; Glucose 124 mg/dL (65-105); Magnesium 2.2 mg/dL (1.6-2.3); Potassium 5.6 mmol/L (3.4-5.0); Sodium 134 mmol/L (137-145)
[2020-06-26 07:08] LABS: Glucose Point of Care 140 (65-105)
[2020-06-26] MEDS: allopurinoL 300 MG TABLET PO (08:00)
[2020-06-26] MEDS: APIXABAN 5 MG TABLET PO ×2 (08:01→16:44)
[2020-06-26] MEDS: CALCIUM CARBONATE (OSCAL) 500 MG TABLET PO ×2 (08:01→16:43)
[2020-06-26] MEDS: carvediloL 12.5 MG TABLET 37.5 MG PO ×2 (08:02→20:31)
[2020-06-26] MEDS: TOLNAFTATE 1% POWDER 45 GM BTL 1 APPLIC TOPICAL ×2 (08:02→20:33)
[2020-06-26] MEDS: LORATADINE 10 MG TABLET PO (08:02)
[2020-06-26] MEDS: GABAPENTIN 300 MG CAPSULE PO ×3 (08:02→16:43)
[2020-06-26 08:33] LABS: Glucose Point of Care 139 (65-105)
[2020-06-26 12:07] LABS: Glucose Point of Care 151 (65-105)
--- NOTE | 2020-06-26 14:39 | PM.IMPN ---
Progress Note: A&P Assessment and Plan (1) COVID-19: Code(s): U07.1 - COVID-19 Status: Acute Assessment and Plan: Patient's daughter tested positive COVID-19 on 06/24/2020, therefore patient tested given her direct contact and she tested positive as well. Infiltrates at the lung bases. At this time, she is relatively asymptomatic. O2 requirements had increased on her baseline 5 L O2 per nasal cannula. Now requiring 8 L. Will initiate IV dexamethasone given increased O2 requirements. She is not a candidate for Remdesivir given her kidney failure. Supplemental O2 as needed with goal saturation 90% or above. Wean to goal. Supportive care to include bronchodilators, expectorants, and antipyretics. Trend acute phase reactant Continue isolation precautions (2) Acute kidney injury superimposed on chronic kidney disease: Code(s): N17.9 - Acute kidney failure, unspecified; N18.9 - Chronic kidney disease, unspecified Status: Acute Assessment and Plan: Baseline appears to be quite variable, however recently creatinine was around 2.1. Upon presentation, creatinine was 4.58. Patient likely intravascularly dry secondary to diuresis although she appears fluid overloaded. Renal ultrasound showed mild atrophy of the kidneys with no hydronephrosis. Continued increase in BUN and Cr today. Nephrology following as noted above. Input is appreciated. Continue to hold on diuresis. Continue to monitor renal function closely. Renally dose medications and avoid nephrotoxins. (3) CHF (congestive heart failure): Qualifiers: Heart failure chronicity: acute on chronic Heart failure type: unspecified Qualified Code(s): I50.9 - Heart failure, unspecified Code(s): I50.9 - Heart failure, unspecified Status: Inactive Assessment and Plan: chronic diastolic CHF. It appears that she had been non compliant with her dietary restrictions and medications. Echo on 06/16/20 showed EF of 55-60% with abnormal LV diastolic function. Diuretics have been held per cardiology and nephrology recommendations in light of acute kidney injury. Appreciate cardiology and nephrology input. Cardiology has signed off while renal function is being evaluated - case discussed with Tiffany Vazquez NP today. Daily weights, heart healthy diet, and strict I&O monitoring. Elevate extremities. (4) Hyperkalemia: Code(s): E87.5 - Hyperkalemia Status: Acute Assessment and Plan: Potassium elevated at 5.8 on 06/25/20 and patient did receive PO potassium supplement at that time. Therefore, potassium lowering therapy initiated. She received calcium gluconate, insulin and dextrose, and IV bicarb. Potassium 5.6 this morning. Suspect this is secondary to kidney disease. No evidence of arrhythmia on telemetry. Case discussed with Dr. Dorsey today. He recommends holding on further treatment at this time and monitoring potassium closely; expect continued decline continue monitoring on telemetry for any evidence of arrhythmia. Low potassium diet (5) DM2 (diabetes mellitus, type 2): Code(s): E11.9 - Type 2 diabetes mellitus without complications Status: Acute Assessment and Plan: A1c is 6.0. blood sugars have been generally well controlled. Continue Accu-Cheks ACHS, SSI, and hypoglycemia protocol metformin is on hold patient's weekly injectable Ozempic is non formulary. (6) Non-small cell lung cancer (NSCLC): Code(s): C34.90 - Malignant neoplasm of unspecified part of unspecified bronchus or lung Status: Acute Assessment and Plan: The patient is current with Dr. Izaguirre at [facility]. She has expressed that she may be seeking a new oncologist, however she declined to speak with the oncologist here. She will need outpatient follow-up. (7) Hypomagnesemia: Code(s): E83.42 - Hypomagnesemia Status: Acute
--- NOTE | 2020-06-26 15:40 | PM.PNNEP ---
Progress Note: A&P Assessment and Plan (1) NILSON (acute kidney injury): Code(s): N17.9 - Acute kidney failure, unspecified Status: Acute Assessment and Plan: suspicion falls on overdiuresis in spite of the fact she appears volume overloaded - suspect the patient is intravascularly dry despite the fact she has outward signs of volume overload hold diuresis for a few days in effort to allow her volume status to equilibrate prior to re-initiation of diuretic therapy she may need IVFs but hold that intervention for now given her cardiac history and tenuous respiratory status renal ultrasound results noted check urine electrolytes tomorrow as suspect maybe difficult to interpret since was on diuretic therapy follow trend of repeat labs (2) CKD (chronic kidney disease): Code(s): N18.9 - Chronic kidney disease, unspecified Status: Chronic Assessment and Plan: unclear what her baseline creatinine truely is her creatinine has fluctuated to extremes since earlier this year best guess is that she runs ~ 1.5 - 2.0mg/dl presumably due to CHF, necessity of diuretics, DM, and HTN (3) Chronic diastolic CHF (congestive heart failure): Code(s): I50.32 - Chronic diastolic (congestive) heart failure Status: Acute Assessment and Plan: recent admission for volume overload requiring increased diuretic therapy Cardiology following (4) Anemia: Code(s): D64.9 - Anemia, unspecified Status: Acute Assessment and Plan: related to NILSON, CKD, and perhaps acute illness consider empiric Epogen follow trend of H/H (5) Lung cancer: Code(s): C34.90 - Malignant neoplasm of unspecified part of unspecified bronchus or lung Status: Acute Assessment and Plan: on chemotherapy Long and extensive discussion with patient and daughter (by phone) regarding her worsening kidney function in association with declining urine output as well as the possibility that her jerking movements may be be an early sign/concern of uremia; I also brought the possible concern that she may need renal replacement therapy/dialysis if her kidney function continues to deteriorate as well -- they both seemed to voice understanding. Will continue to follow. Subjective Date/time seen: 06/26/20 15:40 Renal function continues to deteriorate; found to be COVD-19 positive; potassium borderline elevated as well; discussed case with daughter by phone in room; still with jerking movements in upper and lower extremities. Exam Narrative: Exam Narrative: General: Large female in NAD Heart: IRRR, normal S1 and S2; no rub Lungs: coarse breath sounds Abdomen: soft, nontender, nondistended, positive bowel sounds Extremities: no cyanosis or clubbing; 1+ edema Skin: warm and dry Objective Data Vital Signs Vital Signs: Vital Signs Temp Pulse Resp BP Pulse Ox 06/26/20 12:00 36.7 C 87 18 105/81 98 06/26/20 08:02 98 06/26/20 08:00 36.7 C 97 20 101/60 90 06/26/20 04:59 36.8 C 98 22 H 100/60 91 06/26/20 04:00 95 06/26/20 01:10 36.6 C 95 20 102/48 L 91 06/26/20 00:00 91 06/25/20 21:15 36.8 C 95 20 104/46 L 91 06/25/20 20:33 94 06/25/20 20:15 91 06/25/20 20:00 80 06/25/20 16:00 36.0 C L 88 16 152/116 H 91 Intake/Output Intake/Output: Intake & Output 06/23/20 06/24/20 06/25/20 06/26/20 23:59 23:59 23:59 23:59 Intake Total 50 1220 1440 420 Output Total 101 Balance 50 1119 1440 420 Meds/Results Medications: Active Medications Generic Name Dose Route Start Last Admin Trade Name Freq PRN Reason Stop Dose Admin Acetaminophen/Codeine Phosphate 1 tab 06/24/20 00:51 Acetaminophen/Codeine (*Crx) 300/30 Mg Tablet PO Q8H PRN Pain Rated 4-6 Albuterol 2.5 mg 06/24/20 01:13 Albuterol Sulfate Neb 2.5 Mg/0.5 Ml Inh INHALATION Q6HRT PRN Shortness Of B
[2020-06-26 17:13] LABS: Glucose Point of Care 167 (65-105)
[2020-06-26] MEDS: MELATONIN 5 MG TABLET PO (20:32)
[2020-06-26 21:06] LABS: Glucose Point of Care 161 (65-105)
[2020-06-27] VITALS (31 sets, daily range): BP systolic 71–154; BP diastolic 27–121; PULSE 72–115; RESP 16–26; TEMP 35.7–37; O2SAT 9–100
[2020-06-27 07:49] LABS: Hematocrit 26.5 % (37.0-47.0); Hemoglobin 8.3 g/dL (12.0-15.0); Mean Corpuscular HGB Conc 31.3 g/dl (32-36); Mean Corpuscular Hemoglobin 34.2 pg (26-34); Mean Corpuscular Volume 109.1 fl (80-100); Mean Platelet Volume 11.5 fl (7.4-10.4); Platelet Count Result 78 k/mm3 (150-375); Red Blood Count 2.43 M/mm3 (4.2-5.4); Red Cell Distribution Width 21.2 % (11.5-14.5); White Blood Count 4.2 K/mm3 (4.5-10.0)
[2020-06-27 08:09] LABS: Alveolar/Arterial O2 Gradient 446.9 mmHg; Base Excess ABG -2.4 mEq/l (+/-2.0); Fractional Inspired Oxygen 80 %; HCO3 ABG 24.2 mEq/l (22.0-26.0); Oxygen Content ABG 11.3 %vol (16.0-22.0); Oxygen Saturation ABG 92.3 % (95.0-100.0); Oxyhemoglobin 88.9 % THb (90.0-100.0); PCO2 ABG 50.5 mmHg (35.0-45.0); PO2 ABG 70.5 mmHg (80.0-100.0); PO2 FiO2 Ratio Arterial Blood 0.88 %
[2020-06-27 08:11] LABS: Alanine Aminotransferase 10 U/L (4-35); Albumin Level 3.1 g/dL (3.5-5.1); Alkaline Phosphatase 116 U/L (38-126); Anion Gap 9 mmol/L (8-16); Aspartate Amino Transferase 22 U/L (14-36); Bilirubin,Total 0.7 mg/dL (0.2-1.3); Blood Urea Nitrogen 93 mg/dL (7-17); CRP 2.5 mg/dL (<1.0); Carbon Dioxide 29 mmol/L (22-30); Chloride 97 mmol/L (98-107); Estimated CRCL calculation 13 ml/min; Estimated Glomerular Filt Rate 7; Glucose 142 mg/dL (65-105); Lactate Dehydrogenase 233 U/L (313-618); Potassium 6.3 mmol/L (3.4-5.0); Sodium 135 mmol/L (137-145)
[2020-06-27 08:12] LABS: Device HIGH FLOW NASAL CANN; Modified Allen's Test Pass; Site Drawn LEFT RADIAL; pH ABG 7.298 (7.350-7.450)
[2020-06-27] MEDS: DEXAMETHASONE SOD PHOS INJ 4 MG/ML VIAL 6 MG IV PUSH (08:25)
[2020-06-27] MEDS: APIXABAN 5 MG TABLET PO (08:26)
[2020-06-27] MEDS: carvediloL 12.5 MG TABLET 37.5 MG PO (08:26)
--- NOTE | 2020-06-27 09:01 | PC.NURSE ---
This patient, Kylee Brand, was transferred to IMU room 214 on 06/27/20 at 0901. Personal belongings sent with patient. Report given to [ ]. Appropriate documentation sent with patient.
[2020-06-27] MEDS: DEXTROSE 50% 25 GM/50 ML SYRINGE IV PUSH (09:22)
[2020-06-27] MEDS: oxyCODONE HCL (*CRX) 5 MG TAB IR PO (09:22)
[2020-06-27] MEDS: INSULIN HUMAN REGULAR (*BKC) 100 UNITS/ML 10 UNITS IV PUSH (09:23)
--- NOTE | 2020-06-27 09:26 | P.PNNP_ITS ---
Progress Note: A&P Assessment and Plan (1) NILSON (acute kidney injury): Code(s): N17.9 - Acute kidney failure, unspecified Status: Acute Assessment and Plan: * The patient has acute kidney injury. * Renal ultrasound shows a smaller left kidney than the right. * The patient is now demonstrating uremic symptoms. * BUN and creatinine are very high. * I think we need to start dialysis. * I talked with the patient she is okay with that however I am not sure how much she comprehends. * I put a call in to her to call me over head to talk about it. * I have asked surgery to place a Cole and we will start dialysis today. Because of her symptoms we do need to start this today. (2) CKD (chronic kidney disease): Code(s): N18.9 - Chronic kidney disease, unspecified Status: Chronic Assessment and Plan: * unclear what her baseline creatinine truely is * her creatinine has fluctuated to extremes since earlier this year * Will follow this along. * This makes it a little less likely that her kidney function will improve but I think she still has a good chance. (3) Chronic diastolic CHF (congestive heart failure): Code(s): I50.32 - Chronic diastolic (congestive) heart failure Status: Acute Assessment and Plan: * recent admission for volume overload requiring increased diuretic therapy * Cardiology following (4) Anemia: Code(s): D64.9 - Anemia, unspecified Status: Acute Assessment and Plan: * related to NILSON, CKD, and perhaps acute illness * Start Epogen (5) Lung cancer: Code(s): C34.90 - Malignant neoplasm of unspecified part of unspecified bronchus or lung Status: Acute Assessment and Plan: * on chemotherapy Subjective Date/time seen: 06/27/20 09:27 Interval history: Patient is awake. She know she is in a hospital. She has twitching of all four limbs Review of Systems Review of Systems: ROS unobtainable: Yes unobtainable due to medical condition Exam Narrative: Exam Narrative: General: Large female in NAD Heart: IRRR, normal S1 and S2; no rub Lungs: coarse breath sounds Abdomen: soft, nontender, nondistended, positive bowel sounds Extremities: no cyanosis or clubbing; 1+ edema Skin: No rash Neuro: Patient is a bit distracted. She has asterixis and some myoclonic jerks. Objective Data Vital Signs Vital Signs: Vital Signs - 24 hr 06/26/20 12:00 06/26/20 16:00 06/26/20 18:21 Temperature 36.7 C 36.7 C Pulse Rate 87 73 Respiratory Rate 18 20 Blood Pressure 105/81 96/51 L Pulse Oximetry 98 90 90 06/26/20 20:00 06/26/20 22:21 06/27/20 00:00 Temperature 36.4 C L 36.4 C L Pulse Rate 89 90 72 Respiratory Rate 24 H 24 H Blood Pressure 96/57 L 71/58 L Pulse Oximetry 95 90 06/27/20 03:48 06/27/20 04:00 06/27/20 07:30 Temperature 36.4 C Pulse Rate 106 H Respiratory Rate 24 H Blood Pressure 123/107 H Pulse Oximetry 91 87 L 90 06/27/20 08:00 06/27/20 08:14 06/27/20 08:26 Temperature 36.4 C L Pulse Rate 107 H 106 H Respiratory Rate 26 H Blood Pressure 131/108 H Pulse Oximetry 87 L 92 Intake/Output Intake/Output:
--- NOTE | 2020-06-27 09:26 | PM.PNNEP ---
Progress Note: A&P Assessment and Plan (1) NILSON (acute kidney injury): Code(s): N17.9 - Acute kidney failure, unspecified Status: Acute Assessment and Plan: The patient has acute kidney injury. Renal ultrasound shows a smaller left kidney than the right. The patient is now demonstrating uremic symptoms. BUN and creatinine are very high. I think we need to start dialysis. I talked with the patient she is okay with that however I am not sure how much she comprehends. I put a call in to her to call me over head to talk about it. I have asked surgery to place a Cole and we will start dialysis today. Because of her symptoms we do need to start this today. (2) CKD (chronic kidney disease): Code(s): N18.9 - Chronic kidney disease, unspecified Status: Chronic Assessment and Plan: unclear what her baseline creatinine truely is her creatinine has fluctuated to extremes since earlier this year Will follow this along. This makes it a little less likely that her kidney function will improve but I think she still has a good chance. (3) Chronic diastolic CHF (congestive heart failure): Code(s): I50.32 - Chronic diastolic (congestive) heart failure Status: Acute Assessment and Plan: recent admission for volume overload requiring increased diuretic therapy Cardiology following (4) Anemia: Code(s): D64.9 - Anemia, unspecified Status: Acute Assessment and Plan: related to NILSON, CKD, and perhaps acute illness Start Epogen (5) Lung cancer: Code(s): C34.90 - Malignant neoplasm of unspecified part of unspecified bronchus or lung Status: Acute Assessment and Plan: on chemotherapy Subjective Date/time seen: 06/27/20 09:27 Interval history: Patient is awake. She know she is in a hospital. She has twitching of all four limbs Review of Systems Review of Systems: ROS unobtainable: Yes unobtainable due to medical condition Exam Narrative: Exam Narrative: General: Large female in NAD Heart: IRRR, normal S1 and S2; no rub Lungs: coarse breath sounds Abdomen: soft, nontender, nondistended, positive bowel sounds Extremities: no cyanosis or clubbing; 1+ edema Skin: No rash Neuro: Patient is a bit distracted. She has asterixis and some myoclonic jerks. Objective Data Vital Signs Vital Signs: Vital Signs - 24 hr 12/11/20 12:00 06/26/20 16:00 06/26/20 18:21 Temperature 36.7 C 36.7 C Pulse Rate 87 73 Respiratory Rate 18 20 Blood Pressure 105/81 96/51 L Pulse Oximetry 98 90 90 06/26/20 20:00 06/26/20 22:21 06/27/20 00:00 Temperature 36.4 C L 36.4 C L Pulse Rate 89 90 72 Respiratory Rate 24 H 24 H Blood Pressure 96/57 L 71/58 L Pulse Oximetry 95 90 06/27/20 03:48 06/27/20 04:00 06/27/20 07:30 Temperature 36.4 C Pulse Rate 106 H Respiratory Rate 24 H Blood Pressure 123/107 H Pulse Oximetry 91 87 L 90 06/27/20 08:00 06/27/20 08:14 06/27/20 08:26 Temperature 36.4 C L Pulse Rate 107 H 106 H Respiratory Rate 26 H Blood Pressure 131/108 H Pulse Oximetry 87 L 92 Intake/Output Intake/Output: Intake & Output 06/24/20 06/25/20 06/26/20 06/27/20 23:59 23:59 23:59 23:59 Intake Total 1220 1440 960 100 Output Total 101 Balance 1119 1440 960 100 Meds/Results Medications: Active Medications Generic Name Dose Route Start Last Admin Trade Name Freq PRN Reason Stop Dose Admin Acetaminophen/Codeine Phosphate 1 tab 06/24/20 00:51 Acetaminophen/Codeine (*Crx) 300/30 Mg Tablet PO Q8H PRN Pain Rated 4-6 Albuterol 2.5 mg 06/24/20 01:13 Albuterol Sulfate Neb 2.5 Mg/0.5 Ml Inh INHALATION Q6HRT PRN Shortness Of Breath Allopurinol 300 mg 06/24/20 08:00 06/27/20 08:33 Allopurinol 300 Mg Tablet PO Not Given DAILY@0800 [facility] Apixaban 5 mg 06/24/20 09:00 06/27/20 08:26 Apixaban 5 Mg Tablet PO 5 mg
[2020-06-27 09:34] LABS: Glucose Point of Care 110 (65-105)
[2020-06-27] MEDS: CALCIUM GLUC 1,000 MG/NS 50 ML 1,000 MG/50 ML BAG 100 MG IVPB (09:56)
[2020-06-27] MEDS: CALCIUM CARBONATE (OSCAL) 500 MG TABLET PO (09:56)
--- NOTE | 2020-06-27 10:57 | P.PNIM_ITS ---
Progress Note: A&P Assessment and Plan (1) Acute kidney injury superimposed on chronic kidney disease: Code(s): N17.9 - Acute kidney failure, unspecified; N18.9 - Chronic kidney disease, unspecified <Nessa Beach PA-C - Last Filed: 06/27/20 11:55> Status: Acute <Nessa Beach PA-C - Last Filed: 06/27/20 11:55> Assessment and Plan: Baseline appears to be quite variable, however recently creatinine was around 2.1. Upon presentation, creatinine was 4.58. Patient likely intravascularly dry secondary to diuresis although she appears fluid overloaded. Renal ultrasound showed mild atrophy of the kidneys with no hydronephrosis. BUN and Cr with steady increase and today Cr is 6.0 with electrolyte abnormalities and change in mental status. * Nephrology following. Recommend proceeding with dialysis. General surgery will place michelle catheter today and she will then proceed with dialysis today. I have discussed this case with my supervising physician and the synoptic meteorologist, who have both evaluated the patient. * Continue to hold on diuresis. * Monitor renal function closely. Renally dose medications and avoid nephrotoxins. <Nessa Beach PA-C - Last Filed: 06/27/20 11:55> (2) COVID-19: Code(s): U07.1 - COVID-19 <Nessa Beach PA-C - Last Filed: 06/27/20 11:55> Status: Acute <Nessa Beach PA-C - Last Filed: 06/27/20 11:55> Assessment and Plan: Tested on 06/24/20 with positive result reported 06/26. No true onset of symptoms as patient was tested due to close contact with known positive individual. CXR showed mild infiltrates at the lung bases. She has a baseline O2 requirement of 5L. Increased to 15L O2 overnight and now requiring BiPAP to maintain adequate O2 sats. * Continue IV dexamethasone started 06/26/20. She is not a candidate for Remdesivir given her kidney failure. * Continue BiPAP. Case discussed with synoptic meteorologist as noted above who recommends continuing BiPAP at this time. * Supportive care to include bronchodilators, expectorants, and antipyretics. * Trend acute phase reactants * Continue isolation precautions <Nessa Beach PA-C - Last Filed: 06/27/20 11:55> (3) CHF (congestive heart failure): Qualifiers: Heart failure chronicity: acute on chronic Heart failure type: unspecified Qualified Code(s): I50.9 - Heart failure, unspecified <JACKELYN ZambranoC - Last Filed: 06/27/20 11:55> Code(s): I50.9 - Heart failure, unspecified <JACKELYN ZambranoC - Last Filed: 06/27/20 11:55> Status: Inactive <AAKASH Zambrano-C - Last Filed: 06/27/20 11:55> Assessment and Plan: Chronic diastolic CHF. It appears that she had been non compliant with her dietary restrictions and medications. Echo on 06/16/20 showed EF of 55- 60% with abnormal LV diastolic function. * Diuretics have been held per cardiology and nephrology recommendations in light of acute kidney injury. * Appreciate cardiology and nephrology input. Cardiology has signed off while renal function is being evaluated - case discussed with Tiffany Vazquez NP on 06/26. * Digoxin on hold per cardiology. * Daily weights, heart healthy diet, and strict I&O monitoring. Elevate extremities. <Nessa Beach PA-C - Last Filed: 06/27/20 11:55> (4) Hyperkalemia: Code(s): E87.5 - Hyperkalemia <Nessa Beach PA-C - Last Filed: 06/27/20 11:55> Status: Acute <Nessa Beach PA-C - Last Filed: 06/27/20 11:55> Assessment and Plan: Secondary to kidney disease. Potassium eleva
--- NOTE | 2020-06-27 10:57 | PM.IMPN ---
Progress Note: A&P Assessment and Plan (1) Acute kidney injury superimposed on chronic kidney disease: Code(s): N17.9 - Acute kidney failure, unspecified; N18.9 - Chronic kidney disease, unspecified <Nessa Beach PA-C - Last Filed: 06/27/20 11:55> Status: Acute <Nessa Beach PA-C - Last Filed: 06/27/20 11:55> Assessment and Plan: Baseline appears to be quite variable, however recently creatinine was around 2.1. Upon presentation, creatinine was 4.58. Patient likely intravascularly dry secondary to diuresis although she appears fluid overloaded. Renal ultrasound showed mild atrophy of the kidneys with no hydronephrosis. BUN and Cr with steady increase and today Cr is 6.0 with electrolyte abnormalities and change in mental status. Nephrology following. Recommend proceeding with dialysis. General surgery will place michelle catheter today and she will then proceed with dialysis today. I have discussed this case with my supervising physician and the hearing aid dispenser, who have both evaluated the patient. Continue to hold on diuresis. Monitor renal function closely. Renally dose medications and avoid nephrotoxins. <Nessa Beach PA-C - Last Filed: 06/27/20 11:55> (2) COVID-19: Code(s): U07.1 - COVID-19 <Nessa Beach PA-C - Last Filed: 06/27/20 11:55> Status: Acute <Nessa Beach PA-C - Last Filed: 06/27/20 11:55> Assessment and Plan: Tested on 06/24/20 with positive result reported 06/26. No true onset of symptoms as patient was tested due to close contact with known positive individual. CXR showed mild infiltrates at the lung bases. She has a baseline O2 requirement of 5L. Increased to 15L O2 overnight and now requiring BiPAP to maintain adequate O2 sats. Continue IV dexamethasone started 06/26/20. She is not a candidate for Remdesivir given her kidney failure. Continue BiPAP. Case discussed with hearing aid dispenser as noted above who recommends continuing BiPAP at this time. Supportive care to include bronchodilators, expectorants, and antipyretics. Trend acute phase reactants Continue isolation precautions <JACKELYN ZambranoC - Last Filed: 06/27/20 11:55> (3) CHF (congestive heart failure): Qualifiers: Heart failure chronicity: acute on chronic Heart failure type: unspecified Qualified Code(s): I50.9 - Heart failure, unspecified <Nessa WesleyAAKASH Cooper-C - Last Filed: 06/27/20 11:55> Code(s): I50.9 - Heart failure, unspecified <Nessa WesleyAAKASH Cooper-C - Last Filed: 06/27/20 11:55> Status: Inactive <Nessa LupilloAAKASH Cooper-C - Last Filed: 06/27/20 11:55> Assessment and Plan: Chronic diastolic CHF. It appears that she had been non compliant with her dietary restrictions and medications. Echo on 06/16/20 showed EF of 55-60% with abnormal LV diastolic function. Diuretics have been held per cardiology and nephrology recommendations in light of acute kidney injury. Appreciate cardiology and nephrology input. Cardiology has signed off while renal function is being evaluated - case discussed with Tiffany Vazquez NP on 06/26. Digoxin on hold per cardiology. Daily weights, heart healthy diet, and strict I&O monitoring. Elevate extremities. <AAKASH Zambrano-C - Last Filed: 06/27/20 11:55> (4) Hyperkalemia: Code(s): E87.5 - Hyperkalemia <AAKASH Zambrano-C - Last Filed: 06/27/20 11:55> Status: Acute <AAKASH Zambrano-C - Last Filed: 06/27/20 11:55> Assessment and Plan: Secondary to kidney disease. Potassium elevated at 5.8 on 06/25/20 and patient did receive PO potassium supplement at that time. Therefore, potassium lowering therapy initiated. She received calcium gluconate, insulin and dextrose, and IV bicarb with minimal improvement in potassium. Potassium increased to 6.[address] morning[address]iscuss[address] with Dr. Porras this morning. She has
[2020-06-27 11:09] LABS: Hepatitis B Surface Antigen Negative (Negative)
[2020-06-27 11:18] LABS: Hepatitis B Surface Anti Res Negative; Hepatitis C Virus Antibody Negative (Negative)
--- NOTE | 2020-06-27 11:38 | PC.NURSE ---
This patient, Kylee Brand, was received from [facility] on 06/27/20 at 0852. Patient/family oriented to unit policies and routines. Report received from Hannah REYES
--- NOTE | 2020-06-27 11:46 | PM.EVENT ---
Event Note Event Note Event Note: I discussed the case at length with Kev, her . It turns out that he is in the hospital as well. We discussed the symptoms and the labs leading to the suggestion that we should do dialysis. We discussed the risks benefits alternatives and process of dialysis. He agrees to proceed.
[2020-06-27 12:31] LABS: Alveolar/Arterial O2 Gradient 206.4 mmHg; Base Excess ABG -4.9 mEq/l (+/-2.0); Fractional Inspired Oxygen 50 %; HCO3 ABG 22.5 mEq/l (22.0-26.0); Oxygen Content ABG 13.9 %vol (16.0-22.0); Oxygen Saturation ABG 95.5 % (95.0-100.0); Oxyhemoglobin 93.6 % THb (90.0-100.0); PCO2 ABG 52.7 mmHg (35.0-45.0); PO2 ABG 90.8 mmHg (80.0-100.0); PO2 FiO2 Ratio Arterial Blood 1.82 %; Total Hemoglobin 10.5 g/dL (12.0-18.0)
[2020-06-27 12:32] LABS: Device NON-INVASIVE VENT; Non-Invasive Expiratory Pressure 6 CMH2O; Non-Invasive Inspiratory Pressure 14 CMH2O; Non-Invasive Vent Rate 10 /MIN; Site Drawn LEFT BRACHIAL; pH ABG 7.249 (7.350-7.450)
--- NOTE | 2020-06-27 13:26 | PC.NURSE ---
All assessments and administered medications from 0700 06/27/20 until 0845, when the patient was transfered to IMU, were performed by Hannah Vega RN.
[2020-06-27 13:42] LABS: Glucose Point of Care 169 (65-105)
--- NOTE | 2020-06-27 14:16 | PM.CNGS ---
Assessment and Plan Assessment and plan (1) Acute kidney injury superimposed on chronic kidney disease: Code(s): N17.9 - Acute kidney failure, unspecified; N18.9 - Chronic kidney disease, unspecified Status: Acute Assessment and Plan: I have reviewed her chest x-rays and done brief review of the chart. Will plan to proceed with Cole dialysis catheter placement at bedside with ultrasound guidance. Once the procedure is done and adequate placement was confirmed on chest x-ray, she may begin hemodialysis. (2) Chronic diastolic CHF (congestive heart failure): Code(s): I50.32 - Chronic diastolic (congestive) heart failure Status: Acute (3) COVID-19: Code(s): U07.1 - COVID-19 Status: Acute (4) Hyperkalemia: Code(s): E87.5 - Hyperkalemia Status: Acute History of Present Illness Consult details Consult date: 06/27/20 Requesting physician: Marcelo Porras MD Narrative: This is a 65-year-old woman who I am asked to see for urgent dialysis catheter insertion. She was admitted on 06/23/2020 with congestive heart failure and worsening acute on chronic renal failure. She is more fluid overloaded no and is also showing signs of electrolyte imbalances with hyperkalemia. She is obtunded and history is obtained from the chart. Nephrology has been following patient and she has not responded well to diuresis. She is now in need of hemodialysis. Review of Systems Review of Systems: ROS unobtainable: Yes unobtainable due to mental status PMFSH Past Medical History Medical History Afib Benign hypertension CHF (congestive heart failure) COPD (chronic obstructive pulmonary disease) DM2 (diabetes mellitus, type 2) Generalized anxiety disorder Ileostomy present Nicotine dependence Non-small cell lung cancer (NSCLC) Obesity, morbid, BMI 50 or higher On home oxygen therapy Peripheral neuropathy PVD (peripheral vascular disease) Sleep apnea with use of continuous positive airway pressure (CPAP) Surgical History Surgical History H/O of hysterectomy with bilateral oophorectomy (~2001) History of cholecystectomy History of colectomy (~2010) for diverticulitis and then later reversed History of knee replacement procedure of left knee History of knee replacement procedure of right knee Family History Family History Father Lung cancer Mother Lung cancer TIA (transient ischemic attack) Social History Social History Social History: The patient is and lives with her . He is a durable power patent attorney for healthcare. The patient is a full code. She had 2 children. 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 She denies any alcohol marijuana or illicit drug use. Smoking packs per day: 2 Smoking cigarettes per day: 40.0 Years smoked: 40 Smoking pack-years: 80.00 Smoking status: Former smoker Tobacco type: cigarettes Second hand tobacco smoke exposure: Yes Smoking end date: 12/16/19 Alcohol intake: never Substance use: never Substance use type: does not use Gender identity (if verbalized by the patient): Female Spiritual care concerns: No Meds Home Medications and Allergies Home Medications Medication Instructions Recorded Confirmed Type apixaban 5 mg tablet 5 mg PO BID 08/05/19 06/23/20 History diltiazem HCl 240 mg 240 mg PO DAILY 08/05/19 06/23/20 History capsule,extended release 24 hr eszopiclone 1 mg tablet 1 mg PO .qhs #30 tablet 05/08/20 06/23/20 Rx allopurinol 300 mg PO DAILY 05/22/20 06/23/20 History ipratropium-albuterol 3 ml INHALATION Q6H PRN 05/22/20 06/23/20 History ondansetron 8 mg BYMOUTH PRN PRN 05/22/20 06/23/20 History oxycodone 5 mg PO Q6H PRN 05/22/20 06/23/20 History acetam
--- NOTE | 2020-06-27 14:25 | PM.PROC ---
Procedure Note - Detailed Date of procedure: 06/27/20 Pre-op diagnosis: Acute Renal Failure, CHF Post-op diagnosis: same Procedure performed: Right IJ Rajan Dialysis Catheter Placement with U/S Guidance Description of procedure: Procedure, risks, benefits, and alternatives were discussed with the patient. Written consent was obtained and placed in chart prior to procedure. Patient was placed supine in hospital bed and placed in slight Trendelenburg position. Time-out was done to confirm patient and procedure. Her right neck and chest area was prepped and draped in sterile fashion using chlorhexidine prep. SonoSite ultrasound was used to identify the right internal jugular vein. 1% lidocaine was infiltrated directly over this area. An 18 gauge introducer needle was advanced under ultrasound guidance directly into the right internal jugular vein. Dark nonpulsatile blood was aspirated. A 0.035 in guidewire was then advanced through the needle. The guidewire advanced smoothly. The needle was then withdrawn leaving the guidewire in place. A small rey incision was made at the insertion site using an 11 blade scalpel. The blue dilators were then advanced over the guidewire to dilate the vessel. The 12 [place] triple lumen 16 cm dialysis catheter was then advanced over the guidewire until it was in place. The guidewire was removed. All 3 lumens were then aspirated and flushed with sterile saline. All 3 lumens function with ease. Caps were placed over the lumens. A stat lock was placed at the insertion site and the catheter was secured in place using 3 0 nylon simple interrupted sutures. A Tegaderm dressing was then applied over top. The patient was then sat up in bed and chest x-ray was ordered to confirm placement. Implants: 12 [place] 16 cm triple-lumen dialysis catheter Anesthesia: local ( 1% lidocaine) Surgeon: Antonino Ocasio DO Estimated blood loss (mL): 5 Complications: No immediate complications Condition: stable Disposition: floor Findings: Ultrasound guidance was used to identify the right internal jugular vein. This was visualized as a compressible vessel just lateral to the pulsatile carotid artery. The vein was accessed with an 18 gauge introducer needle under ultrasound guidance. The guidewire advanced smoothly. X-ray was ordered to confirm placement.
[2020-06-27 15:12] LABS: Anion Gap 10 mmol/L (8-16); Blood Urea Nitrogen 99 mg/dL (7-17); Calcium 7.8 mg/dL (8.4-10.2); Carbon Dioxide 26 mmol/L (22-30); Chloride 97 mmol/L (98-107); Estimated CRCL calculation 13 ml/min; Estimated Glomerular Filt Rate 7; Glucose 191 mg/dL (65-105); Potassium 6.6 mmol/L (3.4-5.0); Sodium 133 mmol/L (137-145)
[2020-06-27 17:35] LABS: Glucose Point of Care 136 (65-105)
[2020-06-27] MEDS: LORazepam INJ (*CRX) 2 MG/ML VIAL 0.5 MG IV PUSH (18:10)
--- NOTE | 2020-06-27 19:10 | PC.NURSE ---
Patient continued to pull at her peripheral IV and continuously attempting to pull out her Rajan Catheter placed for emergency Dialysis. Patient was able to rip out one of the two stitches in place at the Rajan Catheter Insertion site. Manual pressure applied to stop the bleeding and dressing was changed. 0.5mg of IV Ativan was administered with no change is agitation. came and seen the patient to assess the severity of her agitation prior to ordering physical restraints. Will continue to monitor closely and per protocol.
[2020-06-27 20:21] LABS: Alveolar/Arterial O2 Gradient 152.4 mmHg; Base Excess ABG -1.8 mEq/l (+/-2.0); Device NON-INVASIVE VENT; Fractional Inspired Oxygen 40 %; HCO3 ABG 23.7 mEq/l (22.0-26.0); Modified Allen's Test Pass; Oxygen Content ABG 11.8 %vol (16.0-22.0); Oxygen Saturation ABG 95.6 % (95.0-100.0); PCO2 ABG 43.7 mmHg (35.0-45.0); PO2 ABG 82.5 mmHg (80.0-100.0); PO2 FiO2 Ratio Arterial Blood 2.06 %; Site Drawn LEFT RADIAL; Total Hemoglobin 8.9 g/dL (12.0-18.0); pH ABG 7.352 (7.350-7.450)
[2020-06-27 20:22] LABS: Non-Invasive Expiratory Pressure 6 CMH2O; Non-Invasive Inspiratory Pressure 16 CMH2O; Non-Invasive Vent Rate 10 /MIN
[2020-06-27] MEDS: TOLNAFTATE 1% POWDER 45 GM BTL 1 APPLIC TOPICAL (21:28)
[2020-06-27 21:46] LABS: Glucose Point of Care 159 (65-105)
[2020-06-28] VITALS (21 sets, daily range): BP systolic 90–115; BP diastolic 51–95; PULSE 77–125; RESP 12–784; TEMP 35.6–36.2; O2SAT 92–99
--- NOTE | 2020-06-28 02:10 | PC.NURSE ---
PLASMA WAS VERIFIED AT 0120 WITH CLARY KIRKPATRICK RN. [employer] CLOSED OUT WHILE I WAS INSIDE THE ISOLATION ROOM AND KEPT REJECTING MY PASSWORD BEFORE CLOSING OUT AND NOT SAVING DOCUMENTATION.
[2020-06-28] MEDS: ACETAMINOPHEN/CODEINE (*CRX) 300/30 MG TABLET 1 TAB PO (02:44)
[2020-06-28 03:18] LABS: Creatinine Urine 179.1 mg/dL; Total Protein Urine Random 10 mg/dL; Ur Ttl Prot Creatinine Ratio 0.06 mg/mg (0-0.20)
[2020-06-28 04:00] LABS: Sodium Urine Random < 5 meq/L
[2020-06-28 05:13] LABS: Hematocrit 23.4 % (37.0-47.0); Hemoglobin 7.2 g/dL (12.0-15.0); Immature Granulocyte Absolute 0.01 K/mm3 (0.00-0.031); Immature Granulocyte Percent A 0.3 % (0-0.5); Immature Platelet Fraction Pct 3.3 % (0.9-11.2); Lymphocytes Absolute Auto 0.19 K/mm3 (0.9-3.2); Lymphocytes Percent Auto 6.3 % (18.3-44.2); Mean Corpuscular HGB Conc 30.8 g/dl (32-36); Mean Corpuscular Hemoglobin 33.3 pg (26-34); Mean Corpuscular Volume 108.3 fl (80-100); Mean Platelet Volume 11.7 fl (7.4-10.4); Monocytes Absolute Auto 0.1 K/mm3 (0.1-0.6); Neutrophils Absolute Auto 2.7 K/mm3 (1.3-6.7); Neutrophils Percent Auto 90.4 % (45.5-73.1); Platelet Count Result 66 k/mm3 (150-375); Red Blood Count 2.16 M/mm3 (4.2-5.4); Red Cell Distribution Width 21.1 % (11.5-14.5)
[2020-06-28 05:28] LABS: Anion Gap 7 mmol/L (8-16); Blood Urea Nitrogen 77 mg/dL (7-17); Calcium 7.8 mg/dL (8.4-10.2); Carbon Dioxide 29 mmol/L (22-30); Chloride 98 mmol/L (98-107); Estimated CRCL calculation 16 ml/min; Estimated Glomerular Filt Rate 9; Glucose 162 mg/dL (65-105); Phosphorus 6.2 mg/dL (2.5-4.5); Potassium 5.2 mmol/L (3.4-5.0); Sodium 134 mmol/L (137-145)
[2020-06-28 05:44] LABS: Alveolar/Arterial O2 Gradient 113.8 mmHg; Base Excess ABG 1.8 mEq/l (+/-2.0); Device NON-INVASIVE VENT; Fractional Inspired Oxygen 35 %; HCO3 ABG 27.5 mEq/l (22.0-26.0); Modified Allen's Test Pass; Non-Invasive Expiratory Pressure 6 CMH2O; Non-Invasive Inspiratory Pressure 16 CMH2O; Non-Invasive Vent Rate 10 /MIN; Oxygen Content ABG 10.8 %vol (16.0-22.0); Oxygen Saturation ABG 95.1 % (95.0-100.0); Oxyhemoglobin 92.9 % THb (90.0-100.0); PCO2 ABG 49.2 mmHg (35.0-45.0); PO2 ABG 78.6 mmHg (80.0-100.0); PO2 FiO2 Ratio Arterial Blood 2.25 %; Site Drawn LEFT RADIAL; Total Hemoglobin 8.2 g/dL (12.0-18.0); pH ABG 7.366 (7.350-7.450)
[2020-06-28 05:49] LABS: Lactate Dehydrogenase 234 U/L (313-618); Magnesium 2.2 mg/dL (1.6-2.3)
[2020-06-28 06:25] LABS: Glucose Point of Care 175 (65-105)
--- NOTE | 2020-06-28 08:30 | P.PNNP_ITS ---
Progress Note: A&P Assessment and Plan (1) NILSON (acute kidney injury): Code(s): N17.9 - Acute kidney failure, unspecified Status: Acute Assessment and Plan: * The patient has acute kidney injury. * Renal ultrasound shows a smaller left kidney than the right. * The patient is improved since her dialysis yesterday. * Will need another treatment tomorrow (2) CKD (chronic kidney disease): Code(s): N18.9 - Chronic kidney disease, unspecified Status: Chronic Assessment and Plan: * unclear what her baseline creatinine truely is * her creatinine has fluctuated to extremes since earlier this year * Will follow this along. * This makes it a little less likely that her kidney function will improve but I think she still has a good chance. (3) Chronic diastolic CHF (congestive heart failure): Code(s): I50.32 - Chronic diastolic (congestive) heart failure Status: Acute Assessment and Plan: * recent admission for volume overload requiring increased diuretic therapy * Echo showed good LV function, mitral valve calcification, and large left and right atria. * Cardiology following (4) Anemia: Code(s): D64.9 - Anemia, unspecified Status: Acute Assessment and Plan: * related to NILSON, CKD, and perhaps acute illness * Started Epogen (5) Lung cancer: Code(s): C34.90 - Malignant neoplasm of unspecified part of unspecified bronchus or lung Status: Acute Assessment and Plan: * on chemotherapy Subjective Date/time seen: 06/28/20 08:30 Interval history: Patient is awake. She is more interactive today. Twitching is vastly improved. Review of Systems Review of Systems: ROS unobtainable: Yes unobtainable due to medical condition Exam Narrative: Exam Narrative: General: Large female in NAD Heart: IRRR, normal S1 and S2; no rub Lungs: coarse breath sounds bilaterally Abdomen: soft, nontender, nondistended, positive bowel sounds Extremities: no cyanosis or clubbing; 1+ edema Skin: No rash or subcu nodules Neuro: Patient is more aware. Myoclonic jerking is much better. Objective Data Vital Signs Vital Signs: Vital Signs - 24 hr 06/27/20 09:00 06/27/20 10:19 06/27/20 11:08 Temperature Pulse Rate 94 Respiratory Rate 17 Blood Pressure Pulse Oximetry 90 90 94 06/27/20 12:00 06/27/20 14:01 06/27/20 15:07 Temperature 36.8 C 36.5 C Pulse Rate 76 83 102 H Respiratory Rate 24 H 16 20 Blood Pressure 154/121 H 140/54 L Pulse Oximetry 9 L 10 L 91 06/27/20 15:19 06/27/20 15:30 06/27/20 15:45 Temperature Pulse Rate 107 H 87 76 Respiratory Rate Blood Pressure 123/41 L 101/54 L 72/27 L Pulse Oximetry 06/27/20 15:50 06/27/20 16:00 06/27/20 16:05 Temperature 36.5 C Pulse Rate 98 82 108 H Respiratory Rate 16 24 H Blood Pressure 101/53 L 93/56 L 95/45 L Pulse Oximetry 98 06/27/20 16:15 06/27/20 16:30 06/27/20 16:45 Temperature Pulse Rate 115 H 90 94 Respiratory Rate Blood Pressure 94/44 L 112/90 110/75 Pulse Oximetry 06/27/20 17:00
--- NOTE | 2020-06-28 08:30 | PM.PNNEP ---
Progress Note: A&P Assessment and Plan (1) NILSON (acute kidney injury): Code(s): N17.9 - Acute kidney failure, unspecified Status: Acute Assessment and Plan: The patient has acute kidney injury. Renal ultrasound shows a smaller left kidney than the right. The patient is improved since her dialysis yesterday. Will need another treatment tomorrow (2) CKD (chronic kidney disease): Code(s): N18.9 - Chronic kidney disease, unspecified Status: Chronic Assessment and Plan: unclear what her baseline creatinine truely is her creatinine has fluctuated to extremes since earlier this year Will follow this along. This makes it a little less likely that her kidney function will improve but I think she still has a good chance. (3) Chronic diastolic CHF (congestive heart failure): Code(s): I50.32 - Chronic diastolic (congestive) heart failure Status: Acute Assessment and Plan: recent admission for volume overload requiring increased diuretic therapy Echo showed good LV function, mitral valve calcification, and large left and right atria. Cardiology following (4) Anemia: Code(s): D64.9 - Anemia, unspecified Status: Acute Assessment and Plan: related to NILSON, CKD, and perhaps acute illness Started Epogen (5) Lung cancer: Code(s): C34.90 - Malignant neoplasm of unspecified part of unspecified bronchus or lung Status: Acute Assessment and Plan: on chemotherapy Subjective Date/time seen: 06/28/20 08:30 Interval history: Patient is awake. She is more interactive today. Twitching is vastly improved. Review of Systems Review of Systems: ROS unobtainable: Yes unobtainable due to medical condition Exam Narrative: Exam Narrative: General: Large female in NAD Heart: IRRR, normal S1 and S2; no rub Lungs: coarse breath sounds bilaterally Abdomen: soft, nontender, nondistended, positive bowel sounds Extremities: no cyanosis or clubbing; 1+ edema Skin: No rash or subcu nodules Neuro: Patient is more aware. Myoclonic jerking is much better. Objective Data Vital Signs Vital Signs: Vital Signs - 24 hr 06/27/20 09:00 06/27/20 10:19 06/27/20 11:08 Temperature Pulse Rate 94 Respiratory Rate 17 Blood Pressure Pulse Oximetry 90 90 94 06/27/20 12:00 06/27/20 14:01 06/27/20 15:07 Temperature 36.8 C 36.5 C Pulse Rate 76 83 102 H Respiratory Rate 24 H 16 20 Blood Pressure 154/121 H 140/54 L Pulse Oximetry 9 L 10 L 91 06/27/20 15:19 06/27/20 15:30 06/27/20 15:45 Temperature Pulse Rate 107 H 87 76 Respiratory Rate Blood Pressure 123/41 L 101/54 L 72/27 L Pulse Oximetry 06/27/20 15:50 06/27/20 16:00 06/27/20 16:05 Temperature 36.5 C Pulse Rate 98 82 108 H Respiratory Rate 16 24 H Blood Pressure 101/53 L 93/56 L 95/45 L Pulse Oximetry 98 06/27/20 16:15 06/27/20 16:30 06/27/20 16:45 Temperature Pulse Rate 115 H 90 94 Respiratory Rate Blood Pressure 94/44 L 112/90 110/75 Pulse Oximetry 06/27/20 17:00 06/27/20 17:15 06/27/20 17:30 Temperature Pulse Rate 112 H 93 93 Respiratory Rate Blood Pressure 106/77 91/40 L 101/52 L Pulse Oximetry 06/27/20 17:35 06/27/20 17:43 06/27/20 20:00 Temperature 37.0 C 36.4 C Pulse Rate 78 102 H 108 H Respiratory Rate 21 H 22 H Blood Pressure 92/52 L 106/43 L 103/54 L Pulse Oximetry 94 06/27/20 20:10 06/27/20 23:10 06/28/20 00:00 Temperature 36.2 C L Pulse Rate 89 97 99 Respiratory Rate 16 16 20 Blood Pressure 101/55 L Pulse Oximetry 95 95 97 06/28/20 01:17 06/28/20 01:45 06/28/20 02:00 Temperature 36.1 C L 35.9 C L Pulse Rate 90 102 H 105 H Respiratory Rate 16 22 H 14 Blood Pressure 115/86 110/95 H Pulse Oximetry 95 92 98 06/28/20 02:45 06/28/20 03:00 06/28/20 04:00 Temperature 36.0 C L 36.2 C L Pulse Rate 99 104 H Respiratory Rate 13 16 Blood Pressure 90
[2020-06-28] MEDS: DEXAMETHASONE SOD PHOS INJ 4 MG/ML VIAL 6 MG IV PUSH (09:37)
[2020-06-28] MEDS: carvediloL 12.5 MG TABLET 37.5 MG PO ×2 (09:37→21:24)
[2020-06-28] MEDS: TOLNAFTATE 1% POWDER 45 GM BTL 1 APPLIC TOPICAL (09:40)
[2020-06-28] MEDS: LORATADINE 10 MG TABLET PO (09:40)
--- NOTE | 2020-06-28 10:45 | PM.IMPN ---
Progress Note: A&P Assessment and Plan (1) Acute and chronic respiratory failure: Code(s): J96.20 - Acute and chronic respiratory failure, unspecified whether with hypoxia or hypercapnia Status: Acute Assessment and Plan: Patietn with chronic respiratory failure with hypoxia on 5L at home. She has developed acute hypoxic and hypercarbic respiratory failure related to CHF complicated by COVID, COPD and lung CA. ABG 06/27 7.298/51/71 on HFNC. ABG today is better at 7.36/49/79 on BiPAP. Wean back to NC as tolerated. (2) Acute kidney injury superimposed on chronic kidney disease: Code(s): N17.9 - Acute kidney failure, unspecified; N18.9 - Chronic kidney disease, unspecified Status: Acute Assessment and Plan: Baseline appears to be quite variable, however recently creatinine was around 2.1. Upon presentation, creatinine was 4.58. Patient likely intravascularly dry secondary to diuresis although she appears fluid overloaded. Renal ultrasound showed mild atrophy of the kidneys with no hydronephrosis. BUN and Cr increased to 93 and 6 respectfully on 06/27/20. Patient also became encephalopathic felt related to the uremia with hyperkalemia. Cole catheter placed on 06/27 and patient underwent hemodialysis. BUN creatinine are better today. Potassium down to 5.2. Mentation has improved dramatically. Continue dialysis to control fluid status. Appreciate Nephrology input. Continue to hold on diuresis. Monitor renal function closely. Renally dose medications and avoid nephrotoxins. (3) COVID-19: Code(s): U07.1 - COVID-19 Status: Acute Assessment and Plan: Tested positive on 06/24/20. No true onset of symptoms as patient was tested due to close contact with known positive individual. CXR 06/23 showed mild infiltrates at the lung bases and CHF. IV dexamethasone started 06/26/20. She is not a candidate for Remdesivir given her kidney failure. She has a baseline O2 requirement of 5L. Increased to 15L O2 and now requiring BiPAP to maintain adequate O2 sats. Attempt to wean off BiPAP today. Search [employer]anner has been made aware. Trend acute phase reactants. Supportive care to include bronchodilators, expectorants, and antipyretics. Continue isolation precautions. (4) CHF (congestive heart failure): Qualifiers: Heart failure chronicity: acute on chronic Heart failure type: unspecified Qualified Code(s): I50.9 - Heart failure, unspecified Code(s): I50.9 - Heart failure, unspecified Status: Inactive Assessment and Plan: Chronic diastolic CHF. It appears that she had been non compliant with her dietary restrictions and medications. Echo on 06/16/20 showed EF of 55-60% with abnormal LV diastolic function. Diuretics held per cardiology and nephrology recommendations in light of acute kidney injury. Appreciate cardiology and nephrology input. HD to control fluid status. (5) Hyperkalemia: Code(s): E87.5 - Hyperkalemia Status: Acute Assessment and Plan: Secondary to kidney disease. Potassium elevated at 5.8 on 06/25/20 and patient did receive PO potassium supplement at that time. Therefore, potassium lowering therapy was initiated. Potassium climbed to 6.6 before dialysis. She tolerated HD well. Potassium today at 5.2. Low potassium diet when off BiPAP. Monitor electrolytes closely (6) Altered mental status: Code(s): R41.82 - Altered mental status, unspecified Status: Acute Assessment and Plan: AMS 2nd to acute metabolic encephalopathy related to renal failure. Patient alert and oriented today. Follow. (7) DM2 (diabetes mellitus, type 2): Code(s): E11.9 - Type 2 diabetes mellitus without complications Status: Acute Assessment and Plan: A1c is 6.0. Glucose reviewed on 06/28 Blood sugars have been generally well controlled. Continue Accu-Cheks ACHS, SSI, and hypoglycemia protocol. Metfor
[2020-06-28] MEDS: EUCERIN CREAM 120 GM JAR 1 APPLIC TOPICAL (13:28)
[2020-06-28] MEDS: INSULIN ASPART (*BKC) 100 UNITS/ML SUB-Q (13:28)
[2020-06-28 13:50] LABS: Glucose Point of Care 218 (65-105)
[2020-06-28] MEDS: APIXABAN 5 MG TABLET PO (18:11)
[2020-06-28] MEDS: LORazepam INJ (*CRX) 2 MG/ML VIAL 0.5 MG IM (18:16)
[2020-06-28] MEDS: MELATONIN 5 MG TABLET PO (21:25)
[2020-06-28 22:16] LABS: Glucose Point of Care 206 (65-105)
[2020-06-29] VITALS (36 sets, daily range): BP systolic 72–136; BP diastolic 35–87; PULSE 69–111; RESP 12–462; TEMP 35.4–37; O2SAT 92–98
[2020-06-29] MEDS: TOLNAFTATE 1% POWDER 45 GM BTL 1 APPLIC TOPICAL ×3 (03:42→21:49)
[2020-06-29 05:31] LABS: Hematocrit 24.4 % (37.0-47.0); Hemoglobin 7.5 g/dL (12.0-15.0); Immature Granulocyte Absolute 0.02 K/mm3 (0.00-0.031); Immature Granulocyte Percent A 0.5 % (0-0.5); Immature Platelet Fraction Pct 3.4 % (0.9-11.2); Lymphocytes Absolute Auto 0.19 K/mm3 (0.9-3.2); Lymphocytes Percent Auto 5.1 % (18.3-44.2); Mean Corpuscular HGB Conc 30.7 g/dl (32-36); Mean Corpuscular Hemoglobin 32.9 pg (26-34); Mean Platelet Volume 11.9 fl (7.4-10.4); Monocytes Absolute Auto 0.1 K/mm3 (0.1-0.6); Monocytes Percent Auto 2.4 % (2.6-8.5); Neutrophils Absolute Auto 3.4 K/mm3 (1.3-6.7); Platelet Count Result 66 k/mm3 (150-375); Red Blood Count 2.28 M/mm3 (4.2-5.4); Red Cell Distribution Width 20.5 % (11.5-14.5); White Blood Count 3.7 K/mm3 (4.5-10.0)
[2020-06-29 05:47] LABS: Albumin Level 3.3 g/dL (3.5-5.1); Anion Gap 8 mmol/L (8-16); Blood Urea Nitrogen 99 mg/dL (7-17); CRP 1.6 mg/dL (<1.0); Calcium 8.1 mg/dL (8.4-10.2); Carbon Dioxide 30 mmol/L (22-30); Chloride 98 mmol/L (98-107); Estimated CRCL calculation 15 ml/min; Estimated Glomerular Filt Rate 9; Glucose 181 mg/dL (65-105); Lactate Dehydrogenase 292 U/L (313-618); Phosphorus 7.3 mg/dL (2.5-4.5); Potassium 5.9 mmol/L (3.4-5.0); Sodium 136 mmol/L (137-145)
[2020-06-29] MEDS: carvediloL 12.5 MG TABLET 37.5 MG PO ×2 (08:43→21:41)
[2020-06-29] MEDS: DEXAMETHASONE SOD PHOS INJ 4 MG/ML VIAL 6 MG IV PUSH (08:44)
[2020-06-29] MEDS: EUCERIN CREAM 120 GM JAR 1 APPLIC TOPICAL (08:44)
[2020-06-29 09:13] LABS: Glucose Point of Care 184 (65-105)
--- NOTE | 2020-06-29 10:11 | PM.PNNEP ---
Progress Note: A&P Assessment and Plan (1) NILSON (acute kidney injury): Code(s): N17.9 - Acute kidney failure, unspecified Status: Acute Assessment and Plan: The patient has acute kidney injury. Renal ultrasound shows a smaller left kidney than the right. The patient is still somewhat confused. She pulled her catheter out yesterday. Orders are in to get a new one placed. (2) CKD (chronic kidney disease): Code(s): N18.9 - Chronic kidney disease, unspecified Status: Chronic Assessment and Plan: unclear what her baseline creatinine truely is her creatinine has fluctuated to extremes since earlier this year Will follow this along. This makes it a little less likely that her kidney function will improve but I think she still has a good chance. (3) Chronic diastolic CHF (congestive heart failure): Code(s): I50.32 - Chronic diastolic (congestive) heart failure Status: Acute Assessment and Plan: recent admission for volume overload requiring increased diuretic therapy Echo showed good LV function, mitral valve calcification, and large left and right atria. Cardiology has been seeing the patient (4) Anemia: Code(s): D64.9 - Anemia, unspecified Status: Acute Assessment and Plan: related to NILSON, CKD, and perhaps acute illness Started Epogen (5) Lung cancer: Code(s): C34.90 - Malignant neoplasm of unspecified part of unspecified bronchus or lung Status: Acute Assessment and Plan: on chemotherapy Subjective Date/time seen: 06/29/20 10:11 Interval history: Patient is awake. She is upset because she can't have any water. confused still. Review of Systems Cardiovascular: Cardiovascular: Reports no additional cardiovascular complaints Respiratory: Respiratory: Reports no additional respiratory complaints Gastrointestinal: Gastrointestinal: Reports no additional gastrointestinal complaints Genitourinary: Genitourinary: Reports no additional female genitourinary complaints Exam Narrative: Exam Narrative: General: Large female in NAD Heart: IRRR, normal S1 and S2; no rub Lungs: coarse breath sounds bilaterally Abdomen: soft, nontender, nondistended, positive bowel sounds Extremities: no cyanosis or clubbing; 1+ edema Skin: No rash or subcu nodules Neuro: Patient is more aware but still confused. myoclonus is better. Objective Data Vital Signs Vital Signs: Vital Signs - 24 hr 06/28/20 10:14 06/28/20 10:20 06/28/20 12:00 Temperature 35.6 C L Pulse Rate 93 Respiratory Rate 20 Blood Pressure 110/59 L Pulse Oximetry 96 96 96 06/28/20 16:00 06/28/20 16:05 06/28/20 20:00 Temperature 35.8 C L 36.1 C L Pulse Rate 102 H 83 102 H Respiratory Rate 26 H 15 16 Blood Pressure 105/58 L 107/60 Pulse Oximetry 93 92 95 06/28/20 21:24 06/28/20 22:03 06/28/20 23:49 Temperature 36.2 C L Pulse Rate 94 83 77 Respiratory Rate 784 H 12 Blood Pressure 97/58 L Pulse Oximetry 93 94 06/28/20 23:50 06/29/20 00:00 06/29/20 02:00 Temperature Pulse Rate 79 85 Respiratory Rate Blood Pressure Pulse Oximetry 92 06/29/20 02:33 06/29/20 03:41 06/29/20 04:00 Temperature 36.4 C L Pulse Rate 84 104 H Respiratory Rate 462 H 12 Blood Pressure 105/56 L Pulse Oximetry 94 92 96 06/29/20 06:00 06/29/20 08:04 06/29/20 08:43 Temperature 36.4 C L Pulse Rate 88 95 89 Respiratory Rate 16 Blood Pressure 98/60 L Pulse Oximetry 96 06/29/20 09:15 Temperature Pulse Rate Respiratory Rate Blood Pressure Pulse Oximetry 93 Intake/Output Intake/Output: Intake & Output 06/26/20 06/27/20 06/28/20 06/29/20 23:59 23:59 23:59 23:59 Intake Total 960 100 468 Output Total 350 450 150 Balance 960 -250 18 -150 Meds/Results Medications: Active Medications Generic Name Dose Route Start Last Admin Trade Name Freq PRN Reason Stop
--- NOTE | 2020-06-29 11:41 | PM.PROC ---
Procedure Note - Detailed Date of procedure: 06/29/20 Pre-op diagnosis: Acute Renal Failure, CHF Post-op diagnosis: same Procedure performed: Left IJ Rajan Dialysis Catheter Placement with U/S Guidance Description of procedure: Procedure, risks, benefits, and alternatives were discussed with the patient. Written consent was obtained and placed in chart prior to procedure. Patient was placed supine in hospital bed and placed in slight Trendelenburg position. Time-out was done to confirm patient and procedure. Her left neck and chest area was prepped and draped in sterile fashion using chlorhexidine prep. SonoSite ultrasound was used to identify the left internal jugular vein. 1% lidocaine was infiltrated directly over this area. An 18 gauge introducer needle was advanced under ultrasound guidance directly into the left internal jugular vein. Dark nonpulsatile blood was aspirated. A 0.035 in guidewire was then advanced through the needle. The guidewire advanced smoothly. The needle was then withdrawn leaving the guidewire in place. A small rey incision was made at the insertion site using an 11 blade scalpel. The blue dilators were then advanced over the guidewire to dilate the vessel. The 12 [place] triple lumen 20 cm dialysis catheter was then advanced over the guidewire until it was in place. The guidewire was removed. All 3 lumens were then aspirated and flushed with sterile saline. All 3 lumens function with ease. Caps were placed over the lumens. A stat lock was placed at the insertion site and the catheter was secured in place using 3 0 nylon simple interrupted sutures. A Tegaderm dressing was then applied over top. The patient was then sat up in bed and chest x-ray was ordered to confirm placement. Implants: 12 [place] Citizen 20 cm triple-lumen dialysis catheter Anesthesia: local ( 1% lidocaine) Surgeon: Antonino Ocasio DO Estimated blood loss (mL): 5 Complications: No immediate complications Condition: stable Disposition: floor Findings: Ultrasound guidance was used to identify the left internal jugular vein. This was visualized as a compressible vessel just lateral to the pulsatile carotid artery. The vein was accessed with an 18 gauge introducer needle under ultrasound guidance. The guidewire advanced smoothly. X-ray was ordered to confirm placement.
[2020-06-29 11:55] LABS: Glucose Point of Care 290 (65-105)
[2020-06-29] MEDS: INSULIN ASPART (*BKC) 100 UNITS/ML SUB-Q (12:35)
[2020-06-29] MEDS: APIXABAN 5 MG TABLET PO ×2 (12:36→19:13)
[2020-06-29 18:31] LABS: Glucose Point of Care 200 (65-105)
--- NOTE | 2020-06-29 20:04 | PM.IMPN ---
Progress Note: A&P Assessment and Plan (1) Acute and chronic respiratory failure: Code(s): J96.20 - Acute and chronic respiratory failure, unspecified whether with hypoxia or hypercapnia Status: Acute Assessment and Plan: Patient with chronic respiratory failure with hypoxia on 5L at home. She has developed acute hypoxic and hypercarbic respiratory failure related to CHF complicated by COVID, COPD and lung CA. ABG 06/27 7.29/51/71 on HFNC. ABG yesterday is better at 7.36/49/79 on BiPAP. Wean back to NC at 10L. Wean down as she tolerates. (2) Acute kidney injury superimposed on chronic kidney disease: Code(s): N17.9 - Acute kidney failure, unspecified; N18.9 - Chronic kidney disease, unspecified Status: Acute Assessment and Plan: Baseline Cr appears to be quite variable, however recently creatinine was around 2.1. Upon presentation, creatinine was 4.58. Patient likely intravascularly dry secondary to diuresis although she appears fluid overloaded. Renal ultrasound showed mild atrophy of the kidneys with no hydronephrosis. BUN and Cr increased to 93 and 6 respectfully on 06/27/20. Patient also became encephalopathic felt related to the uremia with hyperkalemia. Cole catheter placed on 06/27 and patient underwent hemodialysis. Patient more confused and removed her Cole 06/28. Cole replaced today and she is to undergo HD today. Mentation has improved with prior HD so will continue HD on a mor regular basis in hopes of improving her mental status. Continue dialysis to control fluid status. Appreciate Nephrology input. Continue to hold on diuretics. Monitor renal function closely. Renally dose medications and avoid nephrotoxins. (3) COVID-19: Code(s): U07.1 - COVID-19 Status: Acute Assessment and Plan: Tested positive on 06/24/20. No true onset of symptoms as patient was tested due to close contact with known positive individual. CXR 06/23 showed mild infiltrates at the lung bases and CHF. IV dexamethasone started 06/26/20. She is not a candidate for Remdesivir given her kidney failure. She has a baseline O2 requirement of 5L. Increased to 15L O2 and now downt to 10L to maintain adequate O2 sats. Trend acute phase reactants. Supportive care to include bronchodilators, expectorants, and antipyretics. Continue isolation precautions. (4) CHF (congestive heart failure): Qualifiers: Heart failure chronicity: acute on chronic Heart failure type: unspecified Qualified Code(s): I50.9 - Heart failure, unspecified Code(s): I50.9 - Heart failure, unspecified Status: Inactive Assessment and Plan: Chronic diastolic CHF. It appears that she had been non compliant with her dietary restrictions and medications. Echo on 06/16/20 showed EF of 55-60% with abnormal LV diastolic function. Diuretics held. Appreciate cardiology and nephrology input. HD to control fluid status. (5) Hyperkalemia: Code(s): E87.5 - Hyperkalemia Status: Acute Assessment and Plan: Secondary to kidney disease. Potassium elevated at 5.8 on 06/25/20 and patient did receive PO potassium supplement at that time. Therefore, potassium lowering therapy was initiated. Potassium climbed to 6.6 before dialysis. She tolerated HD well. Potassium 5.2 yesterday and was unable to have HD. Potassium 5..9 today with plans for HD. Continue low potassium diet. Monitor electrolytes closely (6) Altered mental status: Code(s): R41.82 - Altered mental status, unspecified Status: Acute Assessment and Plan: AMS 2nd to acute metabolic encephalopathy related to renal failure. Patient alert but confused today. If no improvement with HD, consider MRI brain since she does have lung CA. Follow. (7) DM2 (diabetes mellitus, type 2): Code(s): E11.9 - Type 2 diabetes mellitus without complications Status: Acute Assessment and Moises
[2020-06-29 20:54] LABS: Glucose Point of Care 172 (65-105)
[2020-06-29] MEDS: MELATONIN 5 MG TABLET PO (21:41)
[2020-06-30] VITALS (20 sets, daily range): BP systolic 94–113; BP diastolic 50–72; PULSE 68–105; RESP 11–24; TEMP 36.1–37.1; O2SAT 92–99; BMI 60.0
[2020-06-30 04:12] LABS: Immature Granulocyte Absolute 0.03 K/mm3 (0.00-0.031); Immature Granulocyte Percent A 0.8 % (0-0.5); Immature Platelet Fraction Pct 4.1 % (0.9-11.2); Lymphocytes Absolute Auto 0.18 K/mm3 (0.9-3.2); Lymphocytes Percent Auto 5.1 % (18.3-44.2); Mean Corpuscular HGB Conc 31.8 g/dl (32-36); Mean Corpuscular Hemoglobin 33.2 pg (26-34); Mean Corpuscular Volume 104.3 fl (80-100); Mean Platelet Volume 11.5 fl (7.4-10.4); Monocytes Absolute Auto 0.1 K/mm3 (0.1-0.6); Monocytes Percent Auto 2.8 % (2.6-8.5); Neutrophils Absolute Auto 3.2 K/mm3 (1.3-6.7); Neutrophils Percent Auto 91.3 % (45.5-73.1); Platelet Count Result 51 k/mm3 (150-375); Red Blood Count 2.11 M/mm3 (4.2-5.4); Red Cell Distribution Width 20.3 % (11.5-14.5); White Blood Count 3.5 K/mm3 (4.5-10.0)
[2020-06-30 04:57] LABS: Alanine Aminotransferase 13 U/L (4-35); Albumin Level 3.1 g/dL (3.5-5.1); Alkaline Phosphatase 102 U/L (38-126); Anion Gap 6 mmol/L (8-16); Aspartate Amino Transferase 31 U/L (14-36); Bilirubin,Total 0.7 mg/dL (0.2-1.3); Blood Urea Nitrogen 59 mg/dL (7-17); Calcium 7.9 mg/dL (8.4-10.2); Carbon Dioxide 34 mmol/L (22-30); Chloride 95 mmol/L (98-107); Estimated CRCL calculation 26 ml/min; Estimated Glomerular Filt Rate 16; Glucose 164 mg/dL (65-105); Magnesium 2.1 mg/dL (1.6-2.3); Phosphorus 4.9 mg/dL (2.5-4.5); Potassium 4.8 mmol/L (3.4-5.0); Sodium 135 mmol/L (137-145)
--- NOTE | 2020-06-30 07:02 | P.PNNP_ITS ---
Progress Note: A&P Assessment and Plan (1) NILSON (acute kidney injury): Code(s): N17.9 - Acute kidney failure, unspecified Status: Acute Assessment and Plan: * The patient has acute kidney injury. * Renal ultrasound shows a smaller left kidney than the right. * The patient is still confused. * new catheter in. she had HD yesterday. * will tx tomorrow again unless creatinine is down. (2) CKD (chronic kidney disease): Code(s): N18.9 - Chronic kidney disease, unspecified Status: Chronic Assessment and Plan: * unclear what her baseline creatinine truly is * her creatinine has fluctuated to extremes since earlier this year * Will follow this along. * follow for recovery (3) Chronic diastolic CHF (congestive heart failure): Code(s): I50.32 - Chronic diastolic (congestive) heart failure Status: Acute Assessment and Plan: * recent admission for volume overload requiring increased diuretic therapy * Echo showed good LV function, mitral valve calcification, and large left and right atria. * Cardiology has been seeing the patient (4) Anemia: Code(s): D64.9 - Anemia, unspecified Status: Acute Assessment and Plan: * related to NILSON, CKD, and perhaps acute illness * Started Epogen (5) Lung cancer: Code(s): C34.90 - Malignant neoplasm of unspecified part of unspecified bronchus or lung Status: Acute Assessment and Plan: * on chemotherapy Subjective Date/time seen: 06/30/20 15:49 Interval history: Seen at 7am today Patient is awake. more conversive and together today. no sob or cp. more comfortable todau confused still, couldn't name [facility] and thought it was 2011. Review of Systems Review of Systems: ROS unobtainable: Yes unobtainable due to medical condition Cardiovascular: Cardiovascular: Reports no additional cardiovascular complaints Respiratory: Respiratory: Reports no additional respiratory complaints Gastrointestinal: Gastrointestinal: Reports no additional gastrointestinal complaints Genitourinary: Genitourinary: Reports no additional female genitourinary complaints Exam Narrative: Exam Narrative: General: Large female in NAD Heart: IRRR, normal S1 and S2; no rub Lungs: coarse breath sounds bilaterally Abdomen: soft, nontender, nondistended, positive bowel sounds Extremities: no cyanosis or clubbing; 1+ edema Skin: No rash or subcu nodules Neuro: Patient is more aware but still confused. myoclonus is better but still present. Objective Data Vital Signs Vital Signs: Vital Signs - 24 hr 06/29/20 16:00 06/29/20 17:53 06/29/20 19:00 Temperature 35.8 C L 35.4 C L Pulse Rate 90 77 88 Respiratory Rate 26 H 16 Blood Pressure 106/52 L 105/35 L Pulse Oximetry 95 97 06/29/20 19:50 06/29/20 20:00 06/29/20 20:15 Temperature 35.4 C L Pulse Rate 86 88 87 Respiratory Rate Blood Pressure 96/50 L 110/52 L 136/87 Pulse Oximetry 95 06/29/20 20:30 06/29/20 20:45 06/29/20 20:55 Temperature Pulse Rate 100 74 97 Respiratory Rate Blood Pressure 109/62 72/42 L 88/41 L Pulse Oximetry 06/29/20 20:58 06/29/20 21:00 06/29/20 21:15
--- NOTE | 2020-06-30 07:02 | PM.PNNEP ---
Progress Note: A&P Assessment and Plan (1) NILSON (acute kidney injury): Code(s): N17.9 - Acute kidney failure, unspecified Status: Acute Assessment and Plan: The patient has acute kidney injury. Renal ultrasound shows a smaller left kidney than the right. The patient is still confused. new catheter in. she had HD yesterday. will tx tomorrow again unless creatinine is down. (2) CKD (chronic kidney disease): Code(s): N18.9 - Chronic kidney disease, unspecified Status: Chronic Assessment and Plan: unclear what her baseline creatinine truly is her creatinine has fluctuated to extremes since earlier this year Will follow this along. follow for recovery (3) Chronic diastolic CHF (congestive heart failure): Code(s): I50.32 - Chronic diastolic (congestive) heart failure Status: Acute Assessment and Plan: recent admission for volume overload requiring increased diuretic therapy Echo showed good LV function, mitral valve calcification, and large left and right atria. Cardiology has been seeing the patient (4) Anemia: Code(s): D64.9 - Anemia, unspecified Status: Acute Assessment and Plan: related to NILSON, CKD, and perhaps acute illness Started Epogen (5) Lung cancer: Code(s): C34.90 - Malignant neoplasm of unspecified part of unspecified bronchus or lung Status: Acute Assessment and Plan: on chemotherapy Subjective Date/time seen: 06/30/20 15:49 Interval history: Seen at 7am today Patient is awake. more conversive and together today. no sob or cp. more comfortable todau confused still, couldn't name [facility] and thought it was 2011. Review of Systems Review of Systems: ROS unobtainable: Yes unobtainable due to medical condition Cardiovascular: Cardiovascular: Reports no additional cardiovascular complaints Respiratory: Respiratory: Reports no additional respiratory complaints Gastrointestinal: Gastrointestinal: Reports no additional gastrointestinal complaints Genitourinary: Genitourinary: Reports no additional female genitourinary complaints Exam Narrative: Exam Narrative: General: Large female in NAD Heart: IRRR, normal S1 and S2; no rub Lungs: coarse breath sounds bilaterally Abdomen: soft, nontender, nondistended, positive bowel sounds Extremities: no cyanosis or clubbing; 1+ edema Skin: No rash or subcu nodules Neuro: Patient is more aware but still confused. myoclonus is better but still present. Objective Data Vital Signs Vital Signs: Vital Signs - 24 hr 06/29/20 16:00 06/29/20 17:53 06/29/20 19:00 Temperature 35.8 C L 35.4 C L Pulse Rate 90 77 88 Respiratory Rate 26 H 16 Blood Pressure 106/52 L 105/35 L Pulse Oximetry 95 97 06/29/20 19:50 06/29/20 20:00 06/29/20 20:15 Temperature 35.4 C L Pulse Rate 86 88 87 Respiratory Rate Blood Pressure 96/50 L 110/52 L 136/87 Pulse Oximetry 95 06/29/20 20:30 06/29/20 20:45 06/29/20 20:55 Temperature Pulse Rate 100 74 97 Respiratory Rate Blood Pressure 109/62 72/42 L 88/41 L Pulse Oximetry 06/29/20 20:58 06/29/20 21:00 06/29/20 21:15 Temperature Pulse Rate 88 96 Respiratory Rate Blood Pressure 86/40 L 110/64 Pulse Oximetry 93 06/29/20 21:30 06/29/20 21:41 06/29/20 21:45 Temperature Pulse Rate 111 H 90 95 Respiratory Rate Blood Pressure 95/65 L 131/58 L Pulse Oximetry 06/29/20 22:00 06/29/20 22:15 06/29/20 22:30 Temperature Pulse Rate 69 107 H 80 Respiratory Rate Blood Pressure 120/56 L 119/57 L 99/60 L Pulse Oximetry 06/29/20 22:45 06/29/20 23:15 06/29/20 23:30 Temperature 35.5 C L Pulse Rate 99 93 98 Respiratory Rate 18 Blood Pressure 94/61 L 91/49 L 106/48 L Pulse Oximetry 95 06/29/20 23:45 06/29/20 23:53 06/30/20 00:00 Temperature 35.5 C L Pulse Rate 92 104 H 68 Respiratory Rate 18 Blood Pressur
[2020-06-30 08:26] LABS: Alveolar/Arterial O2 Gradient 123.2 mmHg; Base Excess ABG 3.5 mEq/l (+/-2.0); Carboxyhemoglobin 0.3 % THb (0-2.0); Device NON-INVASIVE VENT; Fractional Inspired Oxygen 35 %; Methemoglobin ABG 0.2 %THb (0-1.5); Modified Allen's Test Pass; Oxygen Content ABG 10.8 %vol (16.0-22.0); Oxygen Saturation ABG 93.5 % (95.0-100.0); Oxyhemoglobin 90.4 % THb (90.0-100.0); PCO2 ABG 49.2 mmHg (35.0-45.0); PO2 ABG 69.2 mmHg (80.0-100.0); PO2 FiO2 Ratio Arterial Blood 1.98 %; Reduced Hemoglobin 9.1 %THb (0-5.0); Site Drawn LEFT RADIAL; Total Hemoglobin 8.4 g/dL (12.0-18.0); pH ABG 7.388 (7.350-7.450)
[2020-06-30 08:27] LABS: Non-Invasive Expiratory Pressure 6 CMH2O; Non-Invasive Inspiratory Pressure 16 CMH2O; Non-Invasive Vent Rate 10 /MIN
[2020-06-30 09:09] LABS: Glucose Point of Care 168 (65-105)
--- NOTE | 2020-06-30 10:07 | PC.NURSE ---
This patient, Kylee Brand, was transferred to ICU 7 as IMU overflow on 06/30/20 at 1007. Personal belongings sent with patient. Report given to AMY Sands. Appropriate documentation sent with patient.
[2020-06-30] MEDS: carvediloL 12.5 MG TABLET PO ×2 (11:04→20:29)
[2020-06-30] MEDS: DEXAMETHASONE SOD PHOS INJ 4 MG/ML VIAL 6 MG IV PUSH (11:04)
[2020-06-30] MEDS: APIXABAN 5 MG TABLET PO ×2 (11:05→16:44)
[2020-06-30] MEDS: TOLNAFTATE 1% POWDER 45 GM BTL 1 APPLIC TOPICAL ×2 (11:05→20:30)
--- NOTE | 2020-06-30 11:16 | PC.NURSE ---
Patient arrived to ICU 10 at 10:08. Patient in stable condition and report received.
[2020-06-30] MEDS: LORazepam INJ (*CRX) 2 MG/ML VIAL 0.5 MG IV PUSH ×3 (11:20→23:04)
[2020-06-30 11:25] LABS: Glucose Point of Care 167 (65-105)
--- NOTE | 2020-06-30 14:22 | PM.PNCARD ---
Progress Note: A&P Assessment and Plan (1) Chronic diastolic CHF (congestive heart failure): Code(s): I50.32 - Chronic diastolic (congestive) heart failure Status: Acute Assessment and Plan: Patient has chronic diastolic CHF and definitely is volume overloaded. However her renal function suggests that she has intravascular volume depletion. It may be that her metolazone appears to have been increased from 5 mg on Wednesdays and Fridays to 5 mg daily on her recent discharge. In addition her main complaints were weakness and she is having myoclonic jerks suggesting some metabolic abnormality. (2) Hypovolemia: Code(s): E86.1 - Hypovolemia Status: Acute Assessment and Plan: I think the patient may be intravascularly dry. (3) Acute kidney injury superimposed on chronic kidney disease: Code(s): N17.9 - Acute kidney failure, unspecified; N18.9 - Chronic kidney disease, unspecified Status: Acute Assessment and Plan: Significant rise in BUN and creatinine over the last week perhaps due to over diuresis. (4) Lung cancer: Code(s): C34.90 - Malignant neoplasm of unspecified part of unspecified bronchus or lung Status: Acute Assessment and Plan: Lung cancer with localized progression and new lymph node by PET scanning, on chemotherapy, last dose probably end of each May. (5) Exposure to COVID-19 virus: Code(s): Z20.828 - Contact with and (suspected) exposure to other viral communicable diseases Status: Deleted Assessment and Plan: : Subjective Date/time seen: 06/30/20 14:22 Interval history: 65yo female with AFib, HTN, CHF, COPD, Type 2 DM, and non-small cell lung cancer here for CHF exacerbation and NILSON. She developed worsening renal failure and became encephalopathic. Cole placed 06/27 and she underwent HD with improvement in her confusion but worsened on 06/28 and she removed her Cole. Date of service 06/30/2020: She pulled at her Cole catheter and subsequently transferred to the ICU for closer observation. she otherwise is doing okay and resting comfortably. Review of Systems Constitutional: Constitutional: Reports weakness ENT: Denies nasal discharge Cardiovascular: Cardiovascular: Denies chest pain, Reports pedal edema, Reports leg edema, Reports dyspnea and Reports dyspnea on exertion Respiratory: Respiratory: Denies chest congestion, Reports cough, Denies hemoptysis, Reports dyspnea and Reports dyspnea on exertion Gastrointestinal: Gastrointestinal: Denies abdominal pain and Reports bloating Genitourinary: Genitourinary: Denies hematuria and Denies flank pain Musculoskeletal: Musculoskeletal: Denies arthralgias Integumentary/Breasts: Skin/Breast: Denies rash Neurologic: Reports confusion and Reports weakness Psychiatric: Psychiatric: Reports confusion Endocrine: Endocrine: Reports fatigue Exam Narrative: Exam Narrative: Older morbidly obese WF Const: General: comfortable Orientation/consciousness: confusion Resp: Effort & Inspection: normal respiratory effort Cardio: Rhythm: abnormal rhythm irregularly irregular GI: Inspection: distended Skin: General skin exam: normal color Neuro: General: confusion Cognition (Neuro): abnormal cognition Extrem: Other: Moderate bilateral lower extremity edema Psych: Affect: No normal affect Objective Data Vital Signs Vital Signs: Vital Signs - 24 hr 06/29/20 16:00 06/29/20 17:53 06/29/20 19:00 Temperature 35.8 C L 35.4 C L Pulse Rate 90 77 88 Respiratory Rate 26 H 16 Blood Pressure 106/52 L 105/35 L Pulse Oximetry 95 97 06/29/20 19:50 06/29/20 20:00 06/29/20 20:15 Temperature 35.4 C L Pulse Rate 86 88 87 Respiratory Rate Blood Pressure 96/50 L 110/52 L 136/87 Pulse Oximetry 95 1
--- NOTE | 2020-06-30 17:00 | PM.IMPN ---
Progress Note: A&P Assessment and Plan (1) Acute and chronic respiratory failure: Code(s): J96.20 - Acute and chronic respiratory failure, unspecified whether with hypoxia or hypercapnia Status: Acute Assessment and Plan: Patient with chronic respiratory failure with hypoxia on 5L at home. She has developed acute hypoxic and hypercarbic respiratory failure related to CHF complicated by COVID, COPD and lung CA. ABG 06/27 7.29/51/71 on HFNC. ABG yesterday is better at 7.36/49/79 on BiPAP. . Wean down as she tolerates. (2) Acute kidney injury superimposed on chronic kidney disease: Code(s): N17.9 - Acute kidney failure, unspecified; N18.9 - Chronic kidney disease, unspecified Status: Acute Assessment and Plan: Baseline Cr appears to be quite variable, however recently creatinine was around 2.1. Upon presentation, creatinine was 4.58. Patient likely intravascularly dry secondary to diuresis although she appears fluid overloaded. Renal ultrasound showed mild atrophy of the kidneys with no hydronephrosis. BUN and Cr increased to 93 and 6 respectfully on 06/27/20. Patient also became encephalopathic felt related to the uremia with hyperkalemia. Cole catheter placed on 06/27 and patient underwent hemodialysis. Patient more confused and removed her Cole 06/28. . Mentation has improved with prior HD so will continue HD on a more regular basis in hopes of improving her mental status. Continue dialysis to control fluid status. Continue to hold on diuretics. Monitor renal function closely. Renally dose medications and avoid nephrotoxins. (3) COVID-19: Code(s): U07.1 - COVID-19 Status: Acute Assessment and Plan: Tested positive on 06/24/20. No true onset of symptoms as patient was tested due to close contact with known positive individual. CXR 06/23 showed mild infiltrates at the lung bases and CHF. IV dexamethasone started 06/26/20. She is not a candidate for Remdesivir given her kidney failure. She has a baseline O2 requirement of 5L. Increased to bipap now. Trend acute phase reactants. Supportive care to include bronchodilators, expectorants, and antipyretics. Continue isolation precautions. (4) CHF (congestive heart failure): Qualifiers: Heart failure chronicity: acute on chronic Heart failure type: unspecified Qualified Code(s): I50.9 - Heart failure, unspecified Code(s): I50.9 - Heart failure, unspecified Status: Inactive Assessment and Plan: Chronic diastolic CHF. It appears that she had been non compliant with her dietary restrictions and medications. Echo on 06/16/20 showed EF of 55-60% with abnormal LV diastolic function. Diuretics held. Appreciate cardiology and nephrology input. HD to control fluid status. (5) Hyperkalemia: Code(s): E87.5 - Hyperkalemia Status: Acute Assessment and Plan: Secondary to kidney disease. Potassium elevated at 5.8 on 06/25/20 and patient did receive PO potassium supplement at that time. Therefore, potassium lowering therapy was initiated. Potassium climbed to 6.6 before dialysis. She tolerated HD well. Potassium 5.2 yesterday and was unable to have HD. Continue low potassium diet. Monitor electrolytes closely (6) Altered mental status: Code(s): R41.82 - Altered mental status, unspecified Status: Acute Assessment and Plan: AMS 2nd to acute metabolic encephalopathy related to renal failure. Patient alert but confused today. If no improvement with HD, consider MRI brain since she does have lung CA. Follow. (7) DM2 (diabetes mellitus, type 2): Code(s): E11.9 - Type 2 diabetes mellitus without complications Status: Acute Assessment and Plan: A1c is 6.0. Glucose reviewed on 06/30 Blood sugars have been generally well controlled. Continue Accu-Cheks ACHS, SSI, and hypoglycemia protocol. Metformin is on hold. Patient's weekly in
[2020-06-30 17:20] LABS: Glucose Point of Care 199 (65-105)
[2020-06-30 21:31] LABS: Glucose Point of Care 182 (65-105)
[2020-07-01] VITALS (40 sets, daily range): BP systolic 92–143; BP diastolic 58–109; PULSE 53–132; RESP 11–28; TEMP 35.5–37; O2SAT 92–100
[2020-07-01 04:59] LABS: Hematocrit 23.5 % (37.0-47.0); Hemoglobin 7.3 g/dL (12.0-15.0); Immature Granulocyte Absolute 0.02 K/mm3 (0.00-0.031); Immature Granulocyte Percent A 0.5 % (0-0.5); Immature Platelet Fraction Pct 5.1 % (0.9-11.2); Lymphocytes Absolute Auto 0.17 K/mm3 (0.9-3.2); Lymphocytes Percent Auto 4.6 % (18.3-44.2); Mean Corpuscular HGB Conc 31.1 g/dl (32-36); Mean Corpuscular Hemoglobin 33.2 pg (26-34); Mean Corpuscular Volume 106.8 fl (80-100); Mean Platelet Volume 10.3 fl (7.4-10.4); Monocytes Absolute Auto 0.2 K/mm3 (0.1-0.6); Monocytes Percent Auto 4.3 % (2.6-8.5); Neutrophils Absolute Auto 3.4 K/mm3 (1.3-6.7); Neutrophils Percent Auto 90.6 % (45.5-73.1); Platelet Count Result 47 k/mm3 (150-375); Red Cell Distribution Width 20.4 % (11.5-14.5); White Blood Count 3.7 K/mm3 (4.5-10.0)
[2020-07-01 05:25] LABS: D Dimer 6.93 ug/mL (<0.48)
[2020-07-01 05:32] LABS: Alanine Aminotransferase 14 U/L (4-35); Alkaline Phosphatase 100 U/L (38-126); Anion Gap 8 mmol/L (8-16); Aspartate Amino Transferase 32 U/L (14-36); Bilirubin,Total 0.6 mg/dL (0.2-1.3); Blood Urea Nitrogen 77 mg/dL (7-17); Calcium 8.1 mg/dL (8.4-10.2); Carbon Dioxide 33 mmol/L (22-30); Chloride 95 mmol/L (98-107); Estimated CRCL calculation 21 ml/min; Estimated Glomerular Filt Rate 12; Glucose 177 mg/dL (65-105); Potassium 4.9 mmol/L (3.4-5.0); Sodium 136 mmol/L (137-145)
[2020-07-01 05:53] LABS: CRP 4.5 mg/dL (<1.0); Lactate Dehydrogenase 359 U/L (313-618)
--- NOTE | 2020-07-01 09:59 | PM.PNCARD ---
Progress Note: A&P Assessment and Plan (1) Chronic diastolic CHF (congestive heart failure): Code(s): I50.32 - Chronic diastolic (congestive) heart failure Status: Acute Assessment and Plan: Patient has chronic diastolic CHF and definitely is volume overloaded. However her renal function suggests that she has intravascular volume depletion. (2) Hypovolemia: Code(s): E86.1 - Hypovolemia Status: Acute Assessment and Plan: I think the patient may be intravascularly dry. (3) Acute kidney injury superimposed on chronic kidney disease: Code(s): N17.9 - Acute kidney failure, unspecified; N18.9 - Chronic kidney disease, unspecified Status: Acute Assessment and Plan: Undergoing dialysis (4) Lung cancer: Code(s): C34.90 - Malignant neoplasm of unspecified part of unspecified bronchus or lung Status: Acute Assessment and Plan: Lung cancer with localized progression and new lymph node by PET scanning, on chemotherapy, last dose probably end of each May. (5) Exposure to COVID-19 virus: Code(s): Z20.828 - Contact with and (suspected) exposure to other viral communicable diseases Status: Deleted Assessment and Plan: COVID positive with worsening inflammatory markers Subjective Date/time seen: 07/01/20 09:59 Interval history: 65yo female with AFib, HTN, CHF, COPD, Type 2 DM, and non-small cell lung cancer here for CHF exacerbation and NILSON. She developed worsening renal failure and became encephalopathic. Cole placed 06/27 and she underwent HD with improvement in her confusion but worsened on 06/28 and she removed her Cole. Date of service 07/01/2020: On dialysis. Atrial fibrillation with rapid ventricular response noted. Review of Systems Constitutional: Constitutional: Reports fatigue and Reports weakness ENT: Denies nasal discharge Cardiovascular: Cardiovascular: Denies chest pain, Reports pedal edema, Reports leg edema, Reports dyspnea and Reports dyspnea on exertion Respiratory: Respiratory: Denies chest congestion, Reports cough, Denies hemoptysis, Reports dyspnea and Reports dyspnea on exertion Gastrointestinal: Gastrointestinal: Denies abdominal pain and Reports bloating Genitourinary: Genitourinary: Denies hematuria and Denies flank pain Musculoskeletal: Musculoskeletal: Denies arthralgias Integumentary/Breasts: Skin/Breast: Denies rash Neurologic: Reports confusion and Reports weakness Psychiatric: Psychiatric: Reports confusion Endocrine: Endocrine: Reports fatigue Exam Narrative: Exam Narrative: Older morbidly obese WF Const: General: confusion Orientation/consciousness: confusion Resp: Effort & Inspection: normal respiratory effort Cardio: Rhythm: abnormal rhythm irregularly irregular Skin: General skin exam: normal color Neuro: General: confusion Cognition (Neuro): abnormal cognition Extrem: Right lower extremity: lower leg Left lower extremity: lower leg Other: Moderate bilateral lower extremity edema Objective Data Vital Signs Vital Signs: Vital Signs - 24 hr 06/30/20 10:08 06/30/20 11:34 06/30/20 11:59 Temperature 36.7 C Pulse Rate 101 H 101 H Respiratory Rate 14 Blood Pressure 94/59 L Pulse Oximetry 99 92 06/30/20 12:34 06/30/20 13:12 06/30/20 15:25 Temperature 37.1 C Pulse Rate 104 H 94 100 Respiratory Rate 11 L 20 Blood Pressure 106/56 L Pulse Oximetry 93 99 06/30/20 17:37 06/30/20 17:39 06/30/20 20:00 Temperature 36.1 C L Pulse Rate 100 105 H 89 Respiratory Rate 12 18 Blood Pressure 113/72 Pulse Oximetry 94 93 06/30/20 20:15 06/30/20 20:16 06/30/20 20:18 Temperature Pulse Rate 80 70 Respiratory Rate 20 24 H 24 H Blood Pressure Pulse Oximetry 93 93 06/30/20 20:29 06/30/20 22:
[2020-07-01] MEDS: METOPROLOL TARTRATE INJ 5 MG/5 ML VIAL IV PUSH ×3 (10:00→23:33)
[2020-07-01] MEDS: LORazepam INJ (*CRX) 2 MG/ML VIAL 0.5 MG IV PUSH ×4 (10:20→23:03)
[2020-07-01] MEDS: dilTIAZem HCl INJ 25 MG/5 ML VIAL 20 MG IV PUSH (11:42)
[2020-07-01] MEDS: HEPARIN SODIUM 1,000 UNITS/ML VIAL 1000 UNITS IV PUSH (12:11)
--- NOTE | 2020-07-01 12:28 | PM.IMPN ---
Progress Note: A&P Assessment and Plan (1) Acute and chronic respiratory failure: Code(s): J96.20 - Acute and chronic respiratory failure, unspecified whether with hypoxia or hypercapnia Status: Acute Assessment and Plan: Patient with chronic respiratory failure with hypoxia on 5L at home. She has developed acute hypoxic and hypercarbic respiratory failure related to CHF complicated by COVID, COPD and lung CA. ABG 06/27 7.29/51/71 on HFNC. ABG 06/28 was better at 7.36/49/79 on BiPAP. . Wean down as she tolerates. (2) Acute kidney injury superimposed on chronic kidney disease: Code(s): N17.9 - Acute kidney failure, unspecified; N18.9 - Chronic kidney disease, unspecified Status: Acute Assessment and Plan: Baseline Cr appears to be quite variable, however recently creatinine was around 2.1. Upon presentation, creatinine was 4.58. Patient likely intravascularly dry secondary to diuresis although she appears fluid overloaded. Renal ultrasound showed mild atrophy of the kidneys with no hydronephrosis. BUN and Cr increased to 93 and 6 respectfully on 06/27/20. Patient also became encephalopathic felt related to the uremia with hyperkalemia. Cole catheter placed on 06/27 and patient underwent hemodialysis. Patient more confused and removed her Cole 06/28. . Mentation has improved with prior HD so will continue HD on a more regular basis in hopes of improving her mental status. Continue dialysis to control fluid status. Continue to hold on diuretics. Monitor renal function closely. Renally dose medications and avoid nephrotoxins. dialyzed again today (3) COVID-19: Code(s): U07.1 - COVID-19 Status: Acute Assessment and Plan: Tested positive on 06/24/20. No true onset of symptoms as patient was tested due to close contact with known positive individual. CXR 06/23 showed mild infiltrates at the lung bases and CHF. IV dexamethasone started 06/26/20. She is not a candidate for Remdesivir given her kidney failure. She has a baseline O2 requirement of 5L. Increased to bipap now. Trend acute phase reactants. Supportive care to include bronchodilators, expectorants, and antipyretics. Continue isolation precautions. (4) CHF (congestive heart failure): Qualifiers: Heart failure chronicity: acute on chronic Heart failure type: unspecified Qualified Code(s): I50.9 - Heart failure, unspecified Code(s): I50.9 - Heart failure, unspecified Status: Inactive Assessment and Plan: Chronic diastolic CHF. It appears that she had been non compliant with her dietary restrictions and medications. Echo on 06/16/20 showed EF of 55-60% with abnormal LV diastolic function. Diuretics held. Appreciate cardiology and nephrology input. HD to control fluid status. (5) Hyperkalemia: Code(s): E87.5 - Hyperkalemia Status: Acute Assessment and Plan: Secondary to kidney disease. Potassium elevated at 5.8 on 06/25/20 and patient did receive PO potassium supplement at that time. Therefore, potassium lowering therapy was initiated. Potassium climbed to 6.6 before dialysis. She tolerated HD well. Potassium 4.9 today prior to HD. Continue low potassium diet. Monitor electrolytes closely (6) Altered mental status: Code(s): R41.82 - Altered mental status, unspecified Status: Acute Assessment and Plan: AMS 2nd to acute metabolic encephalopathy related to renal failure. . If no improvement with HD, consider MRI brain since she does have lung CA. Follow. (7) DM2 (diabetes mellitus, type 2): Code(s): E11.9 - Type 2 diabetes mellitus without complications Status: Acute Assessment and Plan: A1c is 6.0. Glucose reviewed on 07/01 Blood sugars have been generally well controlled. Continue Accu-Cheks ACHS, SSI, and hypoglycemia protocol. Metformin is on hold. Patient's weekly injectable Ozempic is non formul
[2020-07-01] MEDS: EUCERIN CREAM 120 GM JAR 1 APPLIC TOPICAL (13:16)
[2020-07-01] MEDS: TOLNAFTATE 1% POWDER 45 GM BTL 1 APPLIC TOPICAL ×2 (13:16→20:57)
[2020-07-01] MEDS: DEXAMETHASONE SOD PHOS INJ 4 MG/ML VIAL 6 MG IV PUSH (13:18)
[2020-07-01] MEDS: DIGOXIN INJ 250 MCG/ML 2 ML AMP (*BKC) 500 MCG IV PUSH (13:55)
[2020-07-01 14:15] LABS: Glucose Point of Care 154 (65-105)
--- NOTE | 2020-07-01 16:26 | PM.PNNEP ---
Progress Note: A&P Assessment and Plan (1) NILSON (acute kidney injury): Code(s): N17.9 - Acute kidney failure, unspecified Status: Acute Assessment and Plan: The patient has acute kidney injury. Renal ultrasound shows a smaller left kidney than the right. The patient is still confused. new catheter in. She is going to start dialysis in a few minutes now that uremia has been treated, the confusion That remains may be due to something else. (2) CKD (chronic kidney disease): Code(s): N18.9 - Chronic kidney disease, unspecified Status: Chronic Assessment and Plan: unclear what her baseline creatinine truly is she has a variable creatinine of late Before this event.. (3) Chronic diastolic CHF (congestive heart failure): Code(s): I50.32 - Chronic diastolic (congestive) heart failure Status: Acute Assessment and Plan: recent admission for volume overload requiring increased diuretic therapy Echo showed good LV function, mitral valve calcification, and large left and right atria. Cardiology has been seeing the patient (4) Anemia: Code(s): D64.9 - Anemia, unspecified Status: Acute Assessment and Plan: related to NILSON, CKD, and perhaps acute illness On October now (5) Lung cancer: Code(s): C34.90 - Malignant neoplasm of unspecified part of unspecified bronchus or lung Status: Acute Assessment and Plan: on chemotherapy Subjective Date/time seen: 07/01/20 16:26 Interval history: Seen earlier today. Patient is awake But confused. Difficult to get her to focus at all. She is being set up for dialysis. Review of Systems Review of Systems: ROS unobtainable: Yes unobtainable due to medical condition Exam Narrative: Exam Narrative: General: Large female in NAD Heart: IRRR, normal S1 and S2; no rub Lungs: coarse breath sounds bilaterally Abdomen: soft, nontender, nondistended, positive bowel sounds Extremities: no cyanosis or clubbing; 1+ edema Skin: No rash or subcu nodules Neuro: Patient is more aware but still confused. myoclonus is Improved. Objective Data Vital Signs Vital Signs: Vital Signs - 24 hr 06/30/20 17:37 06/30/20 17:39 06/30/20 20:00 Temperature 36.1 C L Pulse Rate 100 105 H 89 Respiratory Rate 12 18 Blood Pressure 113/72 Pulse Oximetry 94 93 12/15/20 20:15 06/30/20 20:16 06/30/20 20:18 Temperature Pulse Rate 80 70 Respiratory Rate 20 24 H 24 H Blood Pressure Pulse Oximetry 93 93 06/30/20 20:29 06/30/20 22:00 07/01/20 00:00 Temperature 36.1 C L Pulse Rate 100 86 85 Respiratory Rate 14 Blood Pressure 113/65 Pulse Oximetry 96 07/01/20 02:00 07/01/20 02:13 07/01/20 04:00 Temperature 36.2 C L Pulse Rate 104 H 100 116 H Respiratory Rate 19 18 Blood Pressure 127/72 Pulse Oximetry 97 95 07/01/20 06:00 07/01/20 08:00 07/01/20 08:40 Temperature 36.4 C L 36.4 C L 36.4 C L Pulse Rate 113 H 104 H 120 H Respiratory Rate 25 H 21 H 11 L Blood Pressure 123/109 H 103/66 111/76 Pulse Oximetry 97 100 93 07/01/20 08:58 07/01/20 09:00 07/01/20 09:15 Temperature Pulse Rate 117 H 94 114 H Respiratory Rate Blood Pressure 111/73 105/59 L 103/66 Pulse Oximetry 07/01/20 09:30 07/01/20 09:45 07/01/20 09:50 Temperature Pulse Rate 103 H 117 H 115 H Respiratory Rate 21 H Blood Pressure 104/66 92/60 L Pulse Oximetry 100 07/01/20 10:00 07/01/20 10:14 07/01/20 10:30 Temperature Pulse Rate 114 H 117 H 104 H Respiratory Rate 18 Blood Pressure 135/58 L 119/88 135/58 L Pulse Oximetry 96 07/01/20 10:45 07/01/20 11:00 07/01/20 11:15 Temperature Pulse Rate 132 H 116 H 122 H Respiratory Rate Blood Pressure 122/102 H 111/83 125/95 H Pulse Oximetry 07/01/20 11:30 07/01/20 11:45 07/01/20 11:58 Temperature Pulse Rate 127 H 97 92 Respiratory Rate Bl
[2020-07-01 17:43] LABS: Glucose Point of Care 157 (65-105)
[2020-07-01 21:10] LABS: Glucose Point of Care 168 (65-105)
[2020-07-02] VITALS (28 sets, daily range): BP systolic 130–172; BP diastolic 66–100; PULSE 11–128; RESP 15–28; TEMP 35.8–37.3; O2SAT 89–96
[2020-07-02 05:49] LABS: Hematocrit 22.9 % (37.0-47.0); Hemoglobin 7.1 g/dL (12.0-15.0); Immature Granulocyte Absolute 0.02 K/mm3 (0.00-0.031); Immature Granulocyte Percent A 0.5 % (0-0.5); Immature Platelet Fraction Pct 6.5 % (0.9-11.2); Lymphocytes Absolute Auto 0.19 K/mm3 (0.9-3.2); Lymphocytes Percent Auto 4.8 % (18.3-44.2); Mean Corpuscular Hemoglobin 32.7 pg (26-34); Mean Corpuscular Volume 105.5 fl (80-100); Monocytes Absolute Auto 0.2 K/mm3 (0.1-0.6); Monocytes Percent Auto 5.5 % (2.6-8.5); Neutrophils Absolute Auto 3.6 K/mm3 (1.3-6.7); Neutrophils Percent Auto 89.2 % (45.5-73.1); Platelet Count Result 39 k/mm3 (150-375); Red Blood Count 2.17 M/mm3 (4.2-5.4); Red Cell Distribution Width 20.5 % (11.5-14.5)
[2020-07-02 06:09] LABS: Magnesium 2.2 mg/dL (1.6-2.3); Phosphorus 4.7 mg/dL (2.5-4.5)
[2020-07-02] MEDS: METOPROLOL TARTRATE INJ 5 MG/5 ML VIAL IV PUSH ×3 (06:09→17:35)
[2020-07-02 06:12] LABS: Alanine Aminotransferase 16 U/L (4-35); Albumin Level 3.2 g/dL (3.5-5.1); Alkaline Phosphatase 106 U/L (38-126); Anion Gap 6 mmol/L (8-16); Aspartate Amino Transferase 36 U/L (14-36); Bilirubin,Total 0.9 mg/dL (0.2-1.3); Blood Urea Nitrogen 59 mg/dL (7-17); Calcium 8.4 mg/dL (8.4-10.2); Carbon Dioxide 36 mmol/L (22-30); Chloride 95 mmol/L (98-107); Estimated CRCL calculation 28 ml/min; Estimated Glomerular Filt Rate 18; Glucose 161 mg/dL (65-105); Potassium 4.5 mmol/L (3.4-5.0); Sodium 137 mmol/L (137-145)
[2020-07-02] MEDS: TOLNAFTATE 1% POWDER 45 GM BTL 1 APPLIC TOPICAL ×2 (08:04→21:47)
[2020-07-02] MEDS: EUCERIN CREAM 120 GM JAR 1 APPLIC TOPICAL (08:04)
[2020-07-02] MEDS: DEXAMETHASONE SOD PHOS INJ 4 MG/ML VIAL 6 MG IV PUSH (08:05)
[2020-07-02 08:14] LABS: Platelet Estimate Decreased (Adequate)
[2020-07-02 08:15] LABS: Ovalocytes 1+ (NORMAL); Tear Drop Cells 1+ (NORMAL)
[2020-07-02] MEDS: LORazepam INJ (*CRX) 2 MG/ML VIAL 0.5 MG IV PUSH (09:46)
--- NOTE | 2020-07-02 12:19 | PM.IMPN ---
Progress Note: A&P Assessment and Plan (1) Acute and chronic respiratory failure: Code(s): J96.20 - Acute and chronic respiratory failure, unspecified whether with hypoxia or hypercapnia Status: Acute Assessment and Plan: Patient with chronic respiratory failure with hypoxia on 5L at home. She has developed acute hypoxic and hypercarbic respiratory failure related to CHF complicated by COVID, COPD and lung CA. ABG repeat today pending . Wean down as she tolerates. (2) Acute kidney injury superimposed on chronic kidney disease: Code(s): N17.9 - Acute kidney failure, unspecified; N18.9 - Chronic kidney disease, unspecified Status: Acute Assessment and Plan: Baseline Cr appears to be quite variable, however recently creatinine was around 2.1. Upon presentation, creatinine was 4.58. Patient likely intravascularly dry secondary to diuresis although she appears fluid overloaded. Renal ultrasound showed mild atrophy of the kidneys with no hydronephrosis. BUN and Cr increased to 93 and 6 respectfully on 06/27/20. Patient also became encephalopathic felt related to the uremia with hyperkalemia. Cole catheter placed on 06/27 and patient underwent hemodialysis. Patient more confused and removed her Cole 06/28. . Mentation has improved with prior HD but with continued HD her mental status remains unchanged. Continue dialysis to control fluid status. Monitor renal function closely. dialyzed 07/01 and probable again 07/03 (3) COVID-19: Code(s): U07.1 - COVID-19 Status: Acute Assessment and Plan: Tested positive on 06/24/20. No true onset of symptoms as patient was tested due to close contact with known positive individual. CXR 06/23 showed mild infiltrates at the lung bases and CHF. IV dexamethasone started 06/26/20. She is not a candidate for Remdesivir given her kidney failure. She has a baseline O2 requirement of 5L. Increased to bipap now. Trend acute phase reactants. Supportive care to include bronchodilators, expectorants, and antipyretics. Continue isolation precautions. repeat cxr am 07/03 (4) CHF (congestive heart failure): Qualifiers: Heart failure chronicity: acute on chronic Heart failure type: unspecified Qualified Code(s): I50.9 - Heart failure, unspecified Code(s): I50.9 - Heart failure, unspecified Status: Inactive Assessment and Plan: Chronic diastolic CHF. It appears that she had been non compliant with her dietary restrictions and medications. Echo on 06/16/20 showed EF of 55-60% with abnormal LV diastolic function. Diuretics held. Appreciate cardiology and nephrology input. HD to control fluid status. (5) Hyperkalemia: Code(s): E87.5 - Hyperkalemia Status: Acute Assessment and Plan: Secondary to kidney disease. Potassium elevated at 5.8 on 06/25/20 and patient did receive PO potassium supplement at that time. Therefore, potassium lowering therapy was initiated. Potassium climbed to 6.6 before dialysis. She tolerated HD well. Potassium 4.5 today prior to HD. Continue low potassium diet. Monitor electrolytes closely (6) Altered mental status: Code(s): R41.82 - Altered mental status, unspecified Status: Acute Assessment and Plan: AMS 2nd to acute metabolic encephalopathy related to renal failure and probable covid. . no improvement with HD, consider MRI brain since she does have lung CA but unable to do so with bipap. (7) DM2 (diabetes mellitus, type 2): Code(s): E11.9 - Type 2 diabetes mellitus without complications Status: Acute Assessment and Plan: A1c is 6.0. Glucose reviewed on 07/02 Blood sugars have been generally well controlled. Continue Accu-Cheks ACHS, SSI, and hypoglycemia protocol. Metformin is on hold. Patient's weekly injectable Ozempic is non formulary. FBS today 168 (8) Non-small cell lung cancer (NSCLC): Code(s):
[2020-07-02 12:34] LABS: Glucose Point of Care 165 (65-105)
--- NOTE | 2020-07-02 13:16 | P.PNNP_ITS ---
Progress Note: A&P Assessment and Plan (1) NILSON (acute kidney injury): Code(s): N17.9 - Acute kidney failure, unspecified Status: Acute Assessment and Plan: * The patient has acute kidney injury. * Renal ultrasound shows a smaller left kidney than the right. * The patient is still confused. * new catheter in. She had dialysis yesterday. * Giving her a rest today. * Will reassess for dialysis tomorrow. * Since this is acute kidney injury will watch urine output and labs and see if she is ready to come off the machine. (2) CKD (chronic kidney disease): Code(s): N18.9 - Chronic kidney disease, unspecified Status: Chronic Assessment and Plan: * unclear what her baseline creatinine truly is * she has a variable creatinine of late Before this event.. (3) Chronic diastolic CHF (congestive heart failure): Code(s): I50.32 - Chronic diastolic (congestive) heart failure Status: Acute Assessment and Plan: * recent admission for volume overload requiring increased diuretic therapy * Echo showed good LV function, mitral valve calcification, and large left and right atria. * Cardiology has been seeing the patient (4) Anemia: Code(s): D64.9 - Anemia, unspecified Status: Acute Assessment and Plan: * related to NILSON, CKD, and perhaps acute illness * On Epogen now (5) Lung cancer: Code(s): C34.90 - Malignant neoplasm of unspecified part of unspecified bronchus or lung Status: Acute Assessment and Plan: * on chemotherapy Subjective Date/time seen: 07/02/20 13:16 Interval history: Patient is awake But confused. On a BiPAP mask. Denies pain or shortness of breath Review of Systems Review of Systems: ROS unobtainable: Yes unobtainable due to medical condition Exam Narrative: Exam Narrative: General: WD WN overweight female in NAD Heart: IRRR, normal S1 and S2; no rub Lungs: coarse breath sounds bilaterally Abdomen: soft, nontender, nondistended, positive bowel sounds Extremities: 1+ edema Skin: No rash or subcu nodules Neuro: Patient is more aware but still confused. myoclonus is Improved. Objective Data Vital Signs Vital Signs: Vital Signs - 24 hr 07/01/20 13:50 07/01/20 13:55 12/16/20 14:00 Temperature Pulse Rate 109 H 121 H 112 H Respiratory Rate 21 H 18 Blood Pressure 127/81 Pulse Oximetry 93 92 07/01/20 16:00 07/01/20 17:29 07/01/20 17:52 Temperature 36.8 C Pulse Rate 113 H 118 H 105 H Respiratory Rate 16 16 Blood Pressure 143/99 H Pulse Oximetry 92 92 07/01/20 18:00 07/01/20 19:55 07/01/20 19:56 Temperature Pulse Rate 113 H 108 H 108 H Respiratory Rate 16 19 19 Blood Pressure 115/96 H Pulse Oximetry 92 92 92 07/01/20 19:57 07/01/20 20:00 07/01/20 22:00 Temperature 36.3 C L Pulse Rate 108 H 125 H 115 H Respiratory Rate 20 17 24 H Blood Pressure 139/83 121/81 Pulse Oximetry 93 97 07/01/20 23:33 07/02/20 00:00 07/02/20 02:00 Temperature 36.3 C L Pulse Rate 104 H 110 H 118 H Respiratory Rate 22 H 24 H Blood Pressure 133/89 135
--- NOTE | 2020-07-02 13:16 | PM.PNNEP ---
Progress Note: A&P Assessment and Plan (1) NILSON (acute kidney injury): Code(s): N17.9 - Acute kidney failure, unspecified Status: Acute Assessment and Plan: The patient has acute kidney injury. Renal ultrasound shows a smaller left kidney than the right. The patient is still confused. new catheter in. She had dialysis yesterday. Giving her a rest today. Will reassess for dialysis tomorrow. Since this is acute kidney injury will watch urine output and labs and see if she is ready to come off the machine. (2) CKD (chronic kidney disease): Code(s): N18.9 - Chronic kidney disease, unspecified Status: Chronic Assessment and Plan: unclear what her baseline creatinine truly is she has a variable creatinine of late Before this event.. (3) Chronic diastolic CHF (congestive heart failure): Code(s): I50.32 - Chronic diastolic (congestive) heart failure Status: Acute Assessment and Plan: recent admission for volume overload requiring increased diuretic therapy Echo showed good LV function, mitral valve calcification, and large left and right atria. Cardiology has been seeing the patient (4) Anemia: Code(s): D64.9 - Anemia, unspecified Status: Acute Assessment and Plan: related to NILSON, CKD, and perhaps acute illness On Epogen now (5) Lung cancer: Code(s): C34.90 - Malignant neoplasm of unspecified part of unspecified bronchus or lung Status: Acute Assessment and Plan: on chemotherapy Subjective Date/time seen: 07/02/20 13:16 Interval history: Patient is awake But confused. On a BiPAP mask. Denies pain or shortness of breath Review of Systems Review of Systems: ROS unobtainable: Yes unobtainable due to medical condition Exam Narrative: Exam Narrative: General: WD WN overweight female in NAD Heart: IRRR, normal S1 and S2; no rub Lungs: coarse breath sounds bilaterally Abdomen: soft, nontender, nondistended, positive bowel sounds Extremities: 1+ edema Skin: No rash or subcu nodules Neuro: Patient is more aware but still confused. myoclonus is Improved. Objective Data Vital Signs Vital Signs: Vital Signs - 24 hr 07/01/20 13:50 07/01/20 13:55 07/01/20 14:00 Temperature Pulse Rate 109 H 121 H 112 H Respiratory Rate 21 H 18 Blood Pressure 127/81 Pulse Oximetry 93 92 07/01/20 16:00 07/01/20 17:29 07/01/20 17:52 Temperature 36.8 C Pulse Rate 113 H 118 H 105 H Respiratory Rate 16 16 Blood Pressure 143/99 H Pulse Oximetry 92 92 07/01/20 18:00 07/01/20 19:55 07/01/20 19:56 Temperature Pulse Rate 113 H 108 H 108 H Respiratory Rate 16 19 19 Blood Pressure 115/96 H Pulse Oximetry 92 92 92 07/01/20 19:57 07/01/20 20:00 07/01/20 22:00 Temperature 36.3 C L Pulse Rate 108 H 125 H 115 H Respiratory Rate 20 17 24 H Blood Pressure 139/83 121/81 Pulse Oximetry 93 97 07/01/20 23:33 07/02/20 00:00 07/02/20 02:00 Temperature 36.3 C L Pulse Rate 104 H 110 H 118 H Respiratory Rate 22 H 24 H Blood Pressure 133/89 135/80 Pulse Oximetry 90 96 07/02/20 04:00 07/02/20 06:00 07/02/20 06:09 Temperature 36.2 C L 36.2 C L Pulse Rate 111 H 108 H 128 H Respiratory Rate 19 19 Blood Pressure 134/69 137/89 Pulse Oximetry 94 92 07/02/20 08:00 07/02/20 08:50 07/02/20 10:00 Temperature 35.8 C L Pulse Rate 108 H 112 H 97 Respiratory Rate 25 H 24 H 15 Blood Pressure 133/95 H 137/68 Pulse Oximetry 90 90 94 07/02/20 11:32 07/02/20 12:00 07/02/20 12:25 Temperature 36.8 C Pulse Rate 108 H 108 H 107 H Respiratory Rate 21 H 25 H Blood Pressure 154/80 H Pulse Oximetry 92 94 07/02/20 12:30 Temperature Pulse Rate 107 H Respiratory Rate Blood Pressure 154/80 H Pulse Oximetry Intake/Output Intake/Output: Intake & Output 06/29/20 06/30/20 07/01/20 07/02/20 23:59 23:59 23:59 23:59 Intake Total
[2020-07-02 13:21] LABS: Alveolar/Arterial O2 Gradient 225.4 mmHg; Base Excess ABG 4.4 mEq/l (+/-2.0); Fractional Inspired Oxygen 50 %; HCO3 ABG 30.6 mEq/l (22.0-26.0); Oxygen Content ABG 11.5 %vol (16.0-22.0); Oxygen Saturation ABG 92.8 % (95.0-100.0); PCO2 ABG 55.3 mmHg (35.0-45.0); PO2 ABG 68.9 mmHg (80.0-100.0); PO2 FiO2 Ratio Arterial Blood 1.38 %; pH ABG 7.361 (7.350-7.450)
[2020-07-02 13:22] LABS: Device BIPAP; Expiratory Pressure 5 cmH2O; Inspiratory Pressure 10 cmH2O; Modified Allen's Test Pass; Site Drawn LEFT RADIAL
--- NOTE | 2020-07-02 15:11 | PM.PNCARD ---
Progress Note: A&P Assessment and Plan (1) Chronic diastolic CHF (congestive heart failure): Code(s): I50.32 - Chronic diastolic (congestive) heart failure Status: Acute Assessment and Plan: Patient has chronic diastolic CHF and definitely is volume overloaded. However her renal function suggests that she has intravascular volume depletion. (2) Hypovolemia: Code(s): E86.1 - Hypovolemia Status: Acute Assessment and Plan: I think the patient may be intravascularly dry. (3) Acute kidney injury superimposed on chronic kidney disease: Code(s): N17.9 - Acute kidney failure, unspecified; N18.9 - Chronic kidney disease, unspecified Status: Acute Assessment and Plan: Undergoing dialysis (4) Lung cancer: Code(s): C34.90 - Malignant neoplasm of unspecified part of unspecified bronchus or lung Status: Acute Assessment and Plan: Lung cancer with localized progression and new lymph node by PET scanning, on chemotherapy, last dose probably end of each May. (5) Exposure to COVID-19 virus: Code(s): Z20.828 - Contact with and (suspected) exposure to other viral communicable diseases Status: Deleted Assessment and Plan: COVID positive with worsening inflammatory markers (6) Atrial fibrillation: Code(s): I48.91 - Unspecified atrial fibrillation Status: Acute Assessment and Plan: Will give a dose of IV amiodarone 150 mg IV times 1 Subjective Date/time seen: 07/02/20 15:11 Interval history: 65yo female with AFib, HTN, CHF, COPD, Type 2 DM, and non-small cell lung cancer here for CHF exacerbation and NILSON. She developed worsening renal failure and became encephalopathic. Cole placed 06/27 and she underwent HD with improvement in her confusion but worsened on 06/28 and she removed her Cole. Date of service 07/02/2020: On dialysis. Atrial fibrillation with rapid ventricular response noted. Review of Systems Constitutional: Constitutional: Reports fatigue and Reports weakness ENT: Denies nasal discharge Cardiovascular: Cardiovascular: Denies chest pain, Reports pedal edema, Reports leg edema, Reports dyspnea and Reports dyspnea on exertion Respiratory: Respiratory: Denies chest congestion, Reports cough, Denies hemoptysis, Reports dyspnea and Reports dyspnea on exertion Gastrointestinal: Gastrointestinal: Denies abdominal pain and Reports bloating Genitourinary: Genitourinary: Denies hematuria and Denies flank pain Musculoskeletal: Musculoskeletal: Denies arthralgias Integumentary/Breasts: Skin/Breast: Denies rash Neurologic: Reports confusion and Reports weakness Psychiatric: Psychiatric: Reports confusion Endocrine: Endocrine: Reports fatigue Exam Narrative: Exam Narrative: Older morbidly obese WF Const: General: confusion Neck: Neck: supple Resp: Effort & Inspection: normal respiratory effort Cardio: Rhythm: abnormal rhythm irregularly irregular GI: Inspection: distended Other: some edema of post abdom wall and flanks. Skin: General skin exam: normal color Lesions: lesion noted (dry, scaly hyperpigmented skin LE) Neuro: General: confusion Cognition (Neuro): abnormal cognition Speech: normal speech Extrem: Right lower extremity: lower leg Left lower extremity: lower leg Other: Moderate bilateral lower extremity edema Objective Data Vital Signs Vital Signs: Vital Signs - 24 hr 07/01/20 16:00 07/01/20 17:29 07/01/20 17:52 Temperature 36.8 C Pulse Rate 113 H 118 H 105 H Respiratory Rate 16 16 Blood Pressure 143/99 H Pulse Oximetry 92 92 07/01/20 18:00 07/01/20 19:55 07/01/20 19:56 Temperature Pulse Rate 113 H 108 H 108 H Respiratory Rate 16 19 19 Blood Pressure 115/96 H Pulse Oximetry 92 92 92 07/01/20 19:57 07/01
[2020-07-02] MEDS: AMIODARONE 150 MG/D5W 100 ML 150 MG/100 ML BAG 600 MG IV CONT (15:31)
[2020-07-02] MEDS: BUMETANIDE INJ 2.5 MG/10 ML VIAL 2 MG IV PUSH (17:34)
[2020-07-02 17:51] LABS: Glucose Point of Care 119 (65-105)
[2020-07-02 20:40] LABS: Hepatitis B Core Ab Total Nonreactive (Nonreactive)
[2020-07-03] VITALS (55 sets, daily range): BP systolic 74–185; BP diastolic 37–98; PULSE 95–135; RESP 13–34; TEMP 36.9–37.7; O2SAT 88–100; BMI 59.0
[2020-07-03] MEDS: METOPROLOL TARTRATE INJ 5 MG/5 ML VIAL IV PUSH (00:37)
[2020-07-03] MEDS: hydrALAZINE HCL 20 MG/ML VIAL 10 MG IV PUSH (01:47)
[2020-07-03 03:48] LABS: Alveolar/Arterial O2 Gradient 429.7 mmHg; Base Excess ABG 5.2 mEq/l (+/-2.0); Carboxyhemoglobin 0.3 % THb (0-2.0); Fractional Inspired Oxygen 80 %; HCO3 ABG 31.1 mEq/l (22.0-26.0); Methemoglobin ABG 0.2 %THb (0-1.5); Oxygen Content ABG 11.4 %vol (16.0-22.0); Oxyhemoglobin 94.3 % THb (90.0-100.0); PCO2 ABG 53.7 mmHg (35.0-45.0); PO2 ABG 84.3 mmHg (80.0-100.0); PO2 FiO2 Ratio Arterial Blood 1.05 %; Reduced Hemoglobin 5.2 %THb (0-5.0); Total Hemoglobin 8.5 g/dL (12.0-18.0); pH ABG 7.381 (7.350-7.450)
[2020-07-03] MEDS: FENTANYL 2,500MCG/NS250ML(*CRX 2,500 MCG/250 ML BAG 7.5 MCG IV CONT (04:40)
[2020-07-03] MEDS: PROPOFOL IV EMULSION 100 ML 9.54 MG IV CONT ×2 (04:40→20:32)
--- NOTE | 2020-07-03 04:55 | WPDPROCEDUR ---
Procedures Intubation Intubation Date: 07/03/20 Intubation Time: 04:45 A pre-procedural Time-Out was completed immediately before starting the procedure and confirmed: Patient Identification, Site, Procedure, Patient Position and the Availability of Requisite Equipment: Yes Sedative: etomidate Mg given: 10 Paralytic: rocuronium Mg given: 70 Laryngoscope: fiber optic video scope ET tube size: cuffed Tube secured depth (cm): 25 Tube secured location: teeth Tube placement confirmation: visualized tube passing through cords, equal breath sounds bilaterally, no breath sounds over epigastrium and confirmation by capnometry Patient tolerated procedure: well Intubation complications: none Additional comments: Date of service was 07/03/2020 at 04:45 hrs.
[2020-07-03] MEDS: ROCURONIUM BROMIDE 50 MG/5 ML VIAL (05:56)
[2020-07-03] MEDS: CISATRACURIUM BESYLATE 200 MG in DEXTROSE 5% 80 ML 14.31 ML IV CONT (06:32)
[2020-07-03 06:55] LABS: Glucose Point of Care 157 (65-105)
[2020-07-03 07:21] LABS: Alveolar/Arterial O2 Gradient 611.1 mmHg; Base Excess ABG 4.4 mEq/l (+/-2.0); Carboxyhemoglobin 0.3 % THb (0-2.0); Fractional Inspired Oxygen 100 %; HCO3 ABG 29.7 mEq/l (22.0-26.0); Methemoglobin ABG 0.4 %THb (0-1.5); Oxygen Content ABG 10.4 %vol (16.0-22.0); Oxygen Saturation ABG 87.4 % (95.0-100.0); Oxyhemoglobin 82.1 % THb (90.0-100.0); PCO2 ABG 48.6 mmHg (35.0-45.0); PO2 ABG 53.3 mmHg (80.0-100.0); PO2 FiO2 Ratio Arterial Blood 0.53 %; Reduced Hemoglobin 17.2 %THb (0-5.0); pH ABG 7.404 (7.350-7.450)
[2020-07-03 07:23] LABS: Device AMBU BAG; Modified Allen's Test Pass; Site Drawn LEFT RADIAL
[2020-07-03 07:23] LABS: Device NON-INVASIVE VENT; Modified Allen's Test Pass; Site Drawn LEFT RADIAL
[2020-07-03 07:24] LABS: Non-Invasive Expiratory Pressure 5 CMH2O; Non-Invasive Inspiratory Pressure 10 CMH2O; Non-Invasive Vent Rate 10 /MIN
[2020-07-03] MEDS: NOREPINEPHRINE 8 MG/D5W 250 ML 8 MG/250 ML BAG 56.25 MG IV CONT ×3 (07:30→17:04)
[2020-07-03] MEDS: SODIUM BICARBONATE 8.4% 50 MEQ/50 ML SYRINGE IV PUSH (07:33)
[2020-07-03] MEDS: EPOPROSTENOL SODIUM 0.5 MG VIAL 1 MG INHALATION ×3 (07:40→19:25)
[2020-07-03] MEDS: AMIODARONE 360 MG/D5W 200 ML 360 MG/200 ML BAG 33.33 MG IV CONT ×3 (09:30→20:36)
--- NOTE | 2020-07-03 09:30 | PM.PNNEP ---
Progress Note: A&P Assessment and Plan (1) NILSON (acute kidney injury): Code(s): N17.9 - Acute kidney failure, unspecified Status: Acute Assessment and Plan: The patient has acute kidney injury. Renal ultrasound shows a smaller left kidney than the right. She received some diuretics yesterday. Urine output was improved yesterday with 950cc yesterday, and 1450cc overnight. Chemistries are pending for today. We will see how these are and decide on dialysis after that. With the improved urine output and her low blood pressure making dialysis more risky I would opt for waiting till tomorrow and reassessing and LEs labs are terrible. (2) CKD (chronic kidney disease): Code(s): N18.9 - Chronic kidney disease, unspecified Status: Chronic Assessment and Plan: unclear what her baseline creatinine truly is she has a variable creatinine of late Before this event.. (3) Chronic diastolic CHF (congestive heart failure): Code(s): I50.32 - Chronic diastolic (congestive) heart failure Status: Acute Assessment and Plan: recent admission for volume overload requiring increased diuretic therapy Echo showed good LV function, mitral valve calcification, and large left and right atria. Cardiology has been seeing the patient (4) Anemia: Code(s): D64.9 - Anemia, unspecified Status: Acute Assessment and Plan: related to NILSON, CKD, and perhaps acute illness On Epogen [id number] now (5) Lung cancer: Code(s): C34.90 - Malignant neoplasm of unspecified part of unspecified bronchus or lung Status: Acute Assessment and Plan: on chemotherapy (6) Hypotensive episode: Code(s): I95.9 - Hypotension, unspecified Status: Acute Assessment and Plan: To the atrial fibrillation with rapid ventricular rate or possibly sepsis. Cultures are pending. Her urine on admission looked okay. Discussed with Subjective Date/time seen: 07/03/20 09:30 Interval history: Patient developed worsening oxygenation yesterday. She needed to be intubated. Now on the ventilator. Blood pressure is low. Review of Systems Review of Systems: ROS unobtainable: Yes unobtainable due to medical condition Exam Narrative: Exam Narrative: General: WD WN sedated overweight female on Nimbex in NAD Heart: IRRR, normal S1 and S2; no rub Lungs: coarse breath sounds bilaterally Abdomen: soft, nontender, nondistended, positive bowel sounds Extremities: 1+ edema Skin: No rash or subcu nodules Objective Data Vital Signs Vital Signs: Vital Signs - 24 hr 07/02/20 10:00 07/02/20 11:32 07/02/20 12:00 Temperature 36.8 C Pulse Rate 97 108 H 108 H Respiratory Rate 15 21 H 25 H Blood Pressure 137/68 154/80 H Pulse Oximetry 94 92 94 07/02/20 12:25 07/02/20 12:30 07/02/20 13:28 Temperature Pulse Rate 107 H 107 H 107 H Respiratory Rate 24 H Blood Pressure 154/80 H Pulse Oximetry 94 07/02/20 14:00 07/02/20 14:43 07/02/20 15:31 Temperature Pulse Rate 113 H 128 H 112 H Respiratory Rate 27 H Blood Pressure 148/93 H 150/92 H Pulse Oximetry 92 07/02/20 15:44 07/02/20 16:00 07/02/20 16:02 Temperature 37.1 C Pulse Rate 87 96 105 H Respiratory Rate 25 H 28 H Blood Pressure 130/78 Pulse Oximetry 94 90 07/02/20 17:25 07/02/20 17:35 07/02/20 17:40 Temperature Pulse Rate 109 H 96 90 Respiratory Rate 28 H Blood Pressure 151/75 H Pulse Oximetry 92 07/02/20 18:00 07/02/20 19:45 07/02/20 20:00 Temperature 37.3 C Pulse Rate 100 105 H 113 H Respiratory Rate 25 H 27 H 26 H Blood Pressure 148/79 H 158/81 H Pulse Oximetry 93 94 89 L 07/02/20 22:00 07/02/20 22:50 07/02/20 22:54 Temperature Pulse Rate 89 118 H 109 H Respiratory Rate 23 H 27 H Blood Pressure 167/100 H 172/66 H Pulse Oximetry 91 93 07/03/20 00:00 07/03/20 00:37 07/03/20 01:15 Te
--- NOTE | 2020-07-03 10:35 | PM.PNCARD ---
Progress Note: A&P Assessment and Plan (1) Chronic diastolic CHF (congestive heart failure): Code(s): I50.32 - Chronic diastolic (congestive) heart failure Status: Acute Assessment and Plan: Patient has chronic diastolic CHF and definitely is volume overloaded. However her renal function suggests that she has intravascular volume depletion. (2) Hypovolemia: Code(s): E86.1 - Hypovolemia Status: Acute Assessment and Plan: I think the patient may be intravascularly dry. (3) Acute kidney injury superimposed on chronic kidney disease: Code(s): N17.9 - Acute kidney failure, unspecified; N18.9 - Chronic kidney disease, unspecified Status: Acute Assessment and Plan: Undergoing dialysis (4) Lung cancer: Code(s): C34.90 - Malignant neoplasm of unspecified part of unspecified bronchus or lung Status: Acute Assessment and Plan: Lung cancer with localized progression and new lymph node by PET scanning, on chemotherapy, last dose probably end of each May. (5) Exposure to COVID-19 virus: Code(s): Z20.828 - Contact with and (suspected) exposure to other viral communicable diseases Status: Deleted Assessment and Plan: COVID positive with worsening inflammatory markers (6) Atrial fibrillation: Code(s): I48.91 - Unspecified atrial fibrillation Status: Acute Assessment and Plan: continue diltiazem. Subjective Date/time seen: 07/03/20 10:35 Interval history: 65yo female with AFib, HTN, CHF, COPD, Type 2 DM, and non-small cell lung cancer here for CHF exacerbation and NILSON. She developed worsening renal failure and became encephalopathic. Cole placed 06/27 and she underwent HD with improvement in her confusion but worsened on 06/28 and she removed her Cole. Date of service 07/03/2020: On dialysis. Atrial fibrillation with rapid ventricular response noted. further decompensation last night requiring intubation. Family meeting today Review of Systems Constitutional: Constitutional: Reports fatigue and Reports weakness ENT: Denies nasal discharge Cardiovascular: Cardiovascular: Denies chest pain, Reports pedal edema, Reports leg edema, Reports dyspnea and Reports dyspnea on exertion Respiratory: Respiratory: Denies chest congestion, Reports cough, Denies hemoptysis, Reports dyspnea and Reports dyspnea on exertion Gastrointestinal: Gastrointestinal: Denies abdominal pain and Reports bloating Genitourinary: Genitourinary: Denies hematuria and Denies flank pain Musculoskeletal: Musculoskeletal: Denies arthralgias Integumentary/Breasts: Skin/Breast: Denies rash Neurologic: Reports confusion and Reports weakness Psychiatric: Psychiatric: Reports confusion Endocrine: Endocrine: Reports fatigue Exam Narrative: Exam Narrative: Older morbidly obese WF Const: Orientation/consciousness: confusion Cardio: Rhythm: abnormal rhythm irregularly irregular GI: Other: some edema of post abdom wall and flanks. Skin: General skin exam: normal color Neuro: Other: intubated and sedated Extrem: Right lower extremity: lower leg Left lower extremity: lower leg Other: Moderate bilateral lower extremity edema Objective Data Vital Signs Vital Signs: Vital Signs - 24 hr 07/02/20 11:32 07/02/20 12:00 07/02/20 12:25 Temperature 36.8 C Pulse Rate 108 H 108 H 107 H Respiratory Rate 21 H 25 H Blood Pressure 154/80 H Pulse Oximetry 92 94 07/02/20 12:30 07/02/20 13:28 07/02/20 14:00 Temperature Pulse Rate 107 H 107 H 113 H Respiratory Rate 24 H 27 H Blood Pressure 154/80 H 148/93 H Pulse Oximetry 94 92 07/02/20 14:43 07/02/20 15:31 07/02/20 15:44 Temperature Pulse Rate 128 H 112 H 87 Respiratory Rate Blood Pressure 150/92 H Pulse Oximetry
[2020-07-03] MEDS: CISATRACURIUM BESYLATE 200 MG in DEXTROSE 5% 80 ML 18.72 ML IV CONT ×2 (11:14→16:02)
[2020-07-03] MEDS: DEXAMETHASONE SOD PHOS INJ 4 MG/ML VIAL 6 MG IV PUSH (11:16)
[2020-07-03] MEDS: BUMETANIDE INJ 2.5 MG/10 ML VIAL 2 MG IV PUSH (11:16)
[2020-07-03] MEDS: EUCERIN CREAM 120 GM JAR 1 APPLIC TOPICAL (11:17)
[2020-07-03] MEDS: TOLNAFTATE 1% POWDER 45 GM BTL 1 APPLIC TOPICAL ×2 (11:17→20:38)
--- NOTE | 2020-07-03 11:19 | WPDCNINT ---
Assessment and Plan Assessment and plan (1) Acute and chronic respiratory failure: Code(s): J96.20 - Acute and chronic respiratory failure, unspecified whether with hypoxia or hypercapnia Status: Acute Assessment and Plan: Chronic respiratory failure COVID-19 pneumonia, possible congestive heart failure, volume overload -patient was on BiPAP the last few days, desaturated early this morning requiring intubation and place the patient on mechanical ventilation. Patient was hypoxic with O2 sats in the 70s on the ventilator, she was being bagged with improvement in her oxygen saturations -ARDS physiology, low tidal volume strategy, 6 mL/kg tidal volumes, peep of 14, 100% FiO2, -start patient on Flolan -sedated with propofol, fentanyl infusion. Neuromuscular blockade with Nimbex -continue bronchodilators (2) COVID-19: Code(s): U07.1 - COVID-19 Status: Acute Assessment and Plan: Currently on dexamethasone IV. -she did not receive Remdesivir given her acute kidney injury -will follow inflammatory markers (3) Atrial fibrillation: Code(s): I48.91 - Unspecified atrial fibrillation Status: Acute Assessment and Plan: Infusion currently rate controlled AFib (4) Chronic diastolic CHF (congestive heart failure): Code(s): I50.32 - Chronic diastolic (congestive) heart failure Status: Acute Assessment and Plan: Patient has chronic diastolic CHF and definitely is volume overloaded. However her renal function suggests that she has intravascular volume depletion. -patient on dialysis for nephrology (5) COPD (chronic obstructive pulmonary disease): Code(s): J44.9 - Chronic obstructive pulmonary disease, unspecified Status: Acute Assessment and Plan: Continue bronchodilators (6) Acute kidney injury superimposed on chronic kidney disease: Code(s): N17.9 - Acute kidney failure, unspecified; N18.9 - Chronic kidney disease, unspecified Status: Acute Assessment and Plan: Acute on chronic kidney injury -renal ultrasound showed small left kidney than right -will hold diuretics at this time given patient shock Dialysis per nephrology, Pt in shock, on pressors, dialysis may be difficult. -electrolytes do not look too bad at this time, will discuss with nephrology and wait on dialysis (7) Shock: Code(s): R57.9 - Shock, unspecified Status: Acute Assessment and Plan: Shock, likely related to positive-pressure ventilation, sedation, sepsis -will check lactic acid -continue Levophed, vasopressin Aries-Synephrine needed -will obtain blood, urine, sputum culture Additional Plan Will discuss and and update family Code status: Full code Critical care time spent: 47 minutes Venous insufficiency, will place central Due to a high probability of clinically significant, life threatening deterioration, the patient required my highest level of preparedness to intervene emergently and I personally spent this critical care time directly and personally managing the patient. This critical care time included obtaining a history; examining the patient; pulse oximetry; ordering and review of studies; arranging urgent treatment with development of a management plan; evaluation of patient's response to treatment; frequent reassessment; and discussions with other providers. It was exclusive of separately billable procedures and treating other patients and teaching time. Please see Assessment and Plan section and the rest of the note for further information on patient assessment and treatment Inletter Consult Note Consult date: 07/03/20 Time Seen: 07:04 Reason for consult: Acute respiratory failure, Covid 19 pneumonia, Acute on chronic kidney disease requiring HD, Chronic CHF HPI: Kylee Brand is a 65 year old female AFib, HTN, CHF, COPD, Type 2 DM, and non-small cell lung cancer here for CHF exacerbation and NILSON. She developed worsening renal
[2020-07-03 11:32] LABS: Glucose Point of Care 232 (65-105)
--- NOTE | 2020-07-03 12:52 | PCDIET ---
Nutrition Follow-Up Complete: Nutrition Diagnosis: Inadequate oral intake related to multiple medical issues +/- confusion as evidenced by minimal intakes x 3 days. Nutrition Goal: Patient to consume 50% of meals/supplements or greater. Goal not met. Patient now intubated with OG to LIS. MD order to keep OG to suction at this time. RN reporting output that is fairly significant. Last recorded weight is 156 kg which is decreased from last review. -I/O. Bowel Motility: BM x 1 today. Labs Reviewed: Glu (232) Meds Noted: Albuterol, Symbicort, Bumex, Nimbex, Decadron, Retacrit, Fentanyl, Atrovent, Lopressor, Levophed, Phenylephrine, Propofol (rate of 9.54mL/hr provides 251kcal per day), Vasopressin Additional Notes: Bilateral groin macerated. Will continue to monitor with new goal: patient to meet estimated nutritional needs. Nutrition Monitoring and Evaluation: Follow up in 3 days.
[2020-07-03 14:06] LABS: Basophils Percent Auto 0.1 % (0.2-1.2); Hematocrit 22.3 % (37.0-47.0); Immature Granulocyte Absolute 0.12 K/mm3 (0.00-0.031); Immature Granulocyte Percent A 1.1 % (0-0.5); Lymphocytes Percent Auto 2.8 % (18.3-44.2); Mean Corpuscular HGB Conc 30.5 g/dl (32-36); Mean Corpuscular Hemoglobin 32.4 pg (26-34); Mean Corpuscular Volume 106.2 fl (80-100); Mean Platelet Volume 12.9 fl (7.4-10.4); Monocytes Absolute Auto 0.3 K/mm3 (0.1-0.6); Neutrophils Absolute Auto 9.8 K/mm3 (1.3-6.7); Nucleated Red Blood Cells Perc 0.2 % (0.0-0.2); Platelet Count Result 50 k/mm3 (150-375); Red Cell Distribution Width 20.4 % (11.5-14.5); White Blood Count 10.5 K/mm3 (4.5-10.0)
[2020-07-03 14:13] LABS: Lactic Acid Reflex 1.3 mmol/L (0.7-2.1)
[2020-07-03 14:16] LABS: Hemoglobin 6.8 g/dL (12.0-15.0)
[2020-07-03 14:17] LABS: Alanine Aminotransferase 16 U/L (4-35); Albumin Level 3.1 g/dL (3.5-5.1); Alkaline Phosphatase 111 U/L (38-126); Anion Gap 7 mmol/L (8-16); Aspartate Amino Transferase 33 U/L (14-36); Bilirubin,Total 1.2 mg/dL (0.2-1.3); Blood Urea Nitrogen 78 mg/dL (7-17); Calcium 8.7 mg/dL (8.4-10.2); Carbon Dioxide 37 mmol/L (22-30); Chloride 94 mmol/L (98-107); Estimated CRCL calculation 25 ml/min; Estimated Glomerular Filt Rate 16; Glucose 246 mg/dL (65-105); Phosphorus 5.2 mg/dL (2.5-4.5); Potassium 4.5 mmol/L (3.4-5.0); Sodium 138 mmol/L (137-145)
[2020-07-03 14:20] LABS: Hemoglobin A1C 6.4 % (<5.7)
[2020-07-03 14:22] LABS: Lactate Dehydrogenase 544 U/L (313-618); Magnesium 2.2 mg/dL (1.6-2.3)
[2020-07-03 14:27] LABS: CRP 18.3 mg/dL (<1.0)
[2020-07-03 14:29] LABS: D Dimer 2.88 ug/mL (<0.48)
--- NOTE | 2020-07-03 14:40 | WPDPROCEDUR ---
Procedures Central Line Placement Right IJ: Central Line Date: 07/03/20 Discussed w/ the patient/family/POA,the placement of a central venous catheter, including its clinical necessity/indication & associated potential risks, benifits and alternatives.: Yes The patient/family/POA understand(s) and acknowledge(s) the need to proceed with central venous catheter insertion as an important element of the patient's clinical management.: Yes Time Out Performed: Yes Patient Position: supine Patient placed on monitor/pulse ox: Yes Provider Prep: mask, sterile gown, sterile gloves, Max. sterile barrier precautions, cap and hand hygiene with conventional soap/water or alcohol based hand rub Central line prep: 2% Chlorhexidine scrub Local anesthesia used: lidocaine 1% Amount of anesthesia used (ml): 3 Sterile US Technique with sterile gel/sterile probe covers: Yes Central line lumen inserted: triple [place]: 12 Length (cm): 16 Depth of Insertion (cm): 16 Post Procedure: sutured in place, good blood return, all ports aspirated, flushed, capped, transparent dressing, hemostatic product, antimicrobial product, securement product and aseptic technique maintained throughout procedure Post procedure x-ray: tip of catheter in good position and no pneumothorax seen Patient tolerated procedure: well Complications: none
[2020-07-03 15:10] LABS: Alveolar/Arterial O2 Gradient 588.8 mmHg; Base Excess ABG 3.2 mEq/l (+/-2.0); Carboxyhemoglobin 0.1 % THb (0-2.0); Device VENTILATOR; Fractional Inspired Oxygen 100 %; Methemoglobin ABG 0.4 %THb (0-1.5); Modified Allen's Test Pass; Oxygen Content ABG 14.1 %vol (16.0-22.0); Oxyhemoglobin 89.1 % THb (90.0-100.0); PCO2 ABG 56.7 mmHg (35.0-45.0); PO2 ABG 67.5 mmHg (80.0-100.0); PO2 FiO2 Ratio Arterial Blood 0.68 %; Reduced Hemoglobin 10.4 %THb (0-5.0); Site Drawn LEFT RADIAL; Total Hemoglobin 11.2 g/dL (12.0-18.0); pH ABG 7.341 (7.350-7.450)
[2020-07-03 15:11] LABS: Arterial Blood Gas PEEP 14 cmH2O; Arterial Blood Gas Tidal Volume 300 ml; Arterial Blood Gas Vent Mode CMV; Arterial Blood Gas Ventilator rate 34 /MIN
[2020-07-03] MEDS: VASOPRESSIN INJ 100 UNITS in DEXTROSE 5% 95 ML IV CONT (17:02)
[2020-07-03] MEDS: INSULIN ASPART (*BKC) 100 UNITS/ML SUB-Q (17:03)
[2020-07-03 17:09] LABS: Glucose Point of Care 284 (65-105)
--- NOTE | 2020-07-03 17:49 | PM.IMPN ---
Progress Note: A&P Assessment and Plan (1) Acute and chronic respiratory failure: Code(s): J96.20 - Acute and chronic respiratory failure, unspecified whether with hypoxia or hypercapnia Status: Acute Assessment and Plan: Patient with chronic respiratory failure with hypoxia on 5L at home. She has developed acute hypoxic and hypercarbic respiratory failure related to CHF complicated by COVID, COPD and lung CA. Had to intubated and [facility] ventilated this am. (2) Acute kidney injury superimposed on chronic kidney disease: Code(s): N17.9 - Acute kidney failure, unspecified; N18.9 - Chronic kidney disease, unspecified Status: Acute Assessment and Plan: Baseline Cr appears to be quite variable, however recently creatinine was around 2.1. Upon presentation, creatinine was 4.58. Patient likely intravascularly dry secondary to diuresis although she appears fluid overloaded. Renal ultrasound showed mild atrophy of the kidneys with no hydronephrosis. BUN and Cr increased to 93 and 6 respectfully on 06/27/20. Patient also became encephalopathic felt related to the uremia with hyperkalemia. Cole catheter placed on 06/27 and patient underwent hemodialysis. Continue dialysis to control fluid status as pressure will allow. Monitor renal function closely. dialyzed last 07/01 , bp too low today (3) COVID-19: Code(s): U07.1 - COVID-19 Status: Acute Assessment and Plan: Tested positive on 06/24/20. No true onset of symptoms as patient was tested due to close contact with known positive individual. CXR 06/23 showed mild infiltrates at the lung bases and CHF. IV dexamethasone started 06/26/20. She is not a candidate for Remdesivir given her kidney failure. She has a baseline O2 requirement of 5L. Trend acute phase reactants. Supportive care to include bronchodilators, expectorants, and antipyretics. Continue isolation precautions. repeat cxr am 07/03 worsened and intubated today (4) CHF (congestive heart failure): Qualifiers: Heart failure chronicity: acute on chronic Heart failure type: unspecified Qualified Code(s): I50.9 - Heart failure, unspecified Code(s): I50.9 - Heart failure, unspecified Status: Inactive Assessment and Plan: Chronic diastolic CHF. It appears that she had been non compliant with her dietary restrictions and medications. Echo on 06/16/20 showed EF of 55-60% with abnormal LV diastolic function. Diuretics held. Appreciate cardiology and nephrology input. HD to control fluid status. (5) Hyperkalemia: Code(s): E87.5 - Hyperkalemia Status: Acute Assessment and Plan: Secondary to kidney disease. Potassium elevated at 5.8 on 06/25/20 and patient did receive PO potassium supplement at that time. Therefore, potassium lowering therapy was initiated. Potassium climbed to 6.6 before dialysis. . Monitor electrolytes closely (6) Altered mental status: Code(s): R41.82 - Altered mental status, unspecified Status: Acute Assessment and Plan: AMS 2nd to acute metabolic encephalopathy related to renal failure and probable covid. . no improvement with HD, consider MRI brain since she does have lung CA but unable to do so with bipap. (7) DM2 (diabetes mellitus, type 2): Code(s): E11.9 - Type 2 diabetes mellitus without complications Status: Acute Assessment and Plan: A1c is 6.0. Glucose reviewed on 07/03 Blood sugars have been generally well controlled. Continue Accu-Cheks ACHS, SSI, and hypoglycemia protocol. Metformin is on hold. Patient's weekly injectable Ozempic is non formulary. FBS today 168 (8) Non-small cell lung cancer (NSCLC): Code(s): C34.90 - Malignant neoplasm of unspecified part of unspecified bronchus or lung Status: Acute Assessment and Plan: The patient is current with Dr. Izaguirre at [facility]. Last chem about 6 weeks ago a
[2020-07-03 19:38] LABS: Alveolar/Arterial O2 Gradient 580.5 mmHg; Carboxyhemoglobin 0.3 % THb (0-2.0); Fractional Inspired Oxygen 100 %; HCO3 ABG 31.4 mEq/l (22.0-26.0); Methemoglobin ABG 0.3 %THb (0-1.5); Oxygen Content ABG 13.7 %vol (16.0-22.0); Oxygen Saturation ABG 96.2 % (95.0-100.0); Oxyhemoglobin 94.2 % THb (90.0-100.0); PCO2 ABG 49.9 mmHg (35.0-45.0); PO2 ABG 82.6 mmHg (80.0-100.0); PO2 FiO2 Ratio Arterial Blood 0.83 %; Reduced Hemoglobin 5.2 %THb (0-5.0); Total Hemoglobin 10.3 g/dL (12.0-18.0); pH ABG 7.417 (7.350-7.450)
[2020-07-03 19:39] LABS: Arterial Blood Gas Vent Mode CMV; Arterial Blood Gas Ventilator rate 34 /MIN; Device VENTILATOR; Modified Allen's Test Unable to perform; Site Drawn RIGHT RADIAL
[2020-07-03 19:40] LABS: Arterial Blood Gas PEEP 14 cmH2O; Arterial Blood Gas Tidal Volume 300 ml
[2020-07-03 21:56] LABS: Hematocrit 31.1 % (37.0-47.0); Hemoglobin 9.7 g/dL (12.0-15.0)
[2020-07-03] MEDS: CISATRACURIUM BESYLATE 200 MG in DEXTROSE 5% 80 ML 14.04 ML IV CONT (21:58)
[2020-07-04] VITALS (34 sets, daily range): BP systolic 40–158; BP diastolic 29–89; PULSE 96–129; RESP 34–38; TEMP 36.2–37.4; O2SAT 91–99
[2020-07-04] MEDS: NOREPINEPHRINE 8 MG/D5W 250 ML 8 MG/250 ML BAG 56.25 MG IV CONT ×3 (00:47→12:01)
[2020-07-04] MEDS: INSULIN ASPART (*BKC) 100 UNITS/ML SUB-Q ×2 (00:49→06:52)
[2020-07-04 01:03] LABS: Alveolar/Arterial O2 Gradient 482.4 mmHg; Base Excess ABG 4.7 mEq/l (+/-2.0); Carboxyhemoglobin 0.3 % THb (0-2.0); Fractional Inspired Oxygen 90 %; Methemoglobin ABG 0.4 %THb (0-1.5); Oxygen Content ABG 14.8 %vol (16.0-22.0); Oxygen Saturation ABG 95.2 % (95.0-100.0); Oxyhemoglobin 93.6 % THb (90.0-100.0); PO2 FiO2 Ratio Arterial Blood 0.97 %; Reduced Hemoglobin 5.7 %THb (0-5.0); Total Hemoglobin 11.2 g/dL (12.0-18.0)
[2020-07-04 01:04] LABS: Device VENTILATOR; Modified Allen's Test Unable to perform; PCO2 ABG 70.5 mmHg (35.0-45.0); Site Drawn RIGHT RADIAL; pH ABG 7.288 (7.350-7.450)
[2020-07-04 01:05] LABS: Arterial Blood Gas PEEP 14 cmH2O; Arterial Blood Gas Tidal Volume 300 ml; Arterial Blood Gas Vent Mode CMV; Arterial Blood Gas Ventilator rate 34 /MIN
[2020-07-04 01:16] LABS: Glucose Point of Care 336 (65-105)
[2020-07-04] MEDS: EPOPROSTENOL SODIUM 0.5 MG VIAL 1 MG INHALATION ×2 (01:35→07:49)
[2020-07-04] MEDS: AMIODARONE 360 MG/D5W 200 ML 360 MG/200 ML BAG 33.33 MG IV CONT (02:22)
[2020-07-04 06:08] LABS: Basophils Percent Auto 0.2 % (0.2-1.2); Hematocrit 31.2 % (37.0-47.0); Hemoglobin 9.8 g/dL (12.0-15.0); Immature Granulocyte Absolute 0.19 K/mm3 (0.00-0.031); Immature Granulocyte Percent A 1.6 % (0-0.5); Immature Platelet Fraction Pct 12.6 % (0.9-11.2); Lymphocytes Absolute Auto 0.51 K/mm3 (0.9-3.2); Lymphocytes Percent Auto 4.2 % (18.3-44.2); Mean Corpuscular HGB Conc 31.4 g/dl (32-36); Mean Corpuscular Hemoglobin 32.2 pg (26-34); Mean Corpuscular Volume 102.6 fl (80-100); Mean Platelet Volume 13.8 fl (7.4-10.4); Monocytes Absolute Auto 0.7 K/mm3 (0.1-0.6); Monocytes Percent Auto 5.3 % (2.6-8.5); Neutrophils Absolute Auto 10.8 K/mm3 (1.3-6.7); Neutrophils Percent Auto 88.7 % (45.5-73.1); Nucleated Red Blood Cells Absolute Auto 0.1 K/mm3 (0.0-0.012); Nucleated Red Blood Cells Perc 0.5 % (0.0-0.2); Platelet Count Result 70 k/mm3 (150-375); Red Blood Count 3.04 M/mm3 (4.2-5.4); Red Cell Distribution Width 20.7 % (11.5-14.5); White Blood Count 12.2 K/mm3 (4.5-10.0)
[2020-07-04 06:21] LABS: Alanine Aminotransferase 17 U/L (4-35); Alkaline Phosphatase 125 U/L (38-126); Anion Gap 6 mmol/L (8-16); Aspartate Amino Transferase 32 U/L (14-36); Bilirubin,Total 1.2 mg/dL (0.2-1.3); Blood Urea Nitrogen 88 mg/dL (7-17); Calcium 8.6 mg/dL (8.4-10.2); Carbon Dioxide 36 mmol/L (22-30); Chloride 93 mmol/L (98-107); Estimated CRCL calculation 22 ml/min; Estimated Glomerular Filt Rate 13; Glucose 328 mg/dL (65-105); Magnesium 2.4 mg/dL (1.6-2.3); Phosphorus 6.2 mg/dL (2.5-4.5); Sodium 135 mmol/L (137-145)
[2020-07-04] MEDS: CISATRACURIUM BESYLATE 200 MG in DEXTROSE 5% 80 ML 9.36 ML IV CONT ×2 (06:53→13:51)
[2020-07-04 07:03] LABS: Ovalocytes 1+ (NORMAL); Tear Drop Cells 1+ (NORMAL)
[2020-07-04 07:04] LABS: Large Platelets Present
[2020-07-04 07:06] LABS: Poikilocytosis 1+ (NORMAL)
[2020-07-04 07:06] LABS: Glucose Point of Care 342 (65-105)
[2020-07-04] MEDS: TOLNAFTATE 1% POWDER 45 GM BTL 1 APPLIC TOPICAL (09:48)
[2020-07-04] MEDS: DEXAMETHASONE SOD PHOS INJ 4 MG/ML VIAL 6 MG IV PUSH (09:48)
--- NOTE | 2020-07-04 11:04 | PM.PNCARD ---
Progress Note: A&P Assessment and Plan (1) Chronic diastolic CHF (congestive heart failure): Code(s): I50.32 - Chronic diastolic (congestive) heart failure Status: Acute Assessment and Plan: Patient has chronic diastolic CHF and definitely is volume overloaded. However her renal function suggests that she has intravascular volume depletion. (2) Hypovolemia: Code(s): E86.1 - Hypovolemia Status: Acute Assessment and Plan: (3) Acute kidney injury superimposed on chronic kidney disease: Code(s): N17.9 - Acute kidney failure, unspecified; N18.9 - Chronic kidney disease, unspecified Status: Acute Assessment and Plan: Undergoing dialysis (4) Lung cancer: Code(s): C34.90 - Malignant neoplasm of unspecified part of unspecified bronchus or lung Status: Acute Assessment and Plan: Lung cancer with localized progression and new lymph node by PET scanning, on chemotherapy, last dose probably end of each May. (5) Exposure to COVID-19 virus: Code(s): Z20.828 - Contact with and (suspected) exposure to other viral communicable diseases Status: Deleted Assessment and Plan: COVID positive with worsening inflammatory markers (6) Atrial fibrillation: Code(s): I48.91 - Unspecified atrial fibrillation Status: Acute Assessment and Plan: continue diltiazem. Plan is for comfort care. Cardiology to sign off Subjective Date/time seen: 07/04/20 11:04 Interval history: 65yo female with AFib, HTN, CHF, COPD, Type 2 DM, and non-small cell lung cancer here for CHF exacerbation and NILSON. She developed worsening renal failure and became encephalopathic. Cole placed 06/27 and she underwent HD with improvement in her confusion but worsened on 06/28 and she removed her Cole. Date of service 07/04/2020: Still in atrial fibrillation on dialysis and intubated. Recent discussion with daughter per bellhop captain. Plan for comfort care Review of Systems Review of Systems: ROS unobtainable: Yes unobtainable due to endotracheal tube and unobtainable due to medical condition Cardiovascular: Cardiovascular: Reports dyspnea and Reports dyspnea on exertion Exam Narrative: Exam Narrative: Older morbidly obese WF Cardio: Rhythm: abnormal rhythm irregularly irregular GI: Other: . Neuro: Other: intubated and sedated Extrem: Right lower extremity: lower leg Left lower extremity: lower leg Other: Moderate bilateral lower extremity edema Objective Data Vital Signs Vital Signs: Vital Signs - 24 hr 07/03/20 11:14 07/03/20 11:18 07/03/20 12:00 Temperature Pulse Rate 100 109 H 119 H Respiratory Rate 34 H 34 H Blood Pressure 109/57 L 109/57 L 100/56 L Pulse Oximetry 98 07/03/20 13:13 07/03/20 13:18 07/03/20 14:00 Temperature Pulse Rate 116 H 114 H 103 H Respiratory Rate 34 H 34 H Blood Pressure 105/85 Pulse Oximetry 94 92 90 07/03/20 15:09 07/03/20 15:25 07/03/20 15:45 Temperature Pulse Rate 114 H 114 H 125 H Respiratory Rate 34 H Blood Pressure 93/48 L Pulse Oximetry 92 07/03/20 16:00 07/03/20 16:02 07/03/20 17:02 Temperature Pulse Rate 126 H 105 H 120 H Respiratory Rate 34 H 34 H Blood Pressure 103/44 L 100/57 L 93/48 L Pulse Oximetry 90 07/03/20 17:04 07/03/20 17:32 07/03/20 17:50 Temperature 37.7 C H Pulse Rate 125 H 132 H 104 H Respiratory Rate 34 H Blood Pressure 93/48 L 102/72 Pulse Oximetry 99 92 07/03/20 17:53 07/03/20 18:00 07/03/20 18:10 Temperature 37.4 C 37.7 C H Pulse Rate 115 H 112 H 112 H Respiratory Rate 34 H 34 H 34 H Blood Pressure 102/57 L 114/74 107/77 Pulse Oximetry 97 91 92 07/03/20 18:58 07/03/20 19:08 12/18/20 19:28 Temperature 37.6 C H Pulse Rate 121 H 122 H 114 H Respiratory Rate 3
[2020-07-04] MEDS: PROPOFOL IV EMULSION 100 ML 4.77 MG IV CONT (11:43)
--- NOTE | 2020-07-04 14:30 | WPDINTPN ---
Progress Note: A&P Assessment and Plan (1) Acute and chronic respiratory failure: Code(s): J96.20 - Acute and chronic respiratory failure, unspecified whether with hypoxia or hypercapnia Status: Acute Assessment and Plan: Chronic respiratory failure COVID-19 pneumonia, possible congestive heart failure, volume overload -patient was on BiPAP the last few days, desaturated on 07/[address] the patient on mechanical ventilation. Patient was hypoxic with O2 sats in the 70s on the ventilator, she was being bagged with improvement in her oxygen saturations yesterday. She remained on mechanical ventilation with requirement of 90% FiO2 and 14 of PEEP. Spoke to the family and they have decided about terminal extubation and currently preparation are being made for terminal extubation after she receives Ativan and morphine. (2) COVID-19: Code(s): U07.1 - COVID-19 Status: Acute Assessment and Plan: Will stop IV dexamethasone Zaiz patient will be made comfort care. -she did not receive Remdesivir given her acute kidney injury (3) Atrial fibrillation: Code(s): I48.91 - Unspecified atrial fibrillation Status: Acute Assessment and Plan: Will stop amiodarone drip because of patient being comfort care. (4) Chronic diastolic CHF (congestive heart failure): Code(s): I50.32 - Chronic diastolic (congestive) heart failure Status: Acute Assessment and Plan: Patient has chronic diastolic CHF and definitely is volume overloaded. No dialysis. (5) COPD (chronic obstructive pulmonary disease): Code(s): J44.9 - Chronic obstructive pulmonary disease, unspecified Status: Acute Assessment and Plan: Monitor (6) Acute kidney injury superimposed on chronic kidney disease: Code(s): N17.9 - Acute kidney failure, unspecified; N18.9 - Chronic kidney disease, unspecified Status: Acute Assessment and Plan: Acute on chronic kidney injury -renal ultrasound showed small left kidney than right She could not be dialyzed yesterday as well as today because of significant compromise hemodynamics. No further dialysis or any other aggressive my ear because of her comfort measure status. (7) Shock: Code(s): R57.9 - Shock, unspecified Status: Acute Assessment and Plan: Currently on 3 pressor with Levophed, vasopressin and epinephrine/Aries-Synephrine. All these pressors will be stopped is patient is being placed on comfort care only. Additional Plan As discussed earlier, I had a long discussion with patient's daughter, JUSTINA and she informed me that they had decided to withdrawal care and terminally extubate her and made her comfort care only. Code status: Comfort care with terminal extubation today Subjective Date/time seen: 07/04/20 14:30 She continued to be critically sick. She is requiring 3 places. She is on mechanical ventilation with 14 of PEEP in 90% FiO2. She could not be dialyzed yesterday because of significant hemodynamic compromise. He had minimal urine output of 900 cc. She still tachycardic. Belt And Link Shop Supervisor has been talking to the family and updating them about her clinical status. They had been discussing among the self for immediate goals of care discussion. I have been informed by the nurse that patient daughter called and wants to withdraw aggressive care and terminally extubate her. I had a long discussion on telephone with one of the daughter, JUSTINA. I apprised her about her clinical status with no significant improvement over the last 24 hours. She told me that patient did not want herself to be sustained on artificial breathing machine and rest of the artificial means. She has discussed with the rest of the family including her sister and has come to the conclusion that they will put her on comfort care and extubate her terminally. Patient family came around to the bedside around 2:00 p.m. an
[2020-07-04] MEDS: MORPHINE SULFATE INJ (*CRX) 10 MG/ML AMP 5 MG IV PUSH (14:43)
[2020-07-04] MEDS: LORazepam INJ (*CRX) 2 MG/ML VIAL IV PUSH (14:43)
--- NOTE | 2020-07-04 18:30 | P.DN_ITS ---
Discharge Sum: Prov Provider Primary care physician: Estevan Barrera DO Admitting provider: Lew Mendoza MD Consults: 06/23/20 Consult to Physician Routine Comment: Consulting Provider: Ronnie Dorsey call center coordinator/MD group to consult: Nephrology Reason for consultation: Acute on chronic renal Has provider been notified: Yes Consult to Physician Routine Comment: Consulting Provider: Darling Young call center coordinator/MD group to consult: Dr. sandoval Reason for consultation: Congestive heart failure decompensation Has provider been notified: Yes 06/27/20 Consult to Physician Routine Comment: Consulting Provider: Antonino Ocasio call center coordinator/MD group to consult: General surgery Reason for consultation: Temporary dialysis catheter Has provider been notified: Yes Discharge Sum: Diag Contributing Factors (1) Acute and chronic respiratory failure: (2) Acute kidney injury superimposed on chronic kidney disease: (3) COVID-19: (4) CHF (congestive heart failure): (5) Hyperkalemia: (6) Altered mental status: (7) DM2 (diabetes mellitus, type 2): (8) Non-small cell lung cancer (NSCLC): (9) Afib: (10) COPD (chronic obstructive pulmonary disease): (11) Benign hypertension: (12) Lower extremity edema: (13) Anemia: Discharge Sum: Summary Date and Time Date of admission: 06/23/20 19:39 Summary Details: 65-year-old female with chronic respiratory failure on home O2 4-5 L and chronic atrial fibrillation on anticoagulation admitted with acute on chronic respiratory failure and COVID pneumonia. Her renal status continue to deteriorate and was eventually hemodialyzed. On the a.m. of the her respiratory status further deteriorate she is intubated and mechanically ventilated. She had pancytopenia from her chemo and radiation treatments. She was transfused 1 units of packed cells on the a.m. of the . She continued to require high FiO2 80-90% prevent with high PEEP had 14 to maintain O2 saturations. The Intensive has had a discussion with the children and with her multiple comorbid problems they decided comfort care. She was extubated and short time afterward. Cause of non-small cell carcinoma lung complicated by renal failure and COVID pneumonia Additional Data Attending physician: Lew Mendoza MD
== END 2020-07-04 15:07 | disposition expired | DRG 208 ==
LOC: ANH2MED 06-24 11:59 → ANH3MEDSUR 06-25 02:07 → ANHIMU 06-27 11:52 → ANHICU 07-02 18:02 → ANH2MED 07-06 15:18 → ANH3MEDSUR 07-06 15:18 → ANHICU 07-06 15:18 → ANHIMU 07-06 15:18
PROVIDERS: Family Medicine; Internal Medicine; Internal Medicine Cardiovascular Disease; Internal Medicine Nephrology; Nurse Practitioner; Physician Assistant; Admitting Provider Internal Medicine; PCP Family Medicine; Visit Provider Internal Medicine
DX: U07.1 COVID-19 (principal); J12.89 Other viral pneumonia; J96.21 Acute and chronic respiratory failure with hypoxia; J96.22 Acute and chronic respiratory failure with hypercapnia; G93.41 Metabolic encephalopathy; D61.810 Antineoplastic chemotherapy induced pancytopenia; I50.33 Acute on chronic diastolic (congestive) heart failure; N17.9 Acute kidney failure, unspecified; I13.0 Hypertensive heart and chronic kidney disease with heart failure and stage 1 through stage 4 chronic kidney disease, or unspecified chronic kidney disease; Z68.43 Body mass index [BMI] 50.0-59.9, adult; I48.20 Chronic atrial fibrillation, unspecified; C34.90 Malignant neoplasm of unspecified part of unspecified bronchus or lung; T82.42XA Displacement of vascular dialysis catheter, initial encounter; E11.22 Type 2 diabetes mellitus with diabetic chronic kidney disease; N18.9 Chronic kidney disease, unspecified; E87.5 Hyperkalemia; J44.9 Chronic obstructive pulmonary disease, unspecified; E11.51 Type 2 diabetes mellitus with diabetic peripheral angiopathy without gangrene; E66.01 Morbid (severe) obesity due to excess calories; F41.1 Generalized anxiety disorder; E11.42 Type 2 diabetes mellitus with diabetic polyneuropathy; E83.42 Hypomagnesemia; E86.1 Hypovolemia; G47.33 Obstructive sleep apnea (adult) (pediatric); D63.1 Anemia in chronic kidney disease; Z96.653 Presence of artificial knee joint, bilateral; R57.8 Other shock; Z99.81 Dependence on supplemental oxygen; Z90.722 Acquired absence of ovaries, bilateral; Z90.710 Acquired absence of both cervix and uterus; Z90.49 Acquired absence of other specified parts of digestive tract; Z87.891 Personal history of nicotine dependence; Z91.11 Patient's noncompliance with dietary regimen; Z91.14 Patient's other noncompliance with medication regimen; Z99.2 Dependence on renal dialysis; I95.9 Hypotension, unspecified; T45.1X5A Adverse effect of antineoplastic and immunosuppressive drugs, initial encounter
CPT/HCPCS: 36415; 36430; 36600; 71045; 76775; 80048; 80053; 80069; 80076; 80162; 82248; 82375; 82570; 82607; 82728; 82805; 83036; 83050; 83605; 83615; 83735; 84100; 84132; 84156; 84300; 84439; 84443; 84480; 85014; 85018; 85025; 85027; 85055; 85380; 86140; 86704; 86706; 86803; 86850; 86900; 86901; 86923; 87040; 87070; 87086; 87205; 87340; 87635; 93970; 94002; 94003; 94640; 97110; 97161; 97165; 97535; A9270; C1751; C1752; C9803; G0257; J0282; J0360; J0610; J1100; J1160; J1644; J1815; J1940; J2060; J2270; J2370; J2704; J3010; J3475; J7030; J7050; J7060; P9016; P9047; P9059; Q5106; U0003